=== PATIENT | female | born 1950 | race Caucasian/White ===

== ENCOUNTER 2016-09-27 13:22 | Emergency (ER) | payer MEDICARE, OTHER ==
[~2016-09-27] VITALS: Ht 160 cm; Wt 57.2 kg
[~2016-09-27 13:22] MED LIST: ACYC400T PO; ACYLOVIR PO; ASPI325T4 PO; BIMA2.5D EACHEYE; CARV3.12 PO; CEPH500C PO; CETI10CA PO; CRESTOR5 MG PO; CYAN10005 PO; DICL112S2 TP; DIPH25CA58 PO; ERYT250T14 PO; ESCI5TAB PEG; ESOM40CA PO; ESTR50GE TD; FENO160T PO; FENT1PAT17 TD; FENT1PAT19 TD; FLUO20CA16 PO; FLUT16SP NS; GABA100C6 PEG; HYDR-2680 PO; ISOS30TA4 PO; L GA1CAP2 PO; LAMO25TA PEG; LATA2.5D3 EACHEYE; LEVO100T5 PO; LEVO75TA5 PO; LORA0.5T PO; LOSA50TA6 PO; MELA5TAB4 PO; METO10TA81 PO; METO25TA4 PO; MULT-246 PO; MUPI22OI2 TP; ONDA4TAB10 PO; ONDA4TAB7 PO; PANT40TA3 PO; PRAV40TA2 PO; RANI300C PO; RANI300T PO; RANI50VI IJ; STOOL SOFTERNER PO; SUCR1TAB29 PO; TIZA4CAP3 PO; TRAZ50TA15 PO; [UNRECOGNIZED DRUG - OTHER] OU; lortab; lortab PO; renexa; resperidone
[2016-09-27 14:00] VITALS: BP 120/69
[2016-09-27] MEDS ORDERED: FENTANYL PF 100 MCG/2 ML VIAL. IV PRN (14:00)
--- NOTE | 2016-09-27 14:10 | PHYS DOC ---
Past Medical History Past Medical History: Arthritis, Arrhythmia, Fibromyalgia, Glaucoma, Hypertension, Hypothyroid, [place], TIA, Other Additional Past Medical Histor: 2 bulging discs, tremors, ULCERS, gastroparesis Past Surgical History: Cholecystectomy, Hysterectomy, Pacemaker, Other Additional Past Surgical Histo: L breast bx, fibroma L posterior knee, cardiac cath X 4 Alcohol Use: None Drug Use: None Adult General Chief Complaint Chief Complaint: GTUBE REPLACEMENT/MALFUNCTION HPI HPI 66-year-old female presenting to the emergency department after her G-tube fell out. She reports happened around 12:30. She also feels her J-tube is further out than normal. Location GI tract. Duration once. Timing this morning/ afternoon. No alleviating factors present. She denies nausea or vomiting. Review of Systems Review of Systems ROS negative for fevers chills nausea vomiting chest pain shortness of breath. All other review of systems is negative unless otherwise noted in history of present illness. Current Medications Current Medications Current Medications Medications (Trade) Dose Ordered Sig/Chantell Start Time Stop Time Status Last Admin Dose Admin Fentanyl Citrate (Fentanyl 2ml Vial) 50 mcg PRN Q30MIN PRN 09/27/16 14:00 09/27/16 14:57 DC Lidocaine HCl (Glydo (Lidocaine) Jelly) 1 donya 1X ONCE 09/27/16 14:30 09/27/16 14:31 DC 09/27/16 14:25 1 DONYA Allergies Allergies Allergies Coded Allergies Type Severity Reaction Last Updated Verified Penicillins Allergy Severe Rash 07/23/15 Yes Sulfa (Sulfonamide Antibiotics) Allergy Severe Rash 07/23/15 Yes benzocaine Allergy Severe SHORTNESS OF BREATH LOCAL ANESTHETICS 07/23/15 Yes lidocaine Allergy Severe SHORTNESS OF BREATH- LOCAL ANESTHESIA 07/23/15 Yes sulfite Allergy Severe Rash 07/23/15 Yes thimerosal Allergy Severe Anaphylaxis 07/23/15 Yes yellow dye Allergy Severe Rash 07/23/15 Yes Iodine and Iodide Containing Produc Allergy Intermediate Hives--Premedication does not work per patient 10/26/15 Yes barium sulfate Allergy Intermediate rash 10/26/15 Yes monosodium glutamate Allergy Intermediate Rash 07/23/15 Yes nickel Allergy Intermediate SEE COMMENT 07/23/15 Yes NSAIDS (Non-Steroidal Anti-Inflamma Adverse Reaction Intermediate Nausea and Vomiting 07/23/15 Yes Physical Exam Physical Exam Constitutional: Well developed, well nourished, no acute distress, non-toxic appearance. HENT: Normocephalic, atraumatic, bilateral external ears normal, oropharynx moist, no oral exudates, nose normal. [] Eyes: PERRLA, EOMI, conjunctiva normal, no discharge. [] Neck: Normal range of motion, no tenderness, supple, no stridor. Cardiovascular:Heart rate regular rhythm, no murmur [] Lungs & Thorax: Bilateral breath sounds clear to auscultation Abdomen: Abdomen has 2 ostomy sites in the epigastric region. The one in the more caudal direction is the G-tube ostomy. There is no surrounding evidence of infection. The caudal ostomy has the J tube in place currently. Skin: Warm, dry, no erythema, no rash. Back: No tenderness, no CVA tenderness. [] Extremities: No tenderness, no cyanosis, no clubbing, ROM intact, no edema. [] Neurologic: Alert and oriented X 3, normal motor function, normal sensory function, no focal deficits noted. Psychologic: Affect normal, judgement normal, mood normal. [] Current Patient Data Vital Signs Vital Signs Date Time Temp Pulse Resp B/P Pulse Ox O2 Delivery O2 Flow Rate FiO2 09/27/16 14:00 84 18 120/69 96 Room Air 09/27/16 13:32 98.2 98.2 EKG EKG [] Radiology/Procedures Radiology/Procedures [] Course & Med Decision Making Course & Med Decision Making Pertinent Labs and Imaging studies reviewed. (See chart for details) 66-year-old female presenting to the emergency department today after her gastrostomy tube fell out. On evaluation the patient's vital signs showed mild tachycardia likely secondary to pain. Otherwise afebrile. Physical exam showed both ostomy sites without any evidence of infection. The patient's G-tube was replaced in the emergency department. With a 22 [place]. Patient tolerated the procedure well. She was then subsequent discharged home to follow up with her GI doctor on Thursday or Thursday as she was concerned about her J-tube. Dragon Disclaimer Dragon Disclaimer This electronic medical record was generated, in whole or in part, using a voice recognition dictation system. Departure Departure Impression: Primary Impression: Malfunction of gastrostomy tube Disposition: HOME, SELF-CARE Condition: STABLE Referrals: LUCIANA RODRIGUEZ MD (PCP) Patient Instructions: Gastrostomy Tube, Adult Additional Instructions: Thank you for allowing us to participate in your care today. Followup with your GI if your symptoms do not improve. If you do not have a primary care provider you can ask for a list of our primary care providers. Return to the emergency department you have any new or concerning findings. This should be evaluated by the primary care physician and any necessary consulting services for continued management within a few days after discharge. Return to emergency room if you have any new or concerning symptoms including but not limited to fever, chills, nausea, vomiting, intractable pain, any new rashes, chest pain, shortness of air, uncontrolled bleeding, difficulty breathing, and/or vision loss. EILEEN DNAIELS MD Sep 27, 2016 14:10
[2016-09-27] MEDS ORDERED: LIDOCAINE 2% JELLY 6ML IN APPLICATOR. MM ONE (14:30)
== END 2016-09-27 14:57 | disposition home or self-care (01) ==
LOC: ER 13:22
DX: K94.23 Gastrostomy malfunction (principal); E03.9 Hypothyroidism, unspecified; I25.2 Old myocardial infarction; M79.7 Fibromyalgia; H40.9 Unspecified glaucoma; I10 Essential (primary) hypertension; M19.90 Unspecified osteoarthritis, unspecified site; Z86.73 Personal history of transient ischemic attack (TIA), and cerebral infarction without residual deficits; Z90.49 Acquired absence of other specified parts of digestive tract; Z90.710 Acquired absence of both cervix and uterus; Z95.0 Presence of cardiac pacemaker; Z88.0 Allergy status to penicillin; Z88.2 Allergy status to sulfonamides; Z88.4 Allergy status to anesthetic agent; Z88.1 Allergy status to other antibiotic agents; Z88.8 Allergy status to other drugs, medicaments and biological substances; Y84.8 Other medical procedures as the cause of abnormal reaction of the patient, or of later complication, without mention of misadventure at the time of the procedure; Y92.89 Other specified places as the place of occurrence of the external cause
CPT/HCPCS: 43760; 96374; 99284-25; 99285-25

== ENCOUNTER 2016-09-27 21:57 | Emergency (ER) | payer MEDICARE, OTHER ==
[~2016-09-27] VITALS: Ht 160 cm; Wt 57.2 kg
[2016-09-27 22:03] VITALS: BP 144/77
--- NOTE | 2016-09-27 22:18 | PHYS DOC ---
Past Medical History Past Medical History: Arthritis, Arrhythmia, Fibromyalgia, Glaucoma, Hypertension, Hypothyroid, [place], TIA, Other Additional Past Medical Histor: 2 bulging discs, tremors, ULCERS, gastroparesis Past Surgical History: Cholecystectomy, Hysterectomy, Pacemaker, Other Additional Past Surgical Histo: L breast bx, fibroma L posterior knee, cardiac cath X 4 Alcohol Use: None Drug Use: None Adult General Chief Complaint Chief Complaint: ABDOMINAL PAIN HPI HPI Patient is a 66 year old female who presents with pain at site of G-tube. Patient was in the emergency department earlier today with gastrostomy tube problem. It was replaced and she was discharged. She presents again tonight with pain at the site of the G-tube insertion. No fever. She has taken Lortab at home with insufficient relief. No other acute complaints. Review of Systems Review of Systems Constitutional: Denies fever or chills Eyes: Denies change in visual acuity or eye pain HENT: Denies nasal congestion or sore throat Respiratory: Denies cough or shortness of breath Cardiovascular: Denies chest pain GI: Pain at site of G-tube insertion. Denies nausea, vomiting, bloody stools or diarrhea : Denies dysuria or hematuria Musculoskeletal: Denies back pain or joint pain Integument: Denies rash or skin lesions Neurologic: Denies headache, focal weakness or sensory changes Current Medications Current Medications Current Medications Medications (Trade) Dose Ordered Sig/Chantell Start Time Stop Time Status Last Admin Dose Admin Fentanyl Citrate (Fentanyl 2ml Vial) 50 mcg 1X ONCE 09/27/16 22:30 09/27/16 22:31 DC 09/27/16 22:44 50 MCG Allergies Allergies Allergies Coded Allergies Type Severity Reaction Last Updated Verified Penicillins Allergy Severe Rash 07/23/15 Yes Sulfa (Sulfonamide Antibiotics) Allergy Severe Rash 07/23/15 Yes benzocaine Allergy Severe SHORTNESS OF BREATH LOCAL ANESTHETICS 07/23/15 Yes lidocaine Allergy Severe SHORTNESS OF BREATH- LOCAL ANESTHESIA 07/23/15 Yes sulfite Allergy Severe Rash 07/23/15 Yes thimerosal Allergy Severe Anaphylaxis 07/23/15 Yes yellow dye Allergy Severe Rash 07/23/15 Yes Iodine and Iodide Containing Produc Allergy Intermediate Hives--Premedication does not work per patient 10/26/15 Yes barium sulfate Allergy Intermediate rash 10/26/15 Yes monosodium glutamate Allergy Intermediate Rash 11/9/15 Yes nickel Allergy Intermediate SEE COMMENT 07/23/15 Yes NSAIDS (Non-Steroidal Anti-Inflamma Adverse Reaction Intermediate Nausea and Vomiting 07/23/15 Yes Physical Exam Physical Exam Constitutional: Well developed, well nourished, no acute distress, non-toxic appearance HENT: Normocephalic, atraumatic, bilateral external ears normal Eyes: EOMI, conjunctiva normal, no discharge Neck: Normal range of motion, no stridor Cardiovascular: Heart rate normal, regular rhythm, no murmur Lungs & Thorax: Bilateral breath sounds clear to auscultation Abdomen: Bowel sounds normal, soft, non-distended, TTP around site of G-tube insertion; no erythema, swelling, or warmth to touch at site; small amount serous drainage around tube Skin: Warm, dry, no erythema, no rash Extremities: No obvious deformity, no edema Neurologic: Alert and oriented X 3, no gross deficits noted Current Patient Data Vital Signs Vital Signs Date Time Temp Pulse Resp B/P Pulse Ox O2 Delivery O2 Flow Rate FiO2 09/27/16 22:44 18 98 09/27/16 22:03 98.9 82 144/77 Room Air 98.9 Lab Values Laboratory Tests Test 09/27/16 22:30 White Blood Count 7.6x10^3/uL (4.0-11.0) Red Blood Count 4.27x10^6/uL (3.50-5.40) Hemoglobin 12.1g/dL (12.0-15.5) Hematocrit 36.1% (36.0-47.0) Mean Corpuscular Volume 85fL (79-100) Mean Corpuscular Hemoglobin 28pg (25-35) Mean Corpuscular Hemoglobin Concent 33g/dL (31-37) Red Cell Distribution Width 14.3% (11.5-14.5) Platelet Count 189x10^3/uL (140-400) Neutrophils (%) (Auto) 45% (31-73) Lymphocytes (%) (Auto) 36% (24-48) Monocytes (%) (Auto) 11% (0-9) H Eosinophils (%) (Auto) 7% (0-3) H Basophils (%) (Auto) 1% (0-3) Neutrophils # (Auto) 3.4x10^3uL (1.8-7.7) Lymphocytes # (Auto) 2.7x10^3/uL (1.0-4.8) Monocytes # (Auto) 0.9x10^3/uL (0.0-1.1) Eosinophils # (Auto) 0.5x10^3/uL (0.0-0.7) Basophils # (Auto) 0.1x10^3/uL (0.0-0.2) Sodium Level 139mmol/L (136-145) Potassium Level 3.6mmol/L (3.5-5.1) Chloride Level 100mmol/L (98-107) Carbon Dioxide Level 30mmol/L (21-32) Anion Gap 9 (6-14) Blood Urea Nitrogen 15mg/dL (7-20) Creatinine 0.8mg/dL (0.6-1.0) Estimated GFR (Cockcroft-Gault) 72.2 Glucose Level 103mg/dL (70-99) H Calcium Level 9.0mg/dL (8.5-10.1) Laboratory Tests 09/27/16 22:30 Laboratory Tests 09/27/16 22:30 EKG EKG [] Radiology/Procedures Radiology/Procedures CT A/P: IMPRESSION 1. There is gastrostomy, also jejunostomy present. There is no significant free fluid or free air. There is a ventral hernia of the superior abdomen containing partial wall of the anterior stomach. Course & Med Decision Making Course & Med Decision Making Pertinent Labs and Imaging studies reviewed. (See chart for details) Patient is 66-year-old female presents with pain side of gastrostomy tube insertion which was replaced today. Will obtain CT abdomen/pelvis to evaluate placement. Labs ordered. IV pain medication ordered for patient comfort. Imaging results as above; I confirmed with radiology that G-tube in correct place. Labs unremarkable. No fever, no leukocytosis, no evidence of infectious processes at site on physical exam. Per my chart review, patient has been seen at least a dozen times during the past year with complaints related to her feeding tube. Discussed results with patient, as well as need to follow up with specialist. Patient given return precautions. Discharged home. Dragon Disclaimer Dragon Disclaimer This electronic medical record was generated, in whole or in part, using a voice recognition dictation system. Departure Departure Impression: Primary Impression: Complication of gastrostomy tube Disposition: HOME, SELF-CARE Condition: STABLE Referrals: LUCIANA RODRIGUEZ MD (PCP) Patient Instructions: Gastrostomy Tube, Adult Additional Instructions: Thank you for allowing us to provide care today in the Emergency Department. Schedule a follow up appointment with your dialysis biomed technician and surgeon as soon as possible. Return promptly to the Emergency Department if you develop any new or concerning symptoms, such as fever or worsening pain. ANGELINE SALGADO MD Sep 27, 2016 22:18
[2016-09-27] MEDS ORDERED: FENTANYL PF 100 MCG/2 ML VIAL. IV ONE (22:30)
[2016-09-27 22:40] LABS: BASO # 0.1 x10^3/uL (0.0-0.2); BASO % 1 % (0-3); EOS % 7 % (0-3); HEMATOCRIT 36.1 % (36.0-47.0); HEMOGLOBIN 12.1 g/dL (12.0-15.5); LYMPH # 2.7 x10^3/uL (1.0-4.8); LYMPH % 36 % (24-48); MEAN CORPUSCULAR HEMOGLOBIN 28 pg (25-35); MEAN CORPUSCULAR HGB CONC 33 g/dL (31-37); MEAN CORPUSCULAR VOLUME 85 fL (79-100); MONO % 11 % (0-9); NEUT % 45 % (31-73); PLATELET COUNT 189 x10^3/uL (140-400); RED BLOOD COUNT 4.27 x10^6/uL (3.50-5.40); RED CELL DISTRIBUTION WIDTH 14.3 % (11.5-14.5); WHITE BLOOD COUNT 7.6 x10^3/uL (4.0-11.0)
[2016-09-27 22:50] LABS: CREATININE 0.8 mg/dL (0.6-1.0); GFR 72.2; POTASSIUM 3.6 mmol/L (3.5-5.1)
--- NOTE | 2016-09-27 23:02 | RAD ---
PROCEDURE CT abdomen pelvis without contrast. HISTORY Pain and drainage to abdomen after G-tube replaced today TECHNIQUE Noncontrast CT imaging was performed of the abdomen and pelvis, multiplanar reconstruction images submitted. Exposure: One or more of the following individualized dose reduction techniques were utilized for this exam: 1. Automated exposure control. 2. Adjustment of the mA and/or kV according to patient size. 3. Use of iterative reconstruction technique. COMPARISON None FINDINGS There are leads from electronic cardiac device, not fully included. There is no significant abnormality of the limited visualized lung bases. Accurate evaluation of the abdominal visceral organs is limited without intravenous contrast. There is no obvious focal abnormality of the liver, spleen, or slightly fat replaced pancreas. There is no adrenal nodularity. There has been cholecystectomy. There is no renal or ureteral calculus or hydronephrosis. There is gastrostomy present. There is also jejunostomy present. Accurate evaluation of bowel is limited without oral contrast. There is no significant bowel dilatation, free air, free fluid. There is a broad ventral hernia of the superior abdomen, neck on the order of 4.8 centimeters transverse, partial wall of the anterior stomach involved. There are a few small subcentimeter inguinal lymph nodes bilaterally. Urinary bladder morphology is within normal limits. There is mild dextroscoliosis of the inferior lumbar spine. There is degenerative disc disease greatest at L2-3. There is grade 1 anterior spondylolisthesis at L4-5. IMPRESSION 1. There is gastrostomy, also jejunostomy present. There is no significant free fluid or free air. There is a ventral hernia of the superior abdomen containing partial wall of the anterior stomach. Electronically signed by: Cesar Waller MD (Sep 27, 2016 23:00:36)
== END 2016-09-27 23:45 | disposition home or self-care (01) ==
LOC: ER 21:57
DX: K94.29 Other complications of gastrostomy (principal); K43.9 Ventral hernia without obstruction or gangrene; I10 Essential (primary) hypertension; E03.9 Hypothyroidism, unspecified; K31.84 Gastroparesis; M79.7 Fibromyalgia; H40.9 Unspecified glaucoma; I25.2 Old myocardial infarction; Z86.73 Personal history of transient ischemic attack (TIA), and cerebral infarction without residual deficits; Z95.0 Presence of cardiac pacemaker; M19.90 Unspecified osteoarthritis, unspecified site; Z90.710 Acquired absence of both cervix and uterus; Z90.49 Acquired absence of other specified parts of digestive tract; Z87.19 Personal history of other diseases of the digestive system; Z88.0 Allergy status to penicillin; Z88.2 Allergy status to sulfonamides; Z88.8 Allergy status to other drugs, medicaments and biological substances; Z88.4 Allergy status to anesthetic agent; Z91.041 Radiographic dye allergy status; Y83.3 Surgical operation with formation of external stoma as the cause of abnormal reaction of the patient, or of later complication, without mention of misadventure at the time of the procedure; Y92.89 Other specified places as the place of occurrence of the external cause
CPT/HCPCS: 36415; 43760; 74176; 80048; 85027; 96374; 99285; J3010

== ENCOUNTER 2016-09-30 09:59 | Outpatient (CLI) | payer MEDICARE, OTHER ==
[2016-09-30 10:30] LABS: BASO % 1 % (0-3); EOS % 8 % (0-3); HEMATOCRIT 35.3 % (36.0-47.0); HEMOGLOBIN 11.7 g/dL (12.0-15.5); LYMPH # 2.1 x10^3/uL (1.0-4.8); LYMPH % 45 % (24-48); MEAN CORPUSCULAR HEMOGLOBIN 28 pg (25-35); MEAN CORPUSCULAR HGB CONC 33 g/dL (31-37); MEAN CORPUSCULAR VOLUME 85 fL (79-100); MONO % 9 % (0-9); NEUT % 37 % (31-73); PLATELET COUNT 174 x10^3/uL (140-400); RED BLOOD COUNT 4.18 x10^6/uL (3.50-5.40); RED CELL DISTRIBUTION WIDTH 14.3 % (11.5-14.5); WHITE BLOOD COUNT 4.6 x10^3/uL (4.0-11.0)
[2016-09-30 10:37] LABS: PROTHROMBIN TIME PATIENT 12.6 SEC (11.7-14.0)
[2016-09-30 10:38] VITALS: BP 109/58
[2016-09-30] MEDS ORDERED: FENTANYL PF 100 MCG/2 ML VIAL. ONE (13:12)
[2016-09-30] MEDS ORDERED: MIDAZOLAM HCL 2 MG/2 ML VIAL. ONE (13:12)
[2016-09-30] MEDS ORDERED: FENTANYL PF 100 MCG/2 ML VIAL. IV ONE (13:30)
[2016-09-30] MEDS ORDERED: MIDAZOLAM HCL 2 MG/2 ML VIAL. IV ONE (13:30)
[2016-09-30] MEDS ORDERED: LIDOCAINE 1% / SOD BICARB 8.4% 20 ML VIAL. IJ ONE (13:30)
[2016-09-30 13:31] VITALS: BP 134/64
[2016-09-30 13:50] VITALS: BP 120/64
[2016-09-30 14:30] VITALS: BP 130/62
--- NOTE | 2016-09-30 14:59 | PDOC ---
BRIEF OPERATIVE NOTE Pre-Op Diagnosis G and J tube dependent Post-Op Diagnosis same Procedure Performed G and J tube exchanges under fluoroscopy Surgeon Lilian Anesthesia Type: Conscious Sedation Findings G and J tubes in good position and suitable for use Complications No immediate SERGEI JUNIOR MD Sep 30, 2016 14:59
--- NOTE | 2016-09-30 14:59 | PDOC ---
MODERATE SEDATION ASSESSMENT RISKS/ALTERNATIVES Risks/Alternatives Risks and alternatives of this type of sedation and procedure discussed with: RISK/ALTERNATIVES: Patient H & P ON CHART H & P H & P on chart and reviewed for co-morbid conditions and appropriate labs. H&P ON CHART: Yes STATUS PREG STATUS ASSESSED: Yes MEDS/ALLERGIES REVIEWED Meds/Allergies Reviewed Medications and Allergies including time and route of recently administered narcotics and sedatives. MEDS/ALLERGIES REVIEWED: Yes ASA RATING ASA RATING: II AIRWAY ASSESSMENT Airway Assessment Airway patency, oral function limitations, presence of caps, crowns, dentures, partials, and ability to extend neck assessed. AIRWAY ASSESSMENT: Yes MALLAMPATI SCORE MALLAMPATI SCORE: II PRE-SEDATION ASSESSMENT PRE-SEDATION ASSESSMENT: Yes SERGEI JUNIOR MD Sep 30, 2016 14:58
--- NOTE | 2016-10-01 08:58 | RAD ---
Procedure: Fluoroscopic guided gastrostomy tube exchange and fluoroscopic guided jejunostomy tube exchange. Clinical Indication: 66-year-old with chronic indwelling percutaneous gastrostomy tube, and separate chronic indwelling percutaneous jejunostomy ostomy tube, requiring routine exchange. Sedation: Conscious sedation was administered for 27 minutes. The patient was monitored by a qualified independent observer throughout the time of sedation. Please refer to the medical record for exact doses of medications utilized to achieve moderate sedation. Antibiotics: None Exposure: Fluoro Time: 1.0 minutes Images: 2 Contrast: Air contrast was utilized Sterility: All elements of maximal sterile barrier technique including the use of a cap, mask, sterile gown, sterile gloves, large sterile sheet, appropriate hand hygiene, and 2% chlorhexidine for cutaneous antisepsis (or acceptable alternative antiseptic per current guidelines) were followed for this procedure. Consent: The procedure was explained in its entirety to the patient or the patients designated sales representative supervisor by a member of the treatment team, including a discussion of the risks, benefits and commonly accepted alternatives to the procedure, as well as the expected consequences of no therapy whatsoever. Discussion of the risks included, but was not limited to, those that are most frequent and those that are rare but possibly severe or life-threatening, as well as the possibility of unforeseen complications. Technique and Findings: Following informed consent, the patient was prepped and draped in usual sterile fashion. The balloon on the jejunostomy tube was deflated. The entirety of the tube was then removed over a stiff wire, and a new 18 Iranian jejunal tube was advanced over the wire and positioned deep within the jejunum. The balloon was inflated and the tube was pulled taut against the abdominal wall. Air was then injected confirming good position within the jejunum. The balloon on the gastrostomy tube was then deflated and the gastrostomy tube was removed under fluoroscopic guidance over wire. A new 22 Iranian gastrostomy tube was advanced over the wire and the balloon was inflated and the catheter was pulled taut against anterior abdominal wall. Air was then injected confirming good location of this gastrostomy tube within the gastric lumen. Complications: No immediate Impression: 1. Fluoroscopic guided exchange of a percutaneous jejunostomy tube as described. 2. Fluoroscopic guided exchange of a percutaneous gastrostomy tube as described.
== END 2016-09-30 14:45 | disposition home or self-care (01) ==
LOC: INTRAD 09:59
PROVIDERS: ATTEND Pediatrics
DX: Z93.1 Gastrostomy status (principal); H40.9 Unspecified glaucoma; G45.9 Transient cerebral ischemic attack, unspecified; I50.9 Heart failure, unspecified; Z95.0 Presence of cardiac pacemaker; E78.00 Pure hypercholesterolemia, unspecified; I48.91 Unspecified atrial fibrillation; I10 Essential (primary) hypertension; Z90.49 Acquired absence of other specified parts of digestive tract; K21.9 Gastro-esophageal reflux disease without esophagitis; Z90.710 Acquired absence of both cervix and uterus; Z90.721 Acquired absence of ovaries, unilateral; M19.90 Unspecified osteoarthritis, unspecified site; E16.2 Hypoglycemia, unspecified; E03.9 Hypothyroidism, unspecified; F41.9 Anxiety disorder, unspecified; F32.9 Major depressive disorder, single episode, unspecified
CPT/HCPCS: 36415; 49450; 49451; 85027; 85610; J2250; J3010

== ENCOUNTER 2016-10-03 13:36 | Emergency (ER) | payer MEDICARE, OTHER | END 2016-10-03 14:11 | disposition left against medical advice (07) | LOC: ER 14:02 | DX: K94.23 Gastrostomy malfunction (principal); Z53.21 Procedure and treatment not carried out due to patient leaving prior to being seen by health care provider ==

== ENCOUNTER 2016-10-03 14:44 | Emergency (ER) | payer MEDICARE, OTHER ==
[2016-10-03 16:00] VITALS: BP 152/72
--- NOTE | 2016-10-03 16:34 | PHYS DOC ---
Past Medical History Past Medical History: Arthritis, Arrhythmia, Fibromyalgia, Glaucoma, Hypertension, Hypothyroid, [place], TIA, Other Additional Past Medical Histor: 2 bulging discs, tremors, ULCERS, gastroparesis Past Surgical History: Cholecystectomy, Hysterectomy, Pacemaker, Other Additional Past Surgical Histo: L breast bx, fibroma L posterior knee, cardiac cath X 4 Alcohol Use: None Drug Use: None Adult General Chief Complaint Chief Complaint: GI PROBLEM HPI HPI Patient is a 66 year old female with history of G-tube and J-tube who presents with leaking from her G-tube. She states one of the ports has been broken recently. Of note, this was just changed out within the past week. She has otherwise been getting all of her fluid intake otherwise. She denies increased abdominal pain, nausea or vomiting, fever or chills. She has no other acute complaints at this time. Review of Systems Review of Systems Constitutional: Denies fever or chills [] Eyes: Denies change in visual acuity, redness, or eye pain [] HENT: Denies nasal congestion or sore throat [] Respiratory: Denies cough or shortness of breath [] Cardiovascular: No additional information not addressed in HPI [] GI: Denies abdominal pain, nausea, vomiting, bloody stools or diarrhea [] : Denies dysuria or hematuria [] Musculoskeletal: Denies back pain or joint pain [] Integument: Denies rash or skin lesions [] Neurologic: Denies headache, focal weakness or sensory changes [] Endocrine: Denies polyuria or polydipsia [] Allergies Allergies Allergies Coded Allergies Type Severity Reaction Last Updated Verified Penicillins Allergy Severe Rash 07/23/15 Yes Sulfa (Sulfonamide Antibiotics) Allergy Severe Rash 07/23/15 Yes benzocaine Allergy Severe SHORTNESS OF BREATH LOCAL ANESTHETICS 07/23/15 Yes lidocaine Allergy Severe SHORTNESS OF BREATH- LOCAL ANESTHESIA 07/23/15 Yes sulfite Allergy Severe Rash 07/23/15 Yes thimerosal Allergy Severe Anaphylaxis 07/23/15 Yes yellow dye Allergy Severe Rash 07/23/15 Yes Iodine and Iodide Containing Produc Allergy Intermediate Hives--Premedication does not work per patient 10/26/15 Yes barium sulfate Allergy Intermediate rash 10/26/15 Yes monosodium glutamate Allergy Intermediate Rash 07/23/15 Yes nickel Allergy Intermediate SEE COMMENT 07/23/15 Yes NSAIDS (Non-Steroidal Anti-Inflamma Adverse Reaction Intermediate Nausea and Vomiting 07/23/15 Yes Physical Exam Physical Exam Constitutional: Well developed, well nourished, no acute distress, non-toxic appearance. [] HENT: Normocephalic, atraumatic, bilateral external ears normal, oropharynx moist, nose normal. [] Eyes: PERRLA, EOMI. [] Neck: Normal range of motion, supple. [] Cardiovascular:Heart rate regular rhythm [] Lungs & Thorax: Bilateral breath sounds clear to auscultation [] Abdomen: Bowel sounds normal, soft. G and J-tube to left upper quadrant. G-tube with broken port with surrounding tape. Clear gastric liquids in tubes. [] Skin: Warm, dry, no erythema, no rash. [] Back: Normal range of motion. [] Extremities: ROM intact, no edema. [] Neurologic: Alert and oriented X 3, normal motor function, normal sensory function, no focal deficits noted. [] Psychologic: Affect normal, judgement normal, mood normal. [] Current Patient Data Vital Signs Vital Signs Date Time Temp Pulse Resp B/P Pulse Ox O2 Delivery O2 Flow Rate FiO2 10/03/16 16:00 98.3 79 18 152/72 98 Room Air 98.3 Course & Med Decision Making Course & Med Decision Making Pertinent Labs and Imaging studies reviewed. (See chart for details) G-tube exchange without difficulty using jelly lubricant. Bulb was inflated to 8 mL, resulting in firm seating. G-tube was flushed without incident. She tolerated the procedure well. Return precautions given. She understands and agrees with plan. Dragon Disclaimer Dragon Disclaimer This electronic medical record was generated, in whole or in part, using a voice recognition dictation system. Departure Departure Impression: Primary Impression: Malfunction of gastrostomy tube Disposition: HOME, SELF-CARE Condition: STABLE Referrals: LUCIANA RODRIGUEZ MD (PCP) Patient Instructions: Gastrostomy Tube, Adult Additional Instructions: Follow-up in clinic. Return for any concerns. Ross BENITEZ MD Oct 03, 2016 16:34
== END 2016-10-03 16:46 | disposition home or self-care (01) ==
LOC: ER 14:44
DX: K94.23 Gastrostomy malfunction (principal); I10 Essential (primary) hypertension; E03.9 Hypothyroidism, unspecified; M79.7 Fibromyalgia; I25.2 Old myocardial infarction; Z86.73 Personal history of transient ischemic attack (TIA), and cerebral infarction without residual deficits; H40.9 Unspecified glaucoma; M19.90 Unspecified osteoarthritis, unspecified site; Z90.49 Acquired absence of other specified parts of digestive tract; Z90.710 Acquired absence of both cervix and uterus; Z95.0 Presence of cardiac pacemaker; Z98.890 Other specified postprocedural states; Z88.0 Allergy status to penicillin; Z88.2 Allergy status to sulfonamides; Z88.8 Allergy status to other drugs, medicaments and biological substances; Z88.4 Allergy status to anesthetic agent; Z91.041 Radiographic dye allergy status; Y83.8 Other surgical procedures as the cause of abnormal reaction of the patient, or of later complication, without mention of misadventure at the time of the procedure; Y92.89 Other specified places as the place of occurrence of the external cause
CPT/HCPCS: 43760; 99284-25

== ENCOUNTER → 2016-10-06 | Outpatient (CLI) | payer MEDICARE, OTHER ==
[2016-10-03 16:00] VITALS: BP 152/72
--- NOTE | 2016-10-06 10:39 | RAD ---
Indication: Sitzmarks marker study and gastric comparison is. Time of exam 0958 hours. Day 4 of Sitzmarks ingestion demonstrates numerous Sitzmarks markers throughout the transverse colon and in the region of the splenic flexure. There appears to be a single Sitzmarks are in the midline of the pelvis, likely within the rectum. There is a single Sitzmarks marker are noted in the mid ascending colon. Impression: Sitzmarks marker study demonstrating the majority of the markers to be located throughout the transverse colon, as described.
== END | disposition home or self-care (01) ==
LOC: RAD 09:11
PROVIDERS: ATTEND Internal Medicine Gastroenterology
DX: R19.7 Diarrhea, unspecified (principal); K31.84 Gastroparesis
CPT/HCPCS: 74000

== ENCOUNTER → 2016-10-10 | Outpatient (CLI) | payer MEDICARE, OTHER ==
[2016-10-03 16:00] VITALS: BP 152/72
[~2016-10-10] MED LIST changes: -RANI50VI IJ; +RANI50VI5 IJ
--- NOTE | 2016-10-10 12:29 | RAD ---
STANLEY, 10/10/2016: History: Sitzmarks study Comparison is made to a study from 10/06/2016. Reportedly this is day 7 of a Sitzmarks exam. Radiopaque markers evident in the colon on the 10/06/2016 study have cleared. The abdominal gas pattern is unremarkable. A tube in the left upper quadrant is probably a gastrostomy tube. An additional tube extending into the right lower quadrant may represent a jejunostomy tube. Correlation with the patient's surgical history is suggested. IMPRESSION: The Sitzmarks markers have cleared from the GI tract since 10/06/2016.
== END | disposition home or self-care (01) ==
LOC: RAD 08:00
PROVIDERS: ATTEND Pediatrics
DX: K31.84 Gastroparesis (principal); R19.7 Diarrhea, unspecified
CPT/HCPCS: 74000

== ENCOUNTER → 2016-12-05 | Outpatient (CLI) | payer MEDICARE, OTHER ==
[~2016-12-05] VITALS: Ht 160 cm; Wt 57.2 kg
[2016-12-05] VITALS (7 sets, daily range): BP systolic 112–161; BP diastolic 58–101
[~2016-12-05] MED LIST changes: +CALC600T4 PO; +CIPR500T94 PO; +FENTANYL PF 250 MCG/5 ML VIAL. IV ONE; +FENTANYL PF 250 MCG/5 ML VIAL. ONE; +LACT1CAP29 PO; +LAMO200T PO; +LIDOCAINE 1% / SOD BICARB 8.4% 20 ML VIAL. IJ ONE; +MIDAZOLAM HCL/PF 5 MG/5 ML VIAL IV ONE; +MIDAZOLAM HCL/PF 5 MG/5 ML VIAL ONE; +MULT-496 PO; +NYST15CR2 TP; +QUET50TA5 PO
--- NOTE | 2016-12-05 10:05 | PDOC ---
BRIEF OPERATIVE NOTE Pre-Op Diagnosis J-tube dependent Post-Op Diagnosis same Procedure Performed J-tube exchange Surgeon Lilian Anesthesia Type: Conscious Sedation Findings 18F j-tube exchange Complications No immediate SERGEI JUNIOR MD Dec 05, 2016 10:05
--- NOTE | 2016-12-05 10:05 | PDOC ---
MODERATE SEDATION ASSESSMENT RISKS/ALTERNATIVES Risks/Alternatives Risks and alternatives of this type of sedation and procedure discussed with: RISK/ALTERNATIVES: Patient H & P ON CHART H & P H & P on chart and reviewed for co-morbid conditions and appropriate labs. H&P ON CHART: Yes STATUS PREG STATUS ASSESSED: Yes MEDS/ALLERGIES REVIEWED Meds/Allergies Reviewed Medications and Allergies including time and route of recently administered narcotics and sedatives. MEDS/ALLERGIES REVIEWED: Yes ASA RATING ASA RATING: II AIRWAY ASSESSMENT Airway Assessment Airway patency, oral function limitations, presence of caps, crowns, dentures, partials, and ability to extend neck assessed. AIRWAY ASSESSMENT: Yes MALLAMPATI SCORE MALLAMPATI SCORE: II PRE-SEDATION ASSESSMENT PRE-SEDATION ASSESSMENT: Yes SERGEI JUNIOR MD Dec 05, 2016 10:05
--- NOTE | 2016-12-05 10:14 | RAD ---
Procedure: Fluoroscopic guided jejunostomy tube replacement Clinical Indication: 66-year-old female with J-tube dependence requiring routine exchange. Sedation: Conscious sedation was administered for 15 minutes. The patient was monitored by a qualified independent observer throughout the time of sedation. Please refer to the medical record for exact doses of medications utilized to achieve moderate sedation. Antibiotics: None Exposure: Kerma-Area Product: 2 Gycm2 Contrast: None. Air contrast was used to confirm intraluminal position of the new jejunostomy tube. Sterility: The procedure was performed in its entirety using appropriate elements of sterile technique. Consent: The procedure was explained in its entirety to the patient or the patients designated union representative by a member of the treatment team, including a discussion of the risks, benefits and commonly accepted alternatives to the procedure, as well as the expected consequences of no therapy whatsoever. Discussion of the risks included, but was not limited to, those that are most frequent and those that are rare but possibly severe or life-threatening, as well as the possibility of unforeseen complications. Technique and Findings: Following informed consent, the patient was prepped and draped in usual sterile fashion. Fluoroscopy of the abdomen revealed an intact degenerative ostomy tube. 1% lidocaine was used to achieve local anesthesia around the ostomy site. The balloon was then deflated and the existing tube was removed over a stiff Glidewire. A new 18 Micronesian jejunostomy tube was advanced over the wire and positioned deep within the jejunum. The balloon was inflated with 10 cc of sterile water and pulled taut against the anterior abdomen. The retention disc was then slid into place to prevent mobility of the tube. The tube was then injected with air and found to be intraluminal. Complications: No immediate Impression: 1. Fluoroscopic guided jejunostomy tube exchange as described
== END | disposition home or self-care (01) ==
LOC: INTRAD 08:15
PROVIDERS: ATTEND Surgery
DX: K94.13 Enterostomy malfunction (principal); E78.00 Pure hypercholesterolemia, unspecified; I48.91 Unspecified atrial fibrillation; I10 Essential (primary) hypertension; K21.9 Gastro-esophageal reflux disease without esophagitis; M19.90 Unspecified osteoarthritis, unspecified site; F41.9 Anxiety disorder, unspecified; F32.9 Major depressive disorder, single episode, unspecified; E03.9 Hypothyroidism, unspecified; E16.2 Hypoglycemia, unspecified; Z87.39 Personal history of other diseases of the musculoskeletal system and connective tissue; Z90.710 Acquired absence of both cervix and uterus; Z90.49 Acquired absence of other specified parts of digestive tract
CPT/HCPCS: 49451; J2250; J3010

== ENCOUNTER → 2016-12-19 | Outpatient (CLI) | payer MEDICARE, OTHER ==
[~2016-12-19] VITALS: Ht 160 cm; Wt 53.1 kg
[~2016-12-19] MED LIST changes: +FENTANYL PF 100 MCG/2 ML VIAL. IV ONE; +FENTANYL PF 100 MCG/2 ML VIAL. ONE; -FENTANYL PF 250 MCG/5 ML VIAL. IV ONE; -FENTANYL PF 250 MCG/5 ML VIAL. ONE; +IOHEXOL 300 MG/ML 50 ML VIAL. ONE; -LIDOCAINE 1% / SOD BICARB 8.4% 20 ML VIAL. IJ ONE; +MIDAZOLAM HCL/PF 2 MG/2 ML VIAL. IV ONE; +MIDAZOLAM HCL/PF 2 MG/2 ML VIAL. ONE; -MIDAZOLAM HCL/PF 5 MG/5 ML VIAL IV ONE; -MIDAZOLAM HCL/PF 5 MG/5 ML VIAL ONE
[2016-12-19 12:37] VITALS: BP 152/76
[2016-12-19 12:51] VITALS: BP 123/70
--- NOTE | 2016-12-19 12:53 | PDOC ---
MODERATE SEDATION ASSESSMENT RISKS/ALTERNATIVES Risks/Alternatives Risks and alternatives of this type of sedation and procedure discussed with: RISK/ALTERNATIVES: Patient H & P ON CHART H & P H & P on chart and reviewed for co-morbid conditions and appropriate labs. H&P ON CHART: Yes STATUS PREG STATUS ASSESSED: N/A MEDS/ALLERGIES REVIEWED Meds/Allergies Reviewed Medications and Allergies including time and route of recently administered narcotics and sedatives. MEDS/ALLERGIES REVIEWED: Yes ASA RATING ASA RATING: II AIRWAY ASSESSMENT Airway Assessment Airway patency, oral function limitations, presence of caps, crowns, dentures, partials, and ability to extend neck assessed. AIRWAY ASSESSMENT: Yes MALLAMPATI SCORE MALLAMPATI SCORE: II PRE-SEDATION ASSESSMENT PRE-SEDATION ASSESSMENT: Yes CRISSY CONTEH MD Dec 19, 2016 12:53
--- NOTE | 2016-12-19 12:58 | PDOC1 ---
History and Physical Date of Procedure Date of Admission 12/19/16 Procedure Procedure Fluoro guided J tube replacement Indication Indication 66 YO female with gastroparesis and leaking J-tube. Past Medical History Past Medical History See Nursing Pre procedure PMH Past Surgical History Past Surgical History See Nursing Pre procedure PSH Current Medications Current Medications Current Medications Iohexol (Omnipaque 300 Mg/ml) 50 ml STK-MED ONCE .ROUTE ; Start 12/19/16 at 11:43 ; Stop 12/19/16 at 11:44; Status DC Fentanyl Citrate (Fentanyl 2ml Vial) 100 mcg STK-MED ONCE .ROUTE ; Start at 12:15; Stop 12/19/16 at 12:16; Status DC Midazolam HCl (Versed) 2 mg STK-MED ONCE .ROUTE ; Start 12/19/16 at 12:15; Stop 12/19/16 at 12:16; Status DC Midazolam HCl (Versed) 2 mg 1X ONCE IV Last administered on 12/19/16t 12:37; Start 12/19/16 at 12:30; Stop 12/19/16 at 12:33; Status DC Fentanyl Citrate (Fentanyl 2ml Vial) 100 mcg 1X ONCE IV Last administered on t 12:37; Start 12/19/16 at 12:30; Stop 12/19/16 at 12:33; Status DC Active Scripts Active Reported Probiotic (Lactobacillus Combo No.10) 1 Each Capsule 1 Each PO Daily Value (Multivitamin) 1 Each Tablet 1 Each PO Calcium (Calcium Carbonate) 600 Mg Tablet 600 Mg PO BID Lumigan (Bimatoprost) 2.5 Ml Drops 1 Drop EACHEYE QHS Lamotrigine 200 Mg Tablet 200 Mg PO DAILY Seroquel (Quetiapine Fumarate) 50 Mg Tablet 50-100 Mg PO HS Seroquel (Quetiapine Fumarate) 50 Mg Tablet 50 Mg PO BID Zofran Odt (Ondansetron) 4 Mg Tab.rapdis 4 Mg PO QID PRN Nystatin-Triamcinolone Cream (Nystatin/Triamcin) 15 Gm Cream..g. 1 [place] TP BID Cipro (Ciprofloxacin Hcl) 500 Mg Tablet 500 Mg PO BID 7 Days Pravastatin Sodium 40 Mg Tablet 40 Mg PO DAILY FENTANYL 75mcg/hr (Fentanyl) 1 Each Patch.td72 1 Patch TD Q72H Gabapentin 100 Mg Capsule 300 Mg PEG TID Nexium Capsule (Esomeprazole Magnesium) 40 Mg Capsule.dr 80 Mg PO DAILYAC Losartan Potassium 50 Mg Tablet 100 Mg PO DAILY Zanaflex (Tizanidine Hcl) 4 Mg Capsule 1 Cap PO QHS Ranitidine Hcl 300 Mg Capsule 1 Cap PO BID Lorazepam 0.5 Mg Tablet 0.5 Mg PO DAILY PRN Levothyroxine Sodium 100 Mcg Tablet 100 Mcg PO DAILYAC Acyclovir 400 Mg Tablet 400 Mg PO DAILY Lortab 10-325 mg Tablet (Hydrocodone/Acetaminophen) 1 Each Tablet 1 Tab PO Q4HRS PRN Zanaflex (Tizanidine Hcl) 4 Mg Capsule 1 Cap PO BID PRN Allergies Allergies: Coded Allergies: Penicillins (Verified Allergy, Severe, Rash, 07/23/15) Sulfa (Sulfonamide Antibiotics) (Verified Allergy, Severe, Rash, 07/23/15) benzocaine (Verified Allergy, Severe, SHORTNESS OF BREATH LOCAL ANESTHETICS, 07/23/15) sulfite (Verified Allergy, Severe, Rash, 07/23/15) thimerosal (Verified Allergy, Severe, Anaphylaxis, 07/23/15) and rash yellow dye (Verified Allergy, Severe, Rash, 07/23/15) Iodine and Iodide Containing Produc (Verified Allergy, Intermediate, Hives --Premedication does not work per patient, 10/26/15) pt stated that she had a rash with PO contrast post premedication, Rn looked at her and did not see a rash. pt stated that she would feel more comfortable to not take iodine contrast in the future. barium sulfate (Verified Allergy, Intermediate, rash, 10/26/15) monosodium glutamate (Verified Allergy, Intermediate, Rash, 07/23/15) nickel (Verified Allergy, Intermediate, SEE COMMENT, 07/23/15) pt said the metal decomposes on her skin - itching NSAIDS (Non-Steroidal Anti-Inflamma (Verified Adverse Reaction, Intermediate, Nausea and Vomiting, 07/23/15) Physical Exam Vital Signs Vital Signs Date Time Temp Pulse Resp B/P Pulse Ox O2 Delivery O2 Flow Rate FiO2 12/19/16 12:37 16 97 Room Air 12/19/16 12:37 61 Lungs: Clear to auscultation Heart: Regular rate Psych/Mental Status: Mental status NL Other Significant leakage along J-tube tract----Since insertion, the patient has advanced J-tube such that retention balloon does not oppose jejunal wall---this may well result in tract leakage. Assessment Assessment Gastroparesis with leaking J-tube. Problems: Plan Plan Fluoro guided J-tube replacement. Instruct patient to leave new J-tube in place as repositioned by IRCRISSY OLIVIER MD Dec 19, 2016 12:58
--- NOTE | 2016-12-19 13:13 | PDOC ---
Exam Supervisor Baking Supervisor Baking Willie Rod Bending Machine Operator Rod Bending Machine Operator John Vela Pre-Procedure Diagnosis Pre-Procedure Diagnosis Gastroparesis. Leaking J-tube, which has been advanced so that retention balloon does not oppose jejunal wall. Post-Procedure Diagnosis Post-Procedure Diagnosis Same. Procedure Performed Procedure Performed Fluoro guided J-tube replacement Type of Anesthesia Type of Anesthesia Moderate sedation Estimated Blood Loss EBL: None Specimens Specimans 18F ADDI J-tube removed and discarded Drain/Tubes Drains/Tubes New 18F ADDI J-tube inserted---OK to use Condition of Patient Condition of Patient No apparent complication. Disposition Disposition Discharge from [facility] post recovery, if no problems. F/u with referring physician. OK to use new J tube. Leave J tube as positioned by IR. Full report to follow. CRISSY CONTEH MD Dec 19, 2016 13:13
--- NOTE | 2016-12-20 10:41 | RAD ---
Fluoroscopy guided jejunostomy tube replacement Indication: 66-year-old female with gastroparesis. Leaking jejunostomy tube. J-tube replacement has been requested. Fluoroscopy time: 0.5 minutes Kerma-area Product: 1 Gycm2 Contrast material: Room air Anesthesia: 16 minutes moderate sedation was provided utilizing a total of 2 mg Versed and 100 mcg fentanyl, IV. The patient was appropriately monitored by a qualified independent observer throughout the time of moderate sedation. Sterility: All elements of maximal sterile barrier technique were utilized, including cap, mask, sterile gown, sterile gloves, large sterile sheet, appropriate hand hygiene, and 2% chlorhexidine for cutaneous antisepsis. Procedure: Informed consent was obtained from the patient. She was placed supine on the angiography table. Using aseptic technique, room air was injected through her indwelling 18 English ADDI jejunostomy tube, confirming intraluminal position of the J-tube tip. Retention balloon of the indwelling J-tube was deflated. The jejunostomy tube was removed over a Roadrunner guidewire. A new 18 English ADDI J-tube was then advanced over the Roadrunner wire under fluoroscopic guidance. Room air was injected, confirming intraluminal position of the catheter tip. This was recorded with a fluoroscopic spot image. Retention balloon was inflated with 8 cc of sterile water. A sterile dressing was applied. Patient tolerated the procedure well without apparent complication. Impression: Successful, uneventful fluoroscopy guided jejunostomy tube replacement, as described.
== END | disposition home or self-care (01) ==
LOC: INTRAD 10:42
PROVIDERS: ATTEND Surgery
DX: T85.598A Other mechanical complication of other gastrointestinal prosthetic devices, implants and grafts, initial encounter (principal); K31.84 Gastroparesis; E66.9 Obesity, unspecified
CPT/HCPCS: 49451; C1769; J2250; J3010

== ENCOUNTER → 2016-12-25 | Outpatient (CLI) | payer MEDICARE, OTHER ==
[2016-12-19 12:51] VITALS: BP 123/70
[~2016-12-25] MED LIST changes: -FENTANYL PF 100 MCG/2 ML VIAL. IV ONE; -FENTANYL PF 100 MCG/2 ML VIAL. ONE; +HYDR-971 PO; -IOHEXOL 300 MG/ML 50 ML VIAL. ONE; +METR500T PO; -MIDAZOLAM HCL/PF 2 MG/2 ML VIAL. IV ONE; -MIDAZOLAM HCL/PF 2 MG/2 ML VIAL. ONE; +ONDA4TAB10 SL
--- NOTE | 2016-12-25 11:40 | RAD ---
Abdominal ultrasound, 12/25/2016: History: Right upper quadrant pain The gallbladder is surgically absent. The common hepatic duct is of normal caliber. There is no evidence of a hepatic mass. The visualized portions of the pancreas, spleen and both kidneys are unremarkable. The abdominal aorta is of normal caliber. The inferior vena cava is unremarkable. No free fluid is evident in the abdomen. IMPRESSION: 1. Status post cholecystectomy. 2. No acute abdominal abnormality is detected.
== END | disposition home or self-care (01) ==
LOC: US 06:04
PROVIDERS: ATTEND Internal Medicine Gastroenterology
DX: R10.11 Right upper quadrant pain (principal); Z90.49 Acquired absence of other specified parts of digestive tract
CPT/HCPCS: 76700

== ENCOUNTER 2016-12-26 07:30 | Emergency (ER) | payer MEDICARE, OTHER ==
[~2016-12-26] VITALS: Ht 160 cm; Wt 57.6 kg
[~2016-12-26 07:30] MED LIST changes: -HYDR-971 PO; -METR500T PO; -ONDA4TAB10 SL
[2016-12-26] MEDS ORDERED: IV NORMAL SALINE 1000ML BAG 1,000 ML IV SCH (08:02)
[2016-12-26] MEDS ORDERED: ONDANSETRON PF 4 MG/2 ML VIAL. IV ONE (08:15)
[2016-12-26] MEDS ORDERED: MORPHINE SULFATE 4 MG/ML DISP.SYRIN. IV/SQ PRN (08:15)
--- NOTE | 2016-12-26 08:16 | PHYS DOC ---
Past Medical History Past Medical History: Arthritis, Arrhythmia, Fibromyalgia, Glaucoma, Hypertension, Hypothyroid, [place], TIA, Other Additional Past Medical Histor: 2 bulging discs, tremors, ULCERS, gastroparesis Past Surgical History: Cholecystectomy, Hysterectomy, Pacemaker, Other Additional Past Surgical Histo: L breast bx, fibroma L posterior knee, cardiac cath X 4, J-tube Additional Information: nonsmoker Alcohol Use: None Drug Use: None Adult General Chief Complaint Chief Complaint: ABDOMINAL PAIN HPI HPI Patient is a 66 year old female with history of severe gastroparesis requiring placement of a J-tube who presents with 3 days of diarrhea. She reports lower abdominal pain and nausea with occasional vomiting. She denies fevers. There has not been blood in the stool. She had an outpatient RUQ ultrasound done here yesterday that was unremarkable. She has been taking Imodium at home without relief of the diarrhea. She was prescribed antibiotics last month for a J-tube site skin infection. She has been seeing wound care at for some skin breakdown around the J-tube insertion site as well. Her PCP is Dr. Zoila Rodriguez and her cultured marble products maker is Dr. Escobedo. Review of Systems Review of Systems Constitutional: Denies fever or chills. [] Eyes: Denies change in visual acuity, redness, or eye pain. [] HENT: Denies ear pain, nasal congestion or sore throat. [] Respiratory: Denies cough or shortness of breath. [] Cardiovascular: Denies chest pain, palpitations or edema. [] GI: Denies bloody stools. Reports diarrhea, nausea, vomiting, and lower abdominal pain. : Denies dysuria, hematuria or urinary frequency. [] Musculoskeletal: Denies back pain or joint pain. [] Integument: Denies rash or skin lesions. [] Neurologic: Denies headache, focal weakness or sensory changes. [] Endocrine: Denies polyuria or polydipsia. [] Psych: Denies anxiety or depression. [] All systems reviewed and negative unless otherwise stated in the HPI. Current Medications Current Medications Current Medications Medications (Trade) Dose Ordered Sig/Chantell Start Time Stop Time Status Last Admin Dose Admin Info (Do NOT chart on this entry -- for MONITORING) 1 each PRN DAILY PRN 12/26/16 08:45 12/26/16 11:03 DC Iohexol (Omnipaque 300 Mg/ml) 75 ml 1X ONCE 12/26/16 08:45 12/26/16 08:46 DC 12/26/16 08:45 75 ML Morphine Sulfate 4 mg 4 mg PRN Q15MIN PRN 12/26/16 08:15 12/26/16 11:03 DC 12/26/16 09:02 4 MG Ondansetron HCl (Zofran) 4 mg 1X ONCE 12/26/16 08:15 12/26/16 08:16 DC 12/26/16 09:00 4 MG Sodium Chloride (Iv Sodium Chloride 0.9% 1000ml Bag) 1,000 ml @ 1,000 mls/hr Q1H 12/26/16 08:02 12/26/16 09:01 DC 12/26/16 08:41 1,000 MLS/HR Allergies Allergies Allergies Coded Allergies Type Severity Reaction Last Updated Verified Penicillins Allergy Severe Rash 07/23/15 Yes Sulfa (Sulfonamide Antibiotics) Allergy Severe Rash 07/23/15 Yes benzocaine Allergy Severe SHORTNESS OF BREATH LOCAL ANESTHETICS 07/23/15 Yes sulfite Allergy Severe Rash 07/23/15 Yes thimerosal Allergy Severe Anaphylaxis 07/23/15 Yes yellow dye Allergy Severe Rash 07/23/15 Yes Iodine and Iodide Containing Produc Allergy Intermediate Hives--Premedication does not work per patient 10/26/15 Yes barium sulfate Allergy Intermediate rash 10/26/15 Yes monosodium glutamate Allergy Intermediate Rash 07/23/15 Yes nickel Allergy Intermediate SEE COMMENT 07/23/15 Yes NSAIDS (Non-Steroidal Anti-Inflamma Adverse Reaction Intermediate Nausea and Vomiting 07/23/15 Yes Physical Exam Physical Exam Constitutional: Well developed, well nourished, no acute distress, non-toxic appearance. [] HENT: Normocephalic, atraumatic, oropharynx moist. [] Eyes: PERRLA, EOMI, conjunctiva normal, no discharge. [] Neck: Normal range of motion, no tenderness, supple, no stridor. [] Cardiovascular: Heart rate regular rhythm, no murmur. [] Lungs & Thorax: Bilateral breath sounds clear to auscultation without wheezes, rales, or rhonchi. [] Abdomen: Bowel sounds normal, soft, diffuse lower abdominal tenderness, no masses, no pulsatile masses. J-tube in place in the left mid-abdomen. Skin: Warm, dry, no erythema, no rash. There is mild excoriation of the skin around the J-tube insertion without evidence of cellulitis or induration. There is no purulent drainage from the site. Back: No midline tenderness, no CVA tenderness. [] Extremities: No tenderness, ROM intact, no edema. Distal pulses equal bilaterally. [] Neurologic: Alert and oriented X 3, normal motor function, normal sensory function, no focal deficits noted. [] Psychologic: Affect normal, judgement normal, mood normal. [] Current Patient Data Vital Signs Vital Signs Date Time Temp Pulse Resp B/P Pulse Ox O2 Delivery O2 Flow Rate FiO2 12/26/16 10:30 54 13 94 Room Air 12/26/16 10:00 144/61 12/26/16 07:35 98.4 98.4 Lab Values Laboratory Tests Test 12/26/16 08:45 12/26/16 08:50 White Blood Count 4.9x10^3/uL (4.0-11.0) Red Blood Count 4.16x10^6/uL (3.50-5.40) Hemoglobin 12.1g/dL (12.0-15.5) Hematocrit 36.6% (36.0-47.0) Mean Corpuscular Volume 88fL (79-100) Mean Corpuscular Hemoglobin 29pg (25-35) Mean Corpuscular Hemoglobin Concent 33g/dL (31-37) Red Cell Distribution Width 14.6% (11.5-14.5) H Platelet Count 175x10^3/uL (140-400) Neutrophils (%) (Auto) 40% (31-73) Lymphocytes (%) (Auto) 39% (24-48) Monocytes (%) (Auto) 10% (0-9) H Eosinophils (%) (Auto) 10% (0-3) H Basophils (%) (Auto) 1% (0-3) Neutrophils # (Auto) 2.0x10^3uL (1.8-7.7) Lymphocytes # (Auto) 1.9x10^3/uL (1.0-4.8) Monocytes # (Auto) 0.5x10^3/uL (0.0-1.1) Eosinophils # (Auto) 0.5x10^3/uL (0.0-0.7) Basophils # (Auto) 0.0x10^3/uL (0.0-0.2) Sodium Level 143mmol/L (136-145) Potassium Level 4.3mmol/L (3.5-5.1) Chloride Level 104mmol/L (98-107) Carbon Dioxide Level 31mmol/L (21-32) Anion Gap 8 (6-14) Blood Urea Nitrogen 18mg/dL (7-20) Creatinine 0.8mg/dL (0.6-1.0) Estimated GFR (Cockcroft-Gault) 72.2 BUN/Creatinine Ratio 23 (6-20) H Glucose Level 99mg/dL (70-99) Calcium Level 9.3mg/dL (8.5-10.1) Total Bilirubin 0.3mg/dL (0.2-1.0) Aspartate Amino Transferase (AST) 20U/L (15-37) Alanine Aminotransferase (ALT) 23U/L (14-59) Alkaline Phosphatase 66U/L (46-116) Total Protein 7.5g/dL (6.4-8.2) Albumin 3.9g/dL (3.4-5.0) Albumin/Globulin Ratio 1.1 (1.0-1.7) Lipase 195U/L (73-393) Urine Collection Type Unknown Urine Color Yellow Urine Clarity Clear Urine pH 7.0 Urine Specific [place] 1.010 Urine Protein Negativemg/dL (NEG-TRACE) Urine Glucose (UA) Negativemg/dL (NEG) Urine Ketones (Stick) Negativemg/dL (NEG) Urine Blood Negative (NEG) Urine Nitrite Negative (NEG) Urine Bilirubin Negative (NEG) Urine Urobilinogen Dipstick 1.0mg/dL (0.2 mg/dL) Urine Leukocyte Esterase Trace (NEG) Urine RBC 0/HPF (0-2) Urine WBC 0/HPF (0-4) Urine Bacteria 0/HPF (0-FEW) Laboratory Tests 12/26/16 08:45 Laboratory Tests 12/26/16 08:45 EKG EKG [] Radiology/Procedures Radiology/Procedures REASON: diarrhea, recent abx, PT ALLERGIC TO IODINE CONTRAST PROCEDURE: CT ABDOMEN PELVIS WO CONTRAST CT scan of the abdomen and pelvis without contrast 12/26/2016 Clinical history: Right lower quadrant abdominal pain. Findings: Comparison study is dated 09/27/2016. Images through the lung bases demonstrate minimal dependent subsegmental atelectasis bilaterally. The liver, spleen, pancreas, adrenal glands and kidneys are within normal limits. Atherosclerotic calcification of the abdominal aorta is seen. The abdominal aorta tapers normally. Surgical clips are seen within the right upper quadrant abdomen consistent with a cholecystectomy. No free fluid or free air is seen within the abdomen. A jejunostomy tube is seen. Contrast is seen within the colon likely related to recent jejunostomy tube placement. The abdominal bowel gas pattern is nonobstructive. The appendix is not visualized. No inflammatory changes are seen surrounding the cecum. Images through the pelvis demonstrate the urinary bladder distended with urine. Calcifications are seen within the pelvis consistent with phleboliths. The patient appears to be status post hysterectomy. No adnexal mass is seen. No free fluid is noted. The osseous structures are unchanged. Impression: No acute abnormality is seen. Course & Med Decision Making Course & Med Decision Making Pertinent Labs and Imaging studies reviewed. (See chart for details) Patient is a 66 year female history of J-tube who presents with 3 days of diarrhea and lower abdominal pain. On exam, her abdomen is soft and nonsurgical with diffuse lower abdominal tenderness. Laboratory evaluation does not reveal any significant abnormalities. CT of the abdomen and pelvis does not show any evidence of colitis, diverticulitis, or other acute pathology. Her symptoms improved with IV fluids, morphine, and Zofran. Stool studies were ordered to evaluate for C. difficile, as she was on antibiotics within the last month. The patient was unable to produce a sample while in the emergency department. The patient is discharged home with prescription for Cipro, Flagyl, [place], and Zofran. She is instructed to follow-up with her GI doctor within the next 2-3 days. Return precautions were discussed. She verbalizes understanding and agrees with plan. Dragon Disclaimer Dragon Disclaimer This electronic medical record was generated, in whole or in part, using a voice recognition dictation system. Departure Departure Impression: Primary Impression: Diarrhea Additional Impression: Abdominal pain Disposition: 01 HOME, SELF-CARE Condition: IMPROVED Referrals: ZOILA RODRIGUEZ MD (PCP) VIJAY ESCOBEDO MD Patient Instructions: Abdominal Pain, [id number], Diarrhea, [id number] Additional Instructions: Your labs, urine, and CT scan did not show any concerning abnormalities. Please complete all of the prescribed antibiotics. This will cover for possible infectious diarrhea. Please take the prescribed pain medication as directed. Do not drive or operate heavy machinery while taking pain medication. Please follow-up with your GI doctor within the next 2-3 days if your symptoms continue, sooner if concerns. Return to the emergency department if you have severe pain, blood in the stool, fever, excessive vomiting, or other new or concerning symptoms. Scripts Ciprofloxacin Hcl (Cipro)500 Mg Tablet1 Tab PO BID #14 TAB Prov:CHRISTIANO JOHNSON 12/26/16 Metronidazole (Flagyl)500 Mg Tablet1 Tab PO BID #14 TAB Prov:CHRISTIANO JOHNSON 12/26/16 Ondansetron (Zofran Odt)4 Mg Tab.rapdis1 Tab SL Q8HRS #10 TAB Prov:CHRISTIANO JOHNSON 12/26/16 Hydrocodone/Apap 5-325 ([place] 5-325 Tablet)1 Each Tablet1 Tab PO PRN Q6HRS PRN PAIN #20 TAB Prov:CHRISTIANO JOHNSON 12/26/16 Problem Qualifiers Primary Impression: Diarrhea Diarrhea type: unspecified type Qualified Code: R19.7 - Diarrhea, unspecified Additional Impression: Abdominal pain Abdominal location: lower abdomen, unspecified Qualified Code: R10.30 - Lower abdominal pain, unspecified CHRISTIANO JOHNSON Dec 26, 2016 08:16
[2016-12-26] MEDS ORDERED: IOHEXOL 300 MG/ML 75 ML VIAL IV ONE (08:45)
[2016-12-26] MEDS ORDERED: CONTRAST GIVEN MC PRN (08:45)
[2016-12-26 09:00] LABS: BASO % 1 % (0-3); EOS % 10 % (0-3); HEMATOCRIT 36.6 % (36.0-47.0); HEMOGLOBIN 12.1 g/dL (12.0-15.5); LYMPH # 1.9 x10^3/uL (1.0-4.8); LYMPH % 39 % (24-48); MEAN CORPUSCULAR HEMOGLOBIN 29 pg (25-35); MEAN CORPUSCULAR HGB CONC 33 g/dL (31-37); MEAN CORPUSCULAR VOLUME 88 fL (79-100); MONO % 10 % (0-9); NEUT % 40 % (31-73); PLATELET COUNT 175 x10^3/uL (140-400); RED BLOOD COUNT 4.16 x10^6/uL (3.50-5.40); RED CELL DISTRIBUTION WIDTH 14.6 % (11.5-14.5); WHITE BLOOD COUNT 4.9 x10^3/uL (4.0-11.0)
[2016-12-26 09:02] LABS: CALCIUM 9.3 mg/dL (8.5-10.1); CREATININE 0.8 mg/dL (0.6-1.0); GFR 72.2; POTASSIUM 4.3 mmol/L (3.5-5.1)
[2016-12-26 09:02] LABS: BILIRUBIN,URINE NEGATIVE (NEG); GLUCOSE,URINE NEGATIVE (NEG); NITRITE,URINE NEGATIVE (NEG); PROTEIN,URINE NEGATIVE (NEG-TRACE)
[2016-12-26 09:08] LABS: ALBUMIN 3.9 g/dL (3.4-5.0); ALBUMIN/GLOBULIN RATIO 1.1 (1.0-1.7); TOTAL BILIRUBIN 0.3 mg/dL (0.2-1.0); TOTAL PROTEIN 7.5 g/dL (6.4-8.2)
[2016-12-26 09:12] LABS: BACTERIA,URINE 0 /HPF (0-FEW); RBC,URINE 0 /HPF (0-2); WBC,URINE 0 /HPF (0-4)
--- NOTE | 2016-12-26 09:53 | RAD ---
CT scan of the abdomen and pelvis without contrast 12/26/2016 Clinical history: Right lower quadrant abdominal pain. Technique: Unenhanced, contiguous, 5 mm axial sections were obtained through the abdomen and pelvis. One or more of the following individualized dose reduction techniques were utilized for this study: 1. Automated exposure control. 2. Adjustment of the mA and/or kV according to patient size. 3. Use of iterative reconstruction technique. Findings: Comparison study is dated 09/27/2016. Images through the lung bases demonstrate minimal dependent subsegmental atelectasis bilaterally. The liver, spleen, pancreas, adrenal glands and kidneys are within normal limits. Atherosclerotic calcification of the abdominal aorta is seen. The abdominal aorta tapers normally. Surgical clips are seen within the right upper quadrant abdomen consistent with a cholecystectomy. No free fluid or free air is seen within the abdomen. A jejunostomy tube is seen. Contrast is seen within the colon likely related to recent jejunostomy tube placement. The abdominal bowel gas pattern is nonobstructive. The appendix is not visualized. No inflammatory changes are seen surrounding the cecum. Images through the pelvis demonstrate the urinary bladder distended with urine. Calcifications are seen within the pelvis consistent with phleboliths. The patient appears to be status post hysterectomy. No adnexal mass is seen. No free fluid is noted. The osseous structures are unchanged. Impression: No acute abnormality is seen.
[2016-12-26 10:00] VITALS: BP 144/61
[2016-12-26] MEDS ORDERED: METR500T PO (10:30)
[2016-12-26] MEDS ORDERED: ONDA4TAB10 SL (10:30)
[2016-12-26] MEDS ORDERED: HYDR-971 PO (10:30)
[2016-12-26] MEDS ORDERED: CIPR500T94 PO (10:30)
== END 2016-12-26 11:03 | disposition home or self-care (01) ==
LOC: ER 07:30
DX: R19.7 Diarrhea, unspecified (principal); R10.31 Right lower quadrant pain; R11.2 Nausea with vomiting, unspecified; M19.90 Unspecified osteoarthritis, unspecified site; M79.7 Fibromyalgia; I10 Essential (primary) hypertension; E03.9 Hypothyroidism, unspecified; H40.9 Unspecified glaucoma; I25.2 Old myocardial infarction; K31.84 Gastroparesis; Z86.73 Personal history of transient ischemic attack (TIA), and cerebral infarction without residual deficits; Z90.49 Acquired absence of other specified parts of digestive tract; Z90.710 Acquired absence of both cervix and uterus; Z96.89 Presence of other specified functional implants; Z88.0 Allergy status to penicillin; Z88.2 Allergy status to sulfonamides; Z88.4 Allergy status to anesthetic agent; Z88.8 Allergy status to other drugs, medicaments and biological substances; Z91.048 Other nonmedicinal substance allergy status
CPT/HCPCS: 36415; 74176; 80053; 81001; 83690; 85027; 87086; 87186; 96361; 96374; 96375; 99285; J2270; J2405; J7030; Q9967

== ENCOUNTER 2017-04-03 07:12 | Outpatient (CLI) | payer MEDICARE ==
[~2017-04-03] VITALS: Ht 162.6 cm; Wt 53.1 kg
[~2017-04-03 07:12] MED LIST changes: -ASPI325T4 PO; +ASPI325T8 PO; -ESCI5TAB PEG; +ESCITALOPRAM OXA5 M1 PEG; +HYDR-971 PO; +MELA5TAB20 PO; -MELA5TAB4 PO; +METR500T PO; +ONDA4TAB10 SL; -SUCR1TAB29 PO; +SUCR1TAB35 PO
[2017-04-03 07:38] LABS: BASO # 0.1 x10^3/uL (0.0-0.2); BASO % 1 % (0-3); EOS % 4 % (0-3); HEMOGLOBIN 13.4 g/dL (12.0-15.5); LYMPH # 2.6 x10^3/uL (1.0-4.8); LYMPH % 47 % (24-48); MEAN CORPUSCULAR HEMOGLOBIN 31 pg (25-35); MEAN CORPUSCULAR HGB CONC 34 g/dL (31-37); MEAN CORPUSCULAR VOLUME 92 fL (79-100); MONO % 9 % (0-9); NEUT % 39 % (31-73); PLATELET COUNT 163 x10^3/uL (140-400); RED BLOOD COUNT 4.36 x10^6/uL (3.50-5.40); WHITE BLOOD COUNT 5.5 x10^3/uL (4.0-11.0)
[2017-04-03 08:02] LABS: INR 0.9 (0.8-1.1); PROTHROMBIN TIME PATIENT 11.8 SEC (11.7-14.0)
[2017-04-03] MEDS ORDERED: IOHEXOL 300 MG/ML 100ML VIAL. ONE (08:04)
[2017-04-03] MEDS ORDERED: LIDOCAINE 1% / SOD BICARB 8.4% 20 ML VIAL. IJ ONE ×2 (08:04→09:00)
[2017-04-03 08:08] VITALS: BP 140/80
[2017-04-03] MEDS ORDERED: diphenhydrAMINE 50 MG/ML VIAL ONE (08:18)
[2017-04-03] MEDS ORDERED: diphenhydrAMINE 50 MG/ML VIAL IVP ONE (08:20)
[2017-04-03] MEDS ORDERED: IOHEXOL 300 MG/ML 50 ML VIAL. ONE (08:23)
[2017-04-03] MEDS ORDERED: MIDAZOLAM HCL/PF 5 MG/5 ML VIAL. ONE (08:31)
[2017-04-03] MEDS ORDERED: fentaNYL PF VIAL 250 MCG/5 ML VIAL ONE (08:31)
[2017-04-03] MEDS ORDERED: MIDAZOLAM HCL/PF 5 MG/5 ML VIAL. IV ONE (09:00)
[2017-04-03] MEDS ORDERED: fentaNYL PF VIAL 250 MCG/5 ML VIAL IV ONE (09:00)
[2017-04-03] MEDS ORDERED: IOHEXOL 300 MG/ML 50 ML VIAL. IART ONE (09:00)
[2017-04-03] MEDS ORDERED: VITA400C36 PO (09:01)
[2017-04-03] MEDS ORDERED: CYAN10005 PO (09:01)
[2017-04-03] MEDS ORDERED: ASCO10002 PO (09:01)
[2017-04-03] MEDS ORDERED: DIPH25CA58 PO (09:01)
[2017-04-03] MEDS ORDERED: TRAM50TA PO (09:01)
[2017-04-03] MEDS ORDERED: biotin PO (09:01)
[2017-04-03] MEDS ORDERED: SUCR1TAB35 PO (09:01)
[2017-04-03 09:08] VITALS: BP 151/67
[2017-04-03 09:26] VITALS: BP 162/71
[2017-04-03 09:41] VITALS: BP 141/69
[2017-04-03 09:56] VITALS: BP 136/70
--- NOTE | 2017-04-03 13:56 | RAD ---
Per case placement of the jejunostomy tube 04/03/2017 Indication: 66-year-old female with history of left jejunostomy tube. 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 Discussion: The risks and benefits of the procedure including limited to bleeding infection were discussed patient. Informed consent was obtained. A sinus tract is seen in the left upper abdomen. Small amount of contrast was administered through this tract via an MPA catheter. Small bowel was delineated. The MPA catheter and a guidewire was advanced into the small bowel lumen. The tract was dilated with an 8 mm balloon. Subsequently an 18 Iraqi jejunostomy tube was advanced to the small bowel which was confirmed by the administration of a small amount of contrast. No immediate complications are identified. Sutures performed for conscious sedation including continuous cardiopulmonary monitoring via a dedicated sedation nurse. Sedation time: 30 minutes Fluoroscopy time 4.4 minutes Dose area product 3 Gycm2 Pression: Successful placement of a 18 Iraqi jejunostomy tube through pre-existing tract.
== END 2017-04-03 10:30 | disposition home or self-care (01) ==
LOC: INTRAD 07:12
PROVIDERS: ATTEND Surgery
DX: Z46.59 Encounter for fitting and adjustment of other gastrointestinal appliance and device (principal); Z79.01 Long term (current) use of anticoagulants; Z86.69 Personal history of other diseases of the nervous system and sense organs; Z86.73 Personal history of transient ischemic attack (TIA), and cerebral infarction without residual deficits; E78.00 Pure hypercholesterolemia, unspecified; Z95.0 Presence of cardiac pacemaker; I48.91 Unspecified atrial fibrillation; I10 Essential (primary) hypertension; M19.90 Unspecified osteoarthritis, unspecified site; E03.9 Hypothyroidism, unspecified; F41.9 Anxiety disorder, unspecified; F32.9 Major depressive disorder, single episode, unspecified; Z90.710 Acquired absence of both cervix and uterus; Z90.49 Acquired absence of other specified parts of digestive tract; Z83.3 Family history of diabetes mellitus; Z87.440 Personal history of urinary (tract) infections; Z86.39 Personal history of other endocrine, nutritional and metabolic disease; Z82.49 Family history of ischemic heart disease and other diseases of the circulatory system
CPT/HCPCS: 36415; 49451; 85027; 85610; 99152; 99153; C1725; C1769; C1887; J1200; J2250; J3010; Q9967

== ENCOUNTER 2017-04-11 10:44 | Emergency (ER) | payer MEDICARE ==
[~2017-04-11] VITALS: Ht 160 cm; Wt 54.0 kg
[~2017-04-11 10:44] MED LIST changes: +ASCO10002 PO; +TRAM50TA PO; +VITA400C36 PO; +biotin PO
[2017-04-11 11:00] VITALS: BP 188/91
--- NOTE | 2017-04-11 11:25 | ED.ADGEN ---
Past Medical History Past Medical History: Arthritis, Arrhythmia, Fibromyalgia, Glaucoma, Hypertension, Hypothyroid, [place], TIA, Other Additional Past Medical Histor: 2 bulging discs, tremors, ULCERS, gastroparesis Past Surgical History: Cholecystectomy, Hysterectomy, Pacemaker, Other Additional Past Surgical Histo: L breast bx, fibroma L posterior knee, cardiac cath X 4, J-tube Alcohol Use: None Drug Use: None Adult General Chief Complaint Chief Complaint: GTUBE REPLACEMENT/MALFUNCTION HPI HPI Patient is a 66 year old woman, with history of gastroparesis, for which she has a jejunostomy tube for drainage, hypertension, hypothyroidism, fibromyalgia , who presents emergency department after accidentally cutting her jejunostomy tube. Patient states that she was attempting to the dressing and placed on Thursday, states that there was a more complicated tube dressing than usual, and accidentally cut the tube close to the insertion point her abdomen. Patient states this occurred this morning, has been draining since that time. She denies any receding symptoms, any fevers, chills, chest pain, shortness breath or other complaints. States she does take by mouth intake, and the tube is there primarily for drainage and healing via irritation of the jejunum. Dr. Saxena is her surgeon, the J-tube was replaced last week by interventional radiology. Review of Systems Review of Systems Constitutional: Denies fever or chills. [] Eyes: Denies change in visual acuity. [] HENT: Denies nasal congestion or sore throat. [] Respiratory: Denies cough or shortness of breath. [] Cardiovascular: Denies chest pain or edema. [] GI: Denies abdominal pain, nausea, vomiting, bloody stools or diarrhea. [] : Denies dysuria. [] Musculoskeletal: Denies back pain or joint pain. [] Integument: Denies rash. [] Neurologic: Denies headache, focal weakness or sensory changes. [] Endocrine: Denies polyuria or polydipsia. [] Lymphatic: Denies swollen glands. [] Psychiatric: Denies depression or anxiety. [] No complaints, drainage from the cut end of the jejunostomy tube. Allergies Allergies Allergies Coded Allergies Type Severity Reaction Last Updated Verified Penicillins Allergy Severe Rash 07/23/15 Yes Sulfa (Sulfonamide Antibiotics) Allergy Severe Rash 07/23/15 Yes benzocaine Allergy Severe SHORTNESS OF BREATH LOCAL ANESTHETICS 07/23/15 Yes sulfite Allergy Severe Rash 07/23/15 Yes thimerosal Allergy Severe Anaphylaxis 07/23/15 Yes yellow dye Allergy Severe Rash 07/23/15 Yes Iodine and Iodide Containing Produc Allergy Intermediate Hives--Premedication does not work per patient 10/26/15 Yes barium sulfate Allergy Intermediate rash 10/26/15 Yes monosodium glutamate Allergy Intermediate Rash 07/23/15 Yes nickel Allergy Intermediate SEE COMMENT 07/23/15 Yes NSAIDS (Non-Steroidal Anti-Inflamma Adverse Reaction Intermediate Nausea and Vomiting 07/23/15 Yes Physical Exam Physical Exam Constitutional: Well developed, well nourished, no acute distress, non-toxic appearance. [] HENT: Normocephalic, atraumatic, bilateral external ears normal, oropharynx moist, no oral exudates, nose normal. [] Eyes: PERRLA, EOMI, conjunctiva normal, no discharge. [] Neck: Normal range of motion, no tenderness, supple, no stridor. [] Cardiovascular:Heart rate regular rhythm, no murmur, S1, S2, rubs or gallops. [] Lungs & Thorax: Bilateral breath sounds clear to auscultation, no wheezing, rhonchi, rales. No chest wall crepitus or tenderness. [] Abdomen: Bowel sounds normal, soft, no tenderness, no masses, no pulsatile masses. Patient with jejunostomy in place, noted to be cut shortly past the insertion site, noted to have yellow material into, no active drainage at this time. Site is clean dry and intact. Patient with healing G-tube site above, which also appears to be intact. Skin: Warm, dry, no erythema, no rash. [] Back: No tenderness, no CVA tenderness. [] Extremities: No tenderness, no cyanosis, no clubbing, ROM intact, no edema. [] Neurologic: Alert and oriented X 3, normal motor function, normal sensory function, no focal deficits noted. [] Psychologic: Affect normal, judgement normal, mood normal. [] Current Patient Data Vital Signs Vital Signs Date Time Temp Pulse Resp B/P (MAP) Pulse Ox O2 Delivery O2 Flow Rate FiO2 04/11/17 11:00 97.9 72 24 188/91 (123) Room Air 97.9 EKG EKG Not indicated. [] Radiology/Procedures Radiology/Procedures Not indicated. [] Course & Med Decision Making Course & Med Decision Making Pertinent Labs and Imaging studies reviewed. (See chart for details) Above discussed with Dr. Saxena, the patient's surgeon. At this time he recommends either clamping the tube, or with any tube in the ED and have the patient follow-up with him in the office. I did discuss this with patient. Due to her previous difficulties and complications, she opted to have the tube clamped in the ED, with a plan to follow-up with Dr. Saxean on Thursday for additional assessment. Importance of keeping the tube clamps to prevent the tube from sliding into the intestinal tract discussed with patient in detail, she voiced understanding and agreement. Mariela clamps were applied with good effect, area was secured with dressing and take. Patient discharged home in stable condition with plan as above, along with clear return precautions and instructions. Dragon Disclaimer Dragon Disclaimer This electronic medical record was generated, in whole or in part, using a voice recognition dictation system. Departure Impression: Primary Impression: Jejunostomy malfunction Disposition: 01 HOME, SELF-CARE Condition: STABLE CHRISTIANO STRANGE DO Apr 11, 2017 11:25
== END 2017-04-11 12:08 | disposition home or self-care (01) ==
LOC: ER 10:44
DX: K94.13 Enterostomy malfunction (principal); E03.9 Hypothyroidism, unspecified; I10 Essential (primary) hypertension; Z86.73 Personal history of transient ischemic attack (TIA), and cerebral infarction without residual deficits; M79.7 Fibromyalgia; M19.90 Unspecified osteoarthritis, unspecified site; Z90.710 Acquired absence of both cervix and uterus; Z90.49 Acquired absence of other specified parts of digestive tract; Z95.0 Presence of cardiac pacemaker; Z98.890 Other specified postprocedural states; Z88.0 Allergy status to penicillin; Z88.2 Allergy status to sulfonamides; Z88.6 Allergy status to analgesic agent; Z91.041 Radiographic dye allergy status; Z88.8 Allergy status to other drugs, medicaments and biological substances; Y83.8 Other surgical procedures as the cause of abnormal reaction of the patient, or of later complication, without mention of misadventure at the time of the procedure; Y92.89 Other specified places as the place of occurrence of the external cause
CPT/HCPCS: 99284

== ENCOUNTER 2017-04-11 19:11 | Emergency (ER) | payer MEDICARE ==
[~2017-04-11] VITALS: Ht 160 cm; Wt 54.0 kg
[2017-04-11] MEDS ORDERED: LIDOCAINE 2% JELLY 6ML IN APPLICATOR. MM ONE (20:00)
[2017-04-11] MEDS ORDERED: LANSOPRAZOLE 30 MG TAB.RAP.DR FT ONE (20:30)
[2017-04-11] MEDS ORDERED: NYSTATIN/TRIAMCIN TOPICAL CREAM 15GM TUBE. TP ONE (20:30)
[2017-04-11] MEDS ORDERED: ZINC OXIDE 20% TOPICAL OINTMENT 28GM TUBE. TP ONE (20:30)
[2017-04-11 20:51] VITALS: BP 162/98
--- NOTE | 2017-04-11 23:03 | ED.ADGEN ---
Past Medical History Past Medical History: Arthritis, Arrhythmia, Fibromyalgia, Glaucoma, Hypertension, Hypothyroid, [place], TIA, Other Additional Past Medical Histor: 2 bulging discs, tremors, ULCERS, gastroparesis Past Surgical History: Cholecystectomy, Hysterectomy, Pacemaker, Other Additional Past Surgical Histo: L breast bx, fibroma L posterior knee, cardiac cath X 4, J-tube Alcohol Use: None Drug Use: None Adult General Chief Complaint Chief Complaint: GTUBE REPLACEMENT/MALFUNCTION HPI HPI Patient is a 66 year old woman, history of CAD, status post MA, hypothyroidism , fibromyalgia, gastroparesis, with history of G-tube which is now removed, and a J-tube in place for drainage inherent in of a fistula. Patient presents to the emergency department with a complaint of persistent leaking from her J-tube site. Patient was seen in the emergency department earlier this morning after accidentally cutting off the end of her J-tube, at that time she is evaluated, the tube and was clamped and she was instructed to follow-up with her [facility] surgeon, Dr. Saxena for additional evaluation. Patient states that she's had persistent leakage from the site, no the balloon is down, and that she is expressing increasing skin irritation at the site. Denies any other symptoms or complaints. Review of Systems Review of Systems Constitutional: Denies fever or chills. [] Eyes: Denies change in visual acuity. [] HENT: Denies nasal congestion or sore throat. [] Respiratory: Denies cough or shortness of breath. [] Cardiovascular: Denies chest pain or edema. [] GI: Denies abdominal pain, nausea, vomiting, bloody stools or diarrhea. [] : Denies dysuria. [] Musculoskeletal: Denies back pain or joint pain. [] Integument: Denies rash. [] Soreness and irritation at the J-tube site secondary to leakage of contents. Neurologic: Denies headache, focal weakness or sensory changes. [] Endocrine: Denies polyuria or polydipsia. [] Lymphatic: Denies swollen glands. [] Psychiatric: Denies depression or anxiety. [] Current Medications Current Medications Current Medications Medications (Trade) Dose Ordered Sig/Chantell Start Time Stop Time Status Last Admin Dose Admin Lansoprazole (Prevacid) 30 mg 1X ONCE 04/11/17 20:30 04/11/17 20:31 DC 04/11/17 20:13 30 MG Lidocaine HCl (Glydo (Lidocaine) Jelly) 1 donya 1X ONCE 04/11/17 20:00 04/11/17 20:01 DC 04/11/17 20:12 1 DONYA Nystatin/ Triamcinolone Acetonide (Mycolog Ii) 1 donya 1X ONCE 04/11/17 20:30 04/11/17 20:31 DC 04/11/17 20:13 1 DONYA Zinc Oxide 1 donya 1X ONCE 04/11/17 20:30 04/11/17 20:31 DC 04/11/17 20:13 1 DONYA Allergies Allergies Allergies Coded Allergies Type Severity Reaction Last Updated Verified Penicillins Allergy Severe Rash 07/23/15 Yes Sulfa (Sulfonamide Antibiotics) Allergy Severe Rash 07/23/15 Yes benzocaine Allergy Severe SHORTNESS OF BREATH LOCAL ANESTHETICS 07/23/15 Yes sulfite Allergy Severe Rash 07/23/15 Yes thimerosal Allergy Severe Anaphylaxis 07/23/15 Yes yellow dye Allergy Severe Rash 07/23/15 Yes Iodine and Iodide Containing Produc Allergy Intermediate Hives--Premedication does not work per patient 10/26/15 Yes barium sulfate Allergy Intermediate rash 10/26/15 Yes monosodium glutamate Allergy Intermediate Rash 07/23/15 Yes nickel Allergy Intermediate SEE COMMENT 07/23/15 Yes NSAIDS (Non-Steroidal Anti-Inflamma Adverse Reaction Intermediate Nausea and Vomiting 07/23/15 Yes Physical Exam Physical Exam Constitutional: Well developed, well nourished, no acute distress, non-toxic appearance. [] HENT: Normocephalic, atraumatic, bilateral external ears normal, oropharynx moist, no oral exudates, nose normal. [] Eyes: PERRLA, EOMI, conjunctiva normal, no discharge. [] Neck: Normal range of motion, no tenderness, supple, no stridor. [] Cardiovascular:Heart rate regular rhythm, no murmur, S1, S2, rubs or gallops. [] Lungs & Thorax: Bilateral breath sounds clear to auscultation, no wheezing, rhonchi, rales. No chest or crepitus or tenderness. [] Abdomen: Bowel sounds normal, soft, no tenderness, no masses, no pulsatile masses. [Patient with well-healed G-tube site with mild irritation which is chronic, patient with J-tube site with J-tube in place, with Jo Ann clamps over the short in and of the tube, patient noted to have irritation that is localized around the stoma, with a small amount of yellow drainage. No evidence of induration or abscess formation,no skin breakdown. Skin: Warm, dry, no erythema, no rash. [] Back: No tenderness, no CVA tenderness. [] Extremities: No tenderness, no cyanosis, no clubbing, ROM intact, no edema. [] Neurologic: Alert and oriented X 3, normal motor function, normal sensory function, no focal deficits noted. [] Psychologic: Affect normal, judgement normal, mood normal. [] Current Patient Data Vital Signs Vital Signs Date Time Temp Pulse Resp B/P (MAP) Pulse Ox O2 Delivery O2 Flow Rate FiO2 04/11/17 20:51 60 18 162/98 (119) 98 Room Air 04/11/17 19:27 98.0 98.0 EKG EKG Not indicated. [] Radiology/Procedures Radiology/Procedures Not indicated. [] Course & Med Decision Making Course & Med Decision Making Pertinent Labs and Imaging studies reviewed. (See chart for details) I did initially discuss with patient on her previous evaluation that we could potentially remove the G-tube, however I stated to the patient that the leakage issue will not be resolved by removal, to potentially be worsened. Patient states understanding, does not wish for the J-tube removed at this time, she is not having any pain involved with the J-tube, aside from the localized skin irritation. Patient states that she has used antifungals and topical medications such as zinc oxide previously, but is currently staying with her daughter and does not have these medications with her. A slurry of zinc oxide, 2 % lidocaine gel, nystatin, and a dissolving Prevacid tablet was prepared in the emergency department, and a thin layer was applied to the affected area surrounding the G-tube site, with good effect. Sterile dressing was then applied over this area, with stabilization of the Jo Ann clamp and residual end of the J-tube. Patient states that she is feeling better after the application of this dressing and topical solution. Patient was given a container with a residual solution which she can apply as needed after dressing changes, as leakage will continue to occur, to help prevent worsening skin breakdown and to treat irritation. We did discuss concerning symptoms that prompt return to the emergency department, patient voices understanding and agreement, plan at this time to follow-up with her surgeon as directed, and return to the ED for any concerning symptoms as discussed. Dragon Disclaimer Dragon Disclaimer This electronic medical record was generated, in whole or in part, using a voice recognition dictation system. Departure Departure Impression: Primary Impression: Jejunostomy malfunction Additional Impression: Skin irritation Disposition: HOME, SELF-CARE Condition: IMPROVED Problem Qualifiers CHRISTIANO STRANGE DO Apr 11, 2017 23:03
== END 2017-04-11 21:27 | disposition home or self-care (01) ==
LOC: ER 19:11
DX: K94.13 Enterostomy malfunction (principal); E03.9 Hypothyroidism, unspecified; I10 Essential (primary) hypertension; I25.2 Old myocardial infarction; M79.7 Fibromyalgia; Z93.1 Gastrostomy status; Z95.0 Presence of cardiac pacemaker; Z90.710 Acquired absence of both cervix and uterus; Z90.49 Acquired absence of other specified parts of digestive tract; I25.10 Atherosclerotic heart disease of native coronary artery without angina pectoris; Z86.73 Personal history of transient ischemic attack (TIA), and cerebral infarction without residual deficits; Z98.890 Other specified postprocedural states; Z88.0 Allergy status to penicillin; Z88.2 Allergy status to sulfonamides; Z88.8 Allergy status to other drugs, medicaments and biological substances; Z88.6 Allergy status to analgesic agent; Z88.4 Allergy status to anesthetic agent; Z91.041 Radiographic dye allergy status; Y83.8 Other surgical procedures as the cause of abnormal reaction of the patient, or of later complication, without mention of misadventure at the time of the procedure; Y92.89 Other specified places as the place of occurrence of the external cause
CPT/HCPCS: 99284

== ENCOUNTER 2017-05-02 17:12 | Emergency (ER) | payer MEDICARE ==
[2017-05-02 17:20] VITALS: BP 196/90
[2017-05-02] MEDS ORDERED: HYDR-971 PO (18:04)
--- NOTE | 2017-05-02 18:04 | PHYS DOC ---
Past Medical History Past Medical History: Arthritis, Arrhythmia, Fibromyalgia, Glaucoma, Hypertension, Hypothyroid, [place], TIA, Other Additional Past Medical Histor: 2 bulging discs, tremors, ULCERS, gastroparesis Past Surgical History: Cholecystectomy, Hysterectomy, Pacemaker, Other Additional Past Surgical Histo: L breast bx, fibroma L posterior knee, cardiac cath X 4, J-tube Alcohol Use: None Drug Use: None Adult General Chief Complaint Chief Complaint: OTHER COMPLAINTS HPI HPI Patient is a 66 year old female presenting to the [facility] department for evaluation of leakage around her J-tube site. She says that she was picking tomatoes and pickling them and the drainage has increased since that time. Patient says it duong around her site and she is tired of the drainage coming out. She denies any abdominal pain fevers chills nausea vomiting rather she just has pain at the skin. She is scheduled to go to interventional radiology on Thursday to have the J-tube replaced which she is very anxious and like to have it done today of possible as she is taking a long road trip tomorrow. Review of Systems Review of Systems Constitutional: Denies fever or chills [] Cardiovascular: No additional information not addressed in HPI [] GI: Denies abdominal pain, nausea, vomiting, bloody stools or diarrhea [] Integument: + Skin irritation around stoma site Allergies Allergies Allergies Coded Allergies Type Severity Reaction Last Updated Verified Penicillins Allergy Severe Rash 07/23/15 Yes Sulfa (Sulfonamide Antibiotics) Allergy Severe Rash 07/23/15 Yes benzocaine Allergy Severe SHORTNESS OF BREATH LOCAL ANESTHETICS 07/23/15 Yes sulfite Allergy Severe Rash 07/23/15 Yes thimerosal Allergy Severe Anaphylaxis 07/23/15 Yes yellow dye Allergy Severe Rash 07/23/15 Yes Iodine and Iodide Containing Produc Allergy Intermediate Hives--Premedication does not work per patient 10/26/15 Yes barium sulfate Allergy Intermediate rash 10/26/15 Yes monosodium glutamate Allergy Intermediate Rash 07/23/15 Yes nickel Allergy Intermediate SEE COMMENT 07/23/15 Yes NSAIDS (Non-Steroidal Anti-Inflamma Adverse Reaction Intermediate Nausea and Vomiting 07/23/15 Yes Physical Exam Physical Exam Constitutional: Well developed, well nourished, no acute distress, non-toxic appearance. [] Cardiovascular:Heart rate regular rhythm, no murmur [] Lungs & Thorax: Bilateral breath sounds clear to auscultation [] Abdomen: Bowel sounds normal, soft, no tenderness, no masses, no pulsatile masses. [] Skin: Around J-tube site there is skin irritation but no cellulitis warmth or purulent drainage. If I push on it clear yellowish fluid can be expressed. Current Patient Data Vital Signs Vital Signs Date Time Temp Pulse Resp B/P (MAP) Pulse Ox O2 Delivery O2 Flow Rate FiO2 05/02/17 17:20 98.7 84 16 196/90 (125) 98 Room Air 98.7 EKG EKG [] Radiology/Procedures Radiology/Procedures [] Course & Med Decision Making Course & Med Decision Making I spoke to Dr. Wade who is on-call for interventional radiology and he said there is no indication to emergently changed her J-tube site but said she could call Thursday morning to try and get a sooner follow-up appointment but to take it easy for now. Patient says that she is not like the pain and is asking for pain medication so I will give her [place] for pain to go home with but told her to take a stool softener with it. Patient aware and agreeable with plan for discharge and verbalized understanding of the need for short-term follow-up in the strict ER return precautions discussed worsening pain fevers vomiting or other general concerns. Dragon Disclaimer Dragon Disclaimer This electronic medical record was generated, in whole or in part, using a voice recognition dictation system. Departure Departure Impression: Primary Impression: Jejunostomy malfunction Additional Impression: Skin irritation Disposition: 01 HOME, SELF-CARE Condition: GOOD Referrals: LUCIANA RODRIGUEZ MD (PCP) Patient Instructions: Care of a Feeding Tube Site Scripts Hydrocodone/Apap 5-325 (NORCO 5-325 TABLET) 1 Each Tablet 1 TAB PO PRN Q6HRS Y for PAIN, #20 TAB 0 Refills Prov: JOAO PATRICK DO 05/02/17 Problem Qualifiers JOAO PATRICK DO May 02, 2017 18:04
== END 2017-05-02 19:05 | disposition home or self-care (01) ==
LOC: ER 17:12
DX: K94.13 Enterostomy malfunction (principal); Z88.0 Allergy status to penicillin; Z88.2 Allergy status to sulfonamides; Z91.041 Radiographic dye allergy status; Z88.6 Allergy status to analgesic agent; Z88.4 Allergy status to anesthetic agent; E03.9 Hypothyroidism, unspecified; I10 Essential (primary) hypertension; M79.7 Fibromyalgia; Z86.73 Personal history of transient ischemic attack (TIA), and cerebral infarction without residual deficits; Z95.0 Presence of cardiac pacemaker; M19.90 Unspecified osteoarthritis, unspecified site; Z90.49 Acquired absence of other specified parts of digestive tract; Z90.710 Acquired absence of both cervix and uterus; Z98.890 Other specified postprocedural states; Y83.8 Other surgical procedures as the cause of abnormal reaction of the patient, or of later complication, without mention of misadventure at the time of the procedure; Y92.89 Other specified places as the place of occurrence of the external cause
CPT/HCPCS: 99283

== ENCOUNTER 2017-05-04 09:32 | Outpatient (CLI) | payer MEDICARE ==
[~2017-05-04] VITALS: Ht 161.3 cm; Wt 54.0 kg
[2017-05-04 10:16] VITALS: BP 155/101
[2017-05-04] MEDS ORDERED: LIDOCAINE 1% / SOD BICARB 8.4% 20 ML VIAL. IJ ONE ×2 (10:47→11:15)
[2017-05-04] MEDS ORDERED: fentaNYL PF VIAL 100 MCG/2 ML VIAL ONE (10:49)
[2017-05-04] MEDS ORDERED: MIDAZOLAM HCL/PF 2 MG/2 ML VIAL. ONE (10:49)
[2017-05-04] MEDS ORDERED: fentaNYL PF VIAL 100 MCG/2 ML VIAL IV ONE (11:15)
[2017-05-04] MEDS ORDERED: MIDAZOLAM HCL/PF 2 MG/2 ML VIAL. IV ONE (11:15)
[2017-05-04 11:30] VITALS: BP 120/60
[2017-05-04 11:45] VITALS: BP 116/67
[2017-05-04 12:00] VITALS: BP 139/103
[2017-05-04 12:15] VITALS: BP 158/99
--- NOTE | 2017-05-04 13:26 | RAD ---
Procedure: Fluoroscopic guided gastrostomy tube exchange and fluoroscopic guided jejunostomy tube exchange. Clinical Indication: 66-year-old with chronic indwelling percutaneous jejunostomy tube, requiring exchange. Sedation: Conscious sedation was administered for16 minutes. The patient was monitored by a qualified independent observer throughout the time of sedation. Please refer to the medical record for exact doses of medications utilized to achieve moderate sedation. Antibiotics: None Exposure: Fluoro Time: 3.8 min exposures:: 2 Contrast: Air contrast was utilized Sterility: All elements of maximal sterile barrier technique including the use of a cap, mask, sterile gown, sterile gloves, large sterile sheet, appropriate hand hygiene, and 2% chlorhexidine for cutaneous antisepsis (or acceptable alternative antiseptic per current guidelines) were followed for this procedure. Consent: The procedure was explained in its entirety to the patient or the patients designated corporate sales representative by a member of the treatment team, including a discussion of the risks, benefits and commonly accepted alternatives to the procedure, as well as the expected consequences of no therapy whatsoever. Discussion of the risks included, but was not limited to, those that are most frequent and those that are rare but possibly severe or life-threatening, as well as the possibility of unforeseen complications. Technique and Findings: Following informed consent, the patient was prepped and draped in usual sterile fashion. The balloon on the jejunostomy tube was deflated. The entirety of the tube was then removed over a stiff wire, and a new 20 Serbian jejunal tube was advanced over the wire and positioned deep within the jejunum. The balloon was inflated and the tube was pulled taut against the abdominal wall. Air was then injected confirming good position within the jejunum. Complications: No immediate Impression: Fluoroscopic guided exchange of a percutaneous jejunostomy tube as described.
== END 2017-05-04 12:15 | disposition home or self-care (01) ==
LOC: INTRAD 09:32
PROVIDERS: ATTEND Surgery
DX: K94.13 Enterostomy malfunction (principal); Y84.8 Other medical procedures as the cause of abnormal reaction of the patient, or of later complication, without mention of misadventure at the time of the procedure; E78.00 Pure hypercholesterolemia, unspecified; I48.91 Unspecified atrial fibrillation; I10 Essential (primary) hypertension; E03.9 Hypothyroidism, unspecified; F41.9 Anxiety disorder, unspecified; F32.9 Major depressive disorder, single episode, unspecified; Z90.710 Acquired absence of both cervix and uterus; Z86.69 Personal history of other diseases of the nervous system and sense organs; Z87.39 Personal history of other diseases of the musculoskeletal system and connective tissue; Z86.73 Personal history of transient ischemic attack (TIA), and cerebral infarction without residual deficits; Z90.49 Acquired absence of other specified parts of digestive tract; Z86.39 Personal history of other endocrine, nutritional and metabolic disease; Z87.440 Personal history of urinary (tract) infections; Z88.0 Allergy status to penicillin; Z88.2 Allergy status to sulfonamides; Z91.041 Radiographic dye allergy status
CPT/HCPCS: 49451; 99152; C1769; J1644; J2250; J3010

== ENCOUNTER 2017-05-11 14:26 | Emergency (ER) | payer MEDICARE ==
[2017-05-11 14:35] VITALS: BP 174/80
--- NOTE | 2017-05-11 15:32 | PHYS DOC ---
Past Medical History Past Medical History: Arthritis, Arrhythmia, Fibromyalgia, Glaucoma, Hypertension, Hypothyroid, ME, TIA, Other Additional Past Medical Histor: 2 bulging discs, tremors, ULCERS, gastroparesis Past Surgical History: Cholecystectomy, Hysterectomy, Pacemaker, Other Additional Past Surgical Histo: L breast bx, fibroma L posterior knee, cardiac cath X 4, J-tube Alcohol Use: None Drug Use: None Adult General Chief Complaint Chief Complaint: j-tube leaking HPI HPI Patient is a 66 year old female who presents with leaking from her J-tube. This has been a chronic problem since the j-tube was placed several months ago. The tube has since been moved and replaced and pt continues to have problems. She came today because she feels the leaking has increased. She was supposed to schedule follow-up with Dr. Luo on outpt basis. Pt is not relying on the j-tube for nutrition. It was placed due to gastroparesis. Review of Systems Review of Systems Constitutional: Denies fever or chills [] Eyes: Denies change in visual acuity, redness, or eye pain [] HENT: Denies nasal congestion or sore throat [] Respiratory: Denies cough or shortness of breath [] Cardiovascular:denies chest pain GI: per hpi : Denies dysuria or hematuria [] Musculoskeletal: Denies back pain or joint pain [] Integument: Denies rash or skin lesions [] Neurologic: Denies headache, focal weakness or sensory changes [] Endocrine: Denies polyuria or polydipsia [] Allergies Allergies Allergies Coded Allergies Type Severity Reaction Last Updated Verified Penicillins Allergy Severe Rash 07/23/15 Yes Sulfa (Sulfonamide Antibiotics) Allergy Severe Rash 07/23/15 Yes benzocaine Allergy Severe SHORTNESS OF BREATH LOCAL ANESTHETICS 07/23/15 Yes sulfite Allergy Severe Rash 07/23/15 Yes thimerosal Allergy Severe Anaphylaxis 07/23/15 Yes yellow dye Allergy Severe Rash 07/23/15 Yes Iodine and Iodide Containing Produc Allergy Intermediate Hives--Premedication does not work per patient 10/26/15 Yes barium sulfate Allergy Intermediate rash 10/26/15 Yes monosodium glutamate Allergy Intermediate Rash 07/23/15 Yes nickel Allergy Intermediate SEE COMMENT 07/23/15 Yes NSAIDS (Non-Steroidal Anti-Inflamma Adverse Reaction Intermediate Nausea and Vomiting 07/23/15 Yes Physical Exam Physical Exam Constitutional: Well developed, well nourished, no acute distress, non-toxic appearance. [] HENT: Normocephalic, atraumatic, bilateral external ears normal, oropharynx moist, no oral exudates, nose normal. [] Eyes: PERRLA, EOMI, conjunctiva normal, no discharge. [] Neck: Normal range of motion, no tenderness, supple, no stridor. [] Cardiovascular:Heart rate regular with regular rhythm, no murmur [] Lungs & Thorax: Bilateral breath sounds clear to auscultation, no wheeze or crackles Abdomen: Bowel sounds normal, soft, no tenderness, mild ttp of the skin around J - tube, trace leaking around the tube, abdomen nondistended. Skin: Warm, dry, no erythema, no rash. [] Back: No tenderness, no CVA tenderness. [] Extremities: No tenderness, no cyanosis, no clubbing, ROM intact, no edema. [] Neurologic: Alert and oriented X 3, normal motor function, normal sensory function, no focal deficits noted. [] Psychologic: Affect normal, judgement normal, mood normal. [] Current Patient Data Vital Signs Vital Signs Date Time Temp Pulse Resp B/P (MAP) Pulse Ox O2 Delivery O2 Flow Rate FiO2 05/11/17 14:35 98.2 95 16 174/80 (111) 93 Room Air 98.2 EKG EKG [] Radiology/Procedures Radiology/Procedures [] Course & Med Decision Making Course & Med Decision Making Pertinent Labs and Imaging studies reviewed. (See chart for details) contacted Dr. Luo who recommends pt f/u in clinic for further treatment of j- tube. Explained this to the pt. Ashley Disclaimer Ashley Disclaimer This electronic medical record was generated, in whole or in part, using a voice recognition dictation system. Departure Departure Impression: Primary Impression: Jejunostomy malfunction Disposition: 01 HOME, SELF-CARE Condition: STABLE Referrals: LUCIANA RODRIGUEZ MD (PCP) Patient Instructions: Care of a Feeding Tube Site SHELDON LEWIS MD May 11, 2017 15:32
== END 2017-05-11 15:07 | disposition home or self-care (01) ==
LOC: ER 14:26
DX: K94.13 Enterostomy malfunction (principal); E03.9 Hypothyroidism, unspecified; I10 Essential (primary) hypertension; M79.7 Fibromyalgia; K31.84 Gastroparesis; Z86.73 Personal history of transient ischemic attack (TIA), and cerebral infarction without residual deficits; I25.2 Old myocardial infarction; M19.90 Unspecified osteoarthritis, unspecified site; Z95.0 Presence of cardiac pacemaker; Z90.49 Acquired absence of other specified parts of digestive tract; Z90.710 Acquired absence of both cervix and uterus; Z88.0 Allergy status to penicillin; Z88.2 Allergy status to sulfonamides; Z91.041 Radiographic dye allergy status; Z88.8 Allergy status to other drugs, medicaments and biological substances; Y83.8 Other surgical procedures as the cause of abnormal reaction of the patient, or of later complication, without mention of misadventure at the time of the procedure; Y92.89 Other specified places as the place of occurrence of the external cause
CPT/HCPCS: 99281

== ENCOUNTER → 2017-06-23 | Outpatient (CLI) | payer MEDICARE ==
--- NOTE | 2017-06-23 13:35 | RAD ---
DATE: 06/23/17 EXAM: DIGITAL DIAGNOSTIC BILATERAL, BREAST BILATERAL HISTORY: Bilateral breast pain COMPARISON: Bilateral mammogram from 03/19/16 This study was interpreted with the benefit of Computerized Aided Detection (CAD). TECHNIQUE: CC and MLO views of both breasts are obtained. Sonographic evaluation of bilateral breasts were obtained. FINDINGS: Mammogram: Breast Density: SCATTERED The breast parenchyma shows scattered fibroglandular densities. Breast parenchyma level B. . No suspicious clustered microcalcifications, focal asymmetric densities or masses are seen. Skin and nipples are intact. Catheter benign calcifications are present in breasts Bilateral breast Ultrasound: Sonographic evaluation of bilateral breasts is performed and images are obtained. Normal fibroglandular densities are seen. No solid or cystic mass lesions are identified. Occasional dilated ducts are seen IMPRESSION: Benign findings. Patient may be followed up clinically for symptoms of breast pain BI-RADS CATEGORY: 2 BENIGN FINDING(S) RECOMMENDED FOLLOW-UP: 12M 12 MONTH FOLLOW-UP. Clinical follow-up for symptoms of breast pain. PQRS compliance statement: Patient information was entered into a reminder system with a target due date for the next mammogram. Mammography is a sensitive method for finding small breast cancers, but it does not detect them all and is not a substitute for careful clinical examination. A negative mammogram does not negate a clinically suspicious finding and should not result in delay in biopsying a clinically suspicious abnormality. "Our facility is accredited by the [employer] Mammography Program."
== END | disposition home or self-care (01) ==
LOC: MAMMO 12:41
PROVIDERS: ATTEND Obstetrics & Gynecology
DX: N64.4 Mastodynia (principal)
CPT/HCPCS: 76641; G0204; 77066

== ENCOUNTER → 2017-10-14 | Outpatient (CLI) | payer MEDICARE | END | disposition home or self-care (01) | LOC: SPEC 13:07 | DX: L89.90 Pressure ulcer of unspecified site, unspecified stage (principal) | CPT/HCPCS: 88305 ==

== ENCOUNTER 2017-12-22 14:17 | Inpatient (IN) | payer MEDICARE ==
[2017-12-22 14:56] LABS: ADD MAN DIFF? NO
[2017-12-22 15:02] LABS: BASO % 1 % (0-3); EOS # 0.3 x10^3/uL (0.0-0.7); EOS % 4 % (0-3); HEMATOCRIT 42.1 % (36.0-47.0); HEMOGLOBIN 14.1 g/dL (12.0-15.5); LYMPH # 2.4 x10^3/uL (1.0-4.8); LYMPH % 33 % (24-48); MEAN CORPUSCULAR HEMOGLOBIN 30 pg (25-35); MEAN CORPUSCULAR HGB CONC 34 g/dL (31-37); MEAN CORPUSCULAR VOLUME 91 fL (79-100); MONO # 0.5 x10^3/uL (0.0-1.1); MONO % 8 % (0-9); NEUT % 56 % (31-73); PLATELET COUNT 199 x10^3/uL (140-400); RED BLOOD COUNT 4.65 x10^6/uL (3.50-5.40); RED CELL DISTRIBUTION WIDTH 13.5 % (11.5-14.5); WHITE BLOOD COUNT 7.2 x10^3/uL (4.0-11.0)
[2017-12-22 15:13] LABS: ANION GAP 10 (6-14); BLOOD UREA NITROGEN 10 mg/dL (7-20); BUN/CREATININE RATIO 11 (6-20); CALCIUM 9.8 mg/dL (8.5-10.1); CARBON DIOXIDE 29 mmol/L (21-32); CHLORIDE 102 mmol/L (98-107); CREATININE 0.9 mg/dL (0.6-1.0); GFR 62.8; GLUCOSE 104 mg/dL (70-99); POTASSIUM 3.6 mmol/L (3.5-5.1); SODIUM 141 mmol/L (136-145)
[2017-12-22] MEDS: ASPIRIN CHEWABLE 81 MG TABLET. PO (15:15)
[2017-12-22 15:19] LABS: ALK PHOS 61 U/L (46-116); ALT (SGPT) 29 U/L (14-59); AST (SGOT) 24 U/L (15-37); TOTAL BILIRUBIN 0.4 mg/dL (0.2-1.0); TOTAL PROTEIN 8.1 g/dL (6.4-8.2)
[2017-12-22 15:24] LABS: TROPONINI < 0.017 ng/mL (0.000-0.055)
[2017-12-22] MEDS ORDERED: NITROGLYCERIN SUBLINGUAL 0.4 MG BOTTLE OF 25. SL (16:15)
[2017-12-22 20:02] LABS: TROPONINI < 0.017 ng/mL (0.000-0.055)
[2017-12-22] MEDS ORDERED: ONDANSETRON ODT 4 MG TAB.RAPDIS. PO (21:15)
[2017-12-22] MEDS ORDERED: tiZANidine 4 MG TABLET. PO (21:15)
[2017-12-22] MEDS ORDERED: diphenhydrAMINE HCL 25 MG CAPSULE PO (21:15)
[2017-12-22] MEDS: ATORVASTATIN CALCIUM 10 MG TABLET. PO (21:30)
[2017-12-22] MEDS ORDERED: QUEtiapine 25 MG TABLET. PO (21:45)
[2017-12-22] MEDS: LATANOPROST 0.005% OPHTH SOLUTION 2.5ML BOTTLE. OU (22:30)
[2017-12-22] MEDS: GABAPENTIN 100 MG CAPSULE. PO (22:30)
[2017-12-22] MEDS: FAMOTIDINE 20 MG TABLET. PO (22:35)
[2017-12-22] MEDS: tiZANidine 4 MG TABLET. PO (22:37)
[2017-12-22] MEDS: traMADol 50 MG TABLET PO (22:38)
[2017-12-22] MEDS: QUEtiapine 25 MG TABLET. PO (22:42)
[2017-12-22] MEDS: ACETAMINOPHEN 325 MG TABLET. PO (23:17)
[2017-12-22] MEDS: MORPHINE SULFATE 4 MG/ML DISP.SYRIN. IV (23:27)
[2017-12-23] MEDS ORDERED: SIMETHICONE 80 MG TAB.CHEW PO ×2 (00:46→09:00)
[2017-12-23] MEDS: ONDANSETRON PF 4 MG/2 ML VIAL. IV (00:50)
[2017-12-23] MEDS: SIMETHICONE 80 MG TAB.CHEW PO (01:23)
[2017-12-23] MEDS: IV NORMAL SALINE 500ML BAG 500 ML IV (04:15)
[2017-12-23 06:15] LABS: ADD MAN DIFF? NO
[2017-12-23 06:20] LABS: BASO % 1 % (0-3); EOS # 0.3 x10^3/uL (0.0-0.7); EOS % 6 % (0-3); HEMATOCRIT 37.1 % (36.0-47.0); HEMOGLOBIN 12.6 g/dL (12.0-15.5); LYMPH # 1.8 x10^3/uL (1.0-4.8); LYMPH % 34 % (24-48); MEAN CORPUSCULAR HEMOGLOBIN 31 pg (25-35); MEAN CORPUSCULAR HGB CONC 34 g/dL (31-37); MEAN CORPUSCULAR VOLUME 91 fL (79-100); MONO # 0.5 x10^3/uL (0.0-1.1); MONO % 9 % (0-9); NEUT # 2.7 x10^3uL (1.8-7.7); NEUT % 50 % (31-73); PLATELET COUNT 180 x10^3/uL (140-400); RED BLOOD COUNT 4.06 x10^6/uL (3.50-5.40); RED CELL DISTRIBUTION WIDTH 13.6 % (11.5-14.5); WHITE BLOOD COUNT 5.4 x10^3/uL (4.0-11.0)
[2017-12-23] MEDS: LEVOTHYROXINE 75 MCG TABLET PO (06:26)
[2017-12-23 06:39] LABS: LACTIC ACID 1.1 mmol/L (0.4-2.0)
[2017-12-23 06:43] LABS: TROPONINI < 0.017 ng/mL (0.000-0.055)
[2017-12-23 06:46] LABS: ANION GAP 8 (6-14); BLOOD UREA NITROGEN 18 mg/dL (7-20); CALCIUM 8.6 mg/dL (8.5-10.1); CARBON DIOXIDE 28 mmol/L (21-32); CHLORIDE 105 mmol/L (98-107); CREATININE 1.2 mg/dL (0.6-1.0); GFR 45.1; GLUCOSE 103 mg/dL (70-99); SODIUM 141 mmol/L (136-145)
[2017-12-23] MEDS: VITAMIN E 200 UNIT CAPSULE. PO (09:00)
[2017-12-23 09:42] LABS: CHOLESTEROL 247 mg/dL (0-200); HDLC 40 mg/dL (40-60); LDLC 165 mg/dL (0-100); NON-HDL CHOLESTEROL 207 mg/dL (0-129); TRIGLYCERIDES 208 mg/dL (0-150); VLDLC 42 mg/dL (0-40)
[2017-12-23 09:43] LABS: CHOLESTEROL/HDL RATIO 6.2
[2017-12-23] MEDS: ACYCLOVIR 200 MG CAPSULE. PO (09:50)
[2017-12-23] MEDS: ASCORBIC ACID 500 MG TABLET PO (09:51)
[2017-12-23] MEDS: CETIRIZINE HCL 10 MG TABLET. PO (09:51)
[2017-12-23] MEDS: CYANOCOBALAMIN (VITAMIN B-12) 1,000 MCG TABLET. PO (09:51)
[2017-12-23 09:52] LABS: THYROID STIM HORMONE (TSH) 34.552 uIU/mL (0.358-3.74)
[2017-12-23] MEDS: lamoTRIgine 100 MG TABLET. PO (09:52)
[2017-12-23] MEDS: LOSARTAN POTASSIUM 50 MG TABLET. PO (09:53)
[2017-12-23] MEDS: GABAPENTIN 100 MG CAPSULE. PO ×3 (09:53→21:15)
[2017-12-23] MEDS: CALCIUM CARBONATE 500 MG TABLET PO ×2 (09:53→11:48)
[2017-12-23 11:51] LABS: BILIRUBIN,URINE NEGATIVE (NEG); CLARITY,URINE CLEAR; COLOR,URINE YELLOW; GLUCOSE,URINE NEGATIVE (NEG); NITRITE,URINE NEGATIVE (NEG); PH,URINE 7.5; PROTEIN,URINE NEGATIVE (NEG-TRACE); UROBILINOGEN,URINE 0.2 mg/dL (0.2 mg/dL)
[2017-12-23 11:56] LABS: BACTERIA,URINE MOD /HPF (0-FEW); RBC,URINE OCC /HPF (0-2); WBC,URINE 20-40 /HPF (0-4)
[2017-12-23] MEDS: traMADol 50 MG TABLET PO (12:14)
[2017-12-23] MEDS ORDERED: ACETAMINOPHEN 325 MG TABLET. PO (12:15)
[2017-12-23] MEDS ORDERED: traMADol 50 MG TABLET PO (12:15)
[2017-12-23] MEDS ORDERED: DOCUSATE SODIUM 100 MG CAPSULE. PO (12:15)
[2017-12-23] MEDS ORDERED: ONDANSETRON PF 4 MG/2 ML VIAL. IV (12:15)
[2017-12-23] MEDS: ENOXAPARIN 30 MG/0.3 ML SYRINGE. SQ (12:49)
[2017-12-23] MEDS: MORPHINE SULFATE 4 MG/ML DISP.SYRIN. IV (17:15)
[2017-12-23] MEDS ORDERED: QUETIAPINE FUMARATE PO (21:00)
[2017-12-23] MEDS ORDERED: QUEtiapine 25 MG TABLET. PO (21:00)
[2017-12-23] MEDS: FAMOTIDINE 20 MG TABLET. PO (21:15)
[2017-12-23] MEDS: ATORVASTATIN CALCIUM 10 MG TABLET. PO (21:15)
[2017-12-23] MEDS: tiZANidine 4 MG TABLET. PO (21:16)
[2017-12-23] MEDS: QUEtiapine 25 MG TABLET. PO (21:16)
[2017-12-23] MEDS: LATANOPROST 0.005% OPHTH SOLUTION 2.5ML BOTTLE. OU (21:17)
[2017-12-23] MEDS: HYDROcodone/APAP 5/325MG 1 TAB TABLET PO (22:32)
[2017-12-24 04:15] LABS: ADD MAN DIFF? NO
[2017-12-24 04:58] LABS: BASO # 0.1 x10^3/uL (0.0-0.2); BASO % 1 % (0-3); EOS # 0.5 x10^3/uL (0.0-0.7); EOS % 9 % (0-3); HEMATOCRIT 39.8 % (36.0-47.0); HEMOGLOBIN 13.5 g/dL (12.0-15.5); LYMPH # 2.5 x10^3/uL (1.0-4.8); LYMPH % 48 % (24-48); MEAN CORPUSCULAR HEMOGLOBIN 31 pg (25-35); MEAN CORPUSCULAR HGB CONC 34 g/dL (31-37); MEAN CORPUSCULAR VOLUME 92 fL (79-100); MONO # 0.5 x10^3/uL (0.0-1.1); MONO % 10 % (0-9); NEUT # 1.8 x10^3uL (1.8-7.7); NEUT % 33 % (31-73); PLATELET COUNT 196 x10^3/uL (140-400); RED BLOOD COUNT 4.33 x10^6/uL (3.50-5.40); RED CELL DISTRIBUTION WIDTH 13.5 % (11.5-14.5); WHITE BLOOD COUNT 5.4 x10^3/uL (4.0-11.0)
[2017-12-24 05:11] LABS: ANION GAP 7 (6-14); BLOOD UREA NITROGEN 14 mg/dL (7-20); CALCIUM 8.4 mg/dL (8.5-10.1); CARBON DIOXIDE 31 mmol/L (21-32); CHLORIDE 105 mmol/L (98-107); CREATININE 1.1 mg/dL (0.6-1.0); GFR 49.8; GLUCOSE 106 mg/dL (70-99); SODIUM 143 mmol/L (136-145)
[2017-12-24 05:29] LABS: FREE T4 0.54 ng/dL (0.76-1.46)
[2017-12-24] MEDS: LEVOTHYROXINE 75 MCG TABLET PO (07:00)
[2017-12-24] MEDS: CALCIUM CARBONATE 500 MG TABLET PO ×2 (08:00→16:27)
[2017-12-24] MEDS: lamoTRIgine 100 MG TABLET. PO (08:51)
[2017-12-24] MEDS: GABAPENTIN 100 MG CAPSULE. PO ×2 (09:00→14:00)
[2017-12-24] MEDS: CETIRIZINE HCL 10 MG TABLET. PO (09:00)
[2017-12-24] MEDS: CYANOCOBALAMIN (VITAMIN B-12) 1,000 MCG TABLET. PO (09:00)
[2017-12-24] MEDS: ACYCLOVIR 200 MG CAPSULE. PO (09:00)
[2017-12-24] MEDS: LOSARTAN POTASSIUM 50 MG TABLET. PO (09:00)
[2017-12-24] MEDS: ASCORBIC ACID 500 MG TABLET PO (09:00)
[2017-12-24] MEDS: VITAMIN E 200 UNIT CAPSULE. PO (09:00)
[2017-12-24] MEDS: ENOXAPARIN 40 MG/0.4 ML SYRINGE. SQ (11:30)
[2017-12-24] MEDS: REGADENOSON 0.4 MG/5 ML DISP.SYRIN. IV (12:35)
[2017-12-24] MEDS: HYDROcodone/APAP 5/325MG 1 TAB TABLET PO (13:53)
[2017-12-24] MEDS: MORPHINE SULFATE 4 MG/ML DISP.SYRIN. IV (17:57)
[2017-12-24] MEDS ORDERED: ATORVASTATIN CALCIUM 40 MG TABLET. PO (21:00)
[2017-12-25] MEDS ORDERED: LEVOTHYROXINE 100 MCG TABLET PO (07:00)
== END 2017-12-24 19:57 | disposition home or self-care (01) | DRG 313 ==
LOC: ER 14:17 → 2 SOUTH 15:30
DX: R07.89 Other chest pain (principal); I25.110 Atherosclerotic heart disease of native coronary artery with unstable angina pectoris; I48.0 Paroxysmal atrial fibrillation; K31.84 Gastroparesis; I16.0 Hypertensive urgency; E03.9 Hypothyroidism, unspecified; E78.5 Hyperlipidemia, unspecified; H40.9 Unspecified glaucoma; I10 Essential (primary) hypertension; K21.9 Gastro-esophageal reflux disease without esophagitis; F32.9 Major depressive disorder, single episode, unspecified; M79.7 Fibromyalgia; F41.9 Anxiety disorder, unspecified; M19.90 Unspecified osteoarthritis, unspecified site; Z95.0 Presence of cardiac pacemaker; Z81.8 Family history of other mental and behavioral disorders; Z82.49 Family history of ischemic heart disease and other diseases of the circulatory system; Z83.3 Family history of diabetes mellitus; Z86.73 Personal history of transient ischemic attack (TIA), and cerebral infarction without residual deficits; Z90.49 Acquired absence of other specified parts of digestive tract; Z90.710 Acquired absence of both cervix and uterus; Z87.440 Personal history of urinary (tract) infections; I25.2 Old myocardial infarction
CPT/HCPCS: 36415; 71045; 78452; 80048; 80053; 80061; 81001; 83605; 83735; 84439; 84443; 84481; 84484; 85025; 93005; 93017; 93306; 96374; 96375; 96376; 97110-GP; 97116-GP; 97162-GP; 97530-GP; 99285; 99285-25; A9500; J1650; J2270; J2405; J2785; J7040

== ENCOUNTER 2017-12-28 13:27 | Inpatient (IN) | payer MEDICARE ==
[2017-12-28 13:46] LABS: ADD MAN DIFF? NO
[2017-12-28 13:52] LABS: BASO % 1 % (0-3); EOS # 0.4 x10^3/uL (0.0-0.7); EOS % 5 % (0-3); HEMATOCRIT 39.9 % (36.0-47.0); HEMOGLOBIN 13.3 g/dL (12.0-15.5); LYMPH # 1.9 x10^3/uL (1.0-4.8); LYMPH % 23 % (24-48); MEAN CORPUSCULAR HEMOGLOBIN 30 pg (25-35); MEAN CORPUSCULAR HGB CONC 33 g/dL (31-37); MEAN CORPUSCULAR VOLUME 92 fL (79-100); MONO # 0.5 x10^3/uL (0.0-1.1); MONO % 6 % (0-9); NEUT # 5.4 x10^3uL (1.8-7.7); NEUT % 65 % (31-73); PLATELET COUNT 180 x10^3/uL (140-400); RED BLOOD COUNT 4.36 x10^6/uL (3.50-5.40); RED CELL DISTRIBUTION WIDTH 13.1 % (11.5-14.5); WHITE BLOOD COUNT 8.3 x10^3/uL (4.0-11.0)
[2017-12-28 13:58] LABS: PROTHROMBIN TIME PATIENT 12.5 SEC (11.7-14.0)
[2017-12-28 13:59] LABS: ANION GAP 8 (6-14); BLOOD UREA NITROGEN 13 mg/dL (7-20); CALCIUM 9.5 mg/dL (8.5-10.1); CARBON DIOXIDE 29 mmol/L (21-32); CHLORIDE 104 mmol/L (98-107); GFR 55.6; GLUCOSE 99 mg/dL (70-99); POTASSIUM 3.4 mmol/L (3.5-5.1); SODIUM 141 mmol/L (136-145)
[2017-12-28 14:05] LABS: ALBUMIN 3.9 g/dL (3.4-5.0); ALK PHOS 61 U/L (46-116); ALT (SGPT) 28 U/L (14-59); AST (SGOT) 24 U/L (15-37); DIRECT BILIRUBIN 0.1 mg/dL (0.0-0.2); LIPASE 163 U/L (73-393); MAGNESIUM 1.7 mg/dL (1.8-2.4); TOTAL BILIRUBIN 0.4 mg/dL (0.2-1.0); TOTAL PROTEIN 7.6 g/dL (6.4-8.2)
[2017-12-28 14:11] LABS: TROPONINI < 0.017 ng/mL (0.000-0.055)
[2017-12-28 14:12] LABS: THYROID STIM HORMONE (TSH) 20.915 uIU/mL (0.358-3.74)
[2017-12-28 14:13] LABS: NT-PRO BNP 20 pg/mL (0-124)
[2017-12-28 14:13] LABS: CKMB INDEX 1.6 % (0-4); CKMB MASS 1.6 ng/mL (0.0-3.6); CREATINE KINASE 100 U/L (26-192)
[2017-12-28 15:54] LABS: BILIRUBIN,URINE NEGATIVE (NEG); CLARITY,URINE CLOUDY; COLOR,URINE YELLOW; GLUCOSE,URINE NEGATIVE (NEG); NITRITE,URINE NEGATIVE (NEG); PH,URINE 6.5; PROTEIN,URINE NEGATIVE (NEG-TRACE); UROBILINOGEN,URINE 0.2 mg/dL (0.2 mg/dL)
[2017-12-28 15:59] LABS: BARBITURATES NEG (NEG); BENZODIAZEPINES NEG (NEG); CANNABINOIDS NEG (NEG); COCAINE NEG (NEG); METHADONE NEG (NEG); OPIATES NEG (NEG); PHENCYCLIDINE NEG (NEG)
[2017-12-28 16:02] LABS: BACTERIA,URINE FEW /HPF (0-FEW); RBC,URINE OCC /HPF (0-2); WBC,URINE >40 /HPF (0-4)
[2017-12-28 16:04] LABS: AMPHETAMINE/METHAMPHETAMINE NEG (NEG); ETHANOL, URINE NEG (NEG)
[2017-12-28 16:11] LABS: D-DIMER 0.32 ug/mlFEU (0.00-0.50)
[2017-12-28] MEDS ORDERED: ONDANSETRON PF 4 MG/2 ML VIAL. IV (17:00)
[2017-12-28] MEDS ORDERED: NITROGLYCERIN SUBLINGUAL 0.4 MG BOTTLE OF 25. SL (17:00)
[2017-12-28] MEDS ORDERED: C.DIFF MED SCREEN BY RX. MC (18:45)
[2017-12-28 19:28] LABS: LACTIC ACID 0.8 mmol/L (0.4-2.0)
[2017-12-28 19:30] LABS: TROPONINI < 0.017 ng/mL (0.000-0.055)
[2017-12-28] MEDS ORDERED: LACTASE 3,000 UNIT TABLET PO (21:00)
[2017-12-28] MEDS ORDERED: QUEtiapine 25 MG TABLET. PO (21:15)
[2017-12-28] MEDS: LATANOPROST 0.005% OPHTH SOLUTION 2.5ML BOTTLE. OU (21:41)
[2017-12-28] MEDS: FAMOTIDINE 20 MG TABLET. PO (21:41)
[2017-12-28] MEDS: GABAPENTIN 100 MG CAPSULE. PO (21:41)
[2017-12-28] MEDS: tiZANidine 4 MG TABLET. PO (21:41)
[2017-12-28] MEDS: ATORVASTATIN CALCIUM 10 MG TABLET. PO (21:42)
[2017-12-28] MEDS: HYDROcodone/APAP 5/325MG 1 TAB TABLET PO (23:01)
[2017-12-28 23:35] LABS: TROPONINI < 0.017 ng/mL (0.000-0.055)
[2017-12-29] MEDS: GABAPENTIN 100 MG CAPSULE. PO ×3 (09:00→21:33)
[2017-12-29] MEDS ORDERED: BIOTIN 1000 MG PO (09:00)
[2017-12-29 09:45] LABS: ADD MAN DIFF? NO
[2017-12-29 09:56] LABS: BASO # 0.1 x10^3/uL (0.0-0.2); BASO % 1 % (0-3); EOS # 0.5 x10^3/uL (0.0-0.7); EOS % 8 % (0-3); HEMOGLOBIN 13.8 g/dL (12.0-15.5); LYMPH # 2.3 x10^3/uL (1.0-4.8); LYMPH % 37 % (24-48); MEAN CORPUSCULAR HEMOGLOBIN 31 pg (25-35); MEAN CORPUSCULAR HGB CONC 34 g/dL (31-37); MEAN CORPUSCULAR VOLUME 92 fL (79-100); MONO # 0.4 x10^3/uL (0.0-1.1); MONO % 6 % (0-9); NEUT # 2.9 x10^3uL (1.8-7.7); NEUT % 47 % (31-73); PLATELET COUNT 195 x10^3/uL (140-400); RED BLOOD COUNT 4.45 x10^6/uL (3.50-5.40); RED CELL DISTRIBUTION WIDTH 13.6 % (11.5-14.5); WHITE BLOOD COUNT 6.1 x10^3/uL (4.0-11.0)
[2017-12-29 10:15] LABS: ANION GAP 10 (6-14); BLOOD UREA NITROGEN 13 mg/dL (7-20); CALCIUM 8.9 mg/dL (8.5-10.1); CARBON DIOXIDE 31 mmol/L (21-32); CHLORIDE 103 mmol/L (98-107); GFR 55.6; GLUCOSE 121 mg/dL (70-99); POTASSIUM 3.6 mmol/L (3.5-5.1); SODIUM 144 mmol/L (136-145)
[2017-12-29] MEDS: CALCIUM CARBONATE 500 MG TABLET PO ×2 (12:48→17:04)
[2017-12-29] MEDS: lamoTRIgine 100 MG TABLET. PO (12:48)
[2017-12-29] MEDS: MULTIVITAMIN with MINERAL TABLET. PO (12:48)
[2017-12-29] MEDS: CYANOCOBALAMIN (VITAMIN B-12) 1,000 MCG TABLET. PO (12:49)
[2017-12-29] MEDS: ASCORBIC ACID 500 MG TABLET PO (12:49)
[2017-12-29] MEDS: ACYCLOVIR 200 MG CAPSULE. PO (12:52)
[2017-12-29] MEDS: VITAMIN E 200 UNIT CAPSULE. PO (12:53)
[2017-12-29] MEDS: CETIRIZINE HCL 10 MG TABLET. PO (12:53)
[2017-12-29] MEDS: IRON POLYSACCHARIDE COMPLEX 150 MG CAPSULE PO (12:53)
[2017-12-29] MEDS: SIMETHICONE 80 MG TAB.CHEW PO (12:54)
[2017-12-29] MEDS: LOSARTAN POTASSIUM 50 MG TABLET. PO (12:54)
[2017-12-29] MEDS: HYDROcodone/APAP 5/325MG 1 TAB TABLET PO ×2 (13:07→17:11)
[2017-12-29] MEDS ORDERED: CIPROFLOXACIN 200MG PREMIX 100 ML IV (14:00)
[2017-12-29] MEDS: ASPIRIN ENTERIC COATED 81 MG TABLET.DR. PO (17:04)
[2017-12-29] MEDS: ONDANSETRON ODT 4 MG TAB.RAPDIS. PO (20:06)
[2017-12-29] MEDS: LATANOPROST 0.005% OPHTH SOLUTION 2.5ML BOTTLE. OU (21:33)
[2017-12-29] MEDS: ATORVASTATIN CALCIUM 10 MG TABLET. PO (21:33)
[2017-12-29] MEDS: NITROFURANTOIN MONOHYD/M-CRYST 100 MG CAPSULE. PO (21:33)
[2017-12-29] MEDS: FAMOTIDINE 20 MG TABLET. PO (21:33)
[2017-12-29] MEDS: tiZANidine 4 MG TABLET. PO (21:33)
[2017-12-29] MEDS: LACTOBACILLUS RHAMNOSUS GG 1 CAPSULE. PO (21:33)
[2017-12-29] MEDS: QUEtiapine 25 MG TABLET. PO (21:38)
[2017-12-30 04:47] LABS: ADD MAN DIFF? NO
[2017-12-30 04:50] LABS: BASO # 0.1 x10^3/uL (0.0-0.2); BASO % 1 % (0-3); EOS # 0.4 x10^3/uL (0.0-0.7); EOS % 8 % (0-3); HEMATOCRIT 36.6 % (36.0-47.0); HEMOGLOBIN 12.5 g/dL (12.0-15.5); LYMPH # 2.3 x10^3/uL (1.0-4.8); LYMPH % 43 % (24-48); MEAN CORPUSCULAR HEMOGLOBIN 31 pg (25-35); MEAN CORPUSCULAR HGB CONC 34 g/dL (31-37); MEAN CORPUSCULAR VOLUME 91 fL (79-100); MONO # 0.4 x10^3/uL (0.0-1.1); MONO % 7 % (0-9); NEUT # 2.2 x10^3uL (1.8-7.7); NEUT % 40 % (31-73); PLATELET COUNT 176 x10^3/uL (140-400); RED BLOOD COUNT 4.01 x10^6/uL (3.50-5.40); RED CELL DISTRIBUTION WIDTH 13.4 % (11.5-14.5); WHITE BLOOD COUNT 5.4 x10^3/uL (4.0-11.0)
[2017-12-30 05:19] LABS: ALBUMIN 3.4 g/dL (3.4-5.0); ALBUMIN/GLOBULIN RATIO 0.9 (1.0-1.7); ALK PHOS 62 U/L (46-116); ALT (SGPT) 21 U/L (14-59); ANION GAP 7 (6-14); AST (SGOT) 18 U/L (15-37); BLOOD UREA NITROGEN 15 mg/dL (7-20); BUN/CREATININE RATIO 15 (6-20); CARBON DIOXIDE 29 mmol/L (21-32); CHLORIDE 105 mmol/L (98-107); GFR 55.6; GLUCOSE 106 mg/dL (70-99); POTASSIUM 3.3 mmol/L (3.5-5.1); SODIUM 141 mmol/L (136-145); TOTAL BILIRUBIN 0.3 mg/dL (0.2-1.0)
[2017-12-30] MEDS: CYANOCOBALAMIN (VITAMIN B-12) 1,000 MCG TABLET. PO (08:14)
[2017-12-30] MEDS: NITROFURANTOIN MONOHYD/M-CRYST 100 MG CAPSULE. PO ×2 (08:14→21:00)
[2017-12-30] MEDS: IRON POLYSACCHARIDE COMPLEX 150 MG CAPSULE PO (08:14)
[2017-12-30] MEDS: LACTOBACILLUS RHAMNOSUS GG 1 CAPSULE. PO ×2 (08:14→21:00)
[2017-12-30] MEDS: lamoTRIgine 100 MG TABLET. PO (08:15)
[2017-12-30] MEDS: MULTIVITAMIN with MINERAL TABLET. PO (08:15)
[2017-12-30] MEDS: ACYCLOVIR 200 MG CAPSULE. PO (08:15)
[2017-12-30] MEDS: VITAMIN E 200 UNIT CAPSULE. PO (08:15)
[2017-12-30] MEDS: GABAPENTIN 100 MG CAPSULE. PO ×3 (08:15→21:00)
[2017-12-30] MEDS: SIMETHICONE 80 MG TAB.CHEW PO (08:17)
[2017-12-30] MEDS: ASPIRIN ENTERIC COATED 81 MG TABLET.DR. PO (08:17)
[2017-12-30] MEDS: CALCIUM CARBONATE 500 MG TABLET PO ×2 (08:17→17:30)
[2017-12-30] MEDS: CETIRIZINE HCL 10 MG TABLET. PO (08:17)
[2017-12-30] MEDS: ASCORBIC ACID 500 MG TABLET PO (08:17)
[2017-12-30] MEDS ORDERED: HYOSCYAMINE 0.125 MG TAB.RAPDIS PO (13:30)
[2017-12-30] MEDS: LEVOTHYROXINE 100 MCG TABLET PO (15:49)
[2017-12-30] MEDS: LOSARTAN POTASSIUM 50 MG TABLET. PO (16:00)
[2017-12-30] MEDS: PSYLLIUM HUSK (SUGAR FREE) 1 PKT PACKET PO (17:30)
[2017-12-30] MEDS: HYDROcodone/APAP 5/325MG 1 TAB TABLET PO (17:31)
[2017-12-30] MEDS: ONDANSETRON ODT 4 MG TAB.RAPDIS. PO (19:35)
[2017-12-30] MEDS: ATORVASTATIN CALCIUM 10 MG TABLET. PO (21:00)
[2017-12-30] MEDS: FAMOTIDINE 20 MG TABLET. PO (21:00)
[2017-12-30] MEDS: tiZANidine 4 MG TABLET. PO (21:00)
[2017-12-30] MEDS: LATANOPROST 0.005% OPHTH SOLUTION 2.5ML BOTTLE. OU (21:00)
[2017-12-31] MEDS: HYDROcodone/APAP 5/325MG 1 TAB TABLET PO ×2 (02:01→09:29)
[2017-12-31] MEDS: LATANOPROST 0.005% OPHTH SOLUTION 2.5ML BOTTLE. OU (02:01)
[2017-12-31] MEDS ORDERED: SIMETHICONE 80 MG TAB.CHEW PO (03:00)
[2017-12-31] MEDS: SIMETHICONE 80 MG TAB.CHEW PO ×2 (03:03→09:26)
[2017-12-31] MEDS: clonazePAM 0.5 MG TABLET PO (03:03)
[2017-12-31] MEDS: LEVOTHYROXINE 100 MCG TABLET PO (05:51)
[2017-12-31] MEDS: CYANOCOBALAMIN (VITAMIN B-12) 1,000 MCG TABLET. PO (09:25)
[2017-12-31] MEDS: GABAPENTIN 100 MG CAPSULE. PO ×2 (09:25→13:50)
[2017-12-31] MEDS: MULTIVITAMIN with MINERAL TABLET. PO (09:26)
[2017-12-31] MEDS: CALCIUM CARBONATE 500 MG TABLET PO (09:26)
[2017-12-31] MEDS: VITAMIN E 200 UNIT CAPSULE. PO (09:26)
[2017-12-31] MEDS: ASCORBIC ACID 500 MG TABLET PO (09:27)
[2017-12-31] MEDS: CETIRIZINE HCL 10 MG TABLET. PO (09:27)
[2017-12-31] MEDS: LACTOBACILLUS RHAMNOSUS GG 1 CAPSULE. PO (09:27)
[2017-12-31] MEDS: IRON POLYSACCHARIDE COMPLEX 150 MG CAPSULE PO (09:27)
[2017-12-31] MEDS: LOSARTAN POTASSIUM 50 MG TABLET. PO (09:27)
[2017-12-31] MEDS: ASPIRIN ENTERIC COATED 81 MG TABLET.DR. PO (09:27)
[2017-12-31] MEDS: NITROFURANTOIN MONOHYD/M-CRYST 100 MG CAPSULE. PO (09:27)
[2017-12-31] MEDS: lamoTRIgine 100 MG TABLET. PO (09:28)
[2017-12-31] MEDS: ACYCLOVIR 200 MG CAPSULE. PO (09:28)
[2017-12-31] MEDS: ONDANSETRON ODT 4 MG TAB.RAPDIS. PO (09:28)
[2017-12-31] MEDS: PSYLLIUM HUSK (SUGAR FREE) 1 PKT PACKET PO (09:28)
== END 2017-12-31 15:18 | disposition home or self-care (01) | DRG 392 ==
LOC: ER 13:27 → 5 NORTH 16:00
DX: K21.9 Gastro-esophageal reflux disease without esophagitis (principal); I48.0 Paroxysmal atrial fibrillation; I49.5 Sick sinus syndrome; K31.84 Gastroparesis; K81.9 Cholecystitis, unspecified; N39.0 Urinary tract infection, site not specified; K62.5 Hemorrhage of anus and rectum; M19.90 Unspecified osteoarthritis, unspecified site; E78.5 Hyperlipidemia, unspecified; E03.9 Hypothyroidism, unspecified; F32.9 Major depressive disorder, single episode, unspecified; F41.9 Anxiety disorder, unspecified; H40.9 Unspecified glaucoma; I10 Essential (primary) hypertension; I25.10 Atherosclerotic heart disease of native coronary artery without angina pectoris; M79.7 Fibromyalgia; Z82.3 Family history of stroke; Z86.73 Personal history of transient ischemic attack (TIA), and cerebral infarction without residual deficits; Z90.49 Acquired absence of other specified parts of digestive tract; Z90.710 Acquired absence of both cervix and uterus; I25.2 Old myocardial infarction; Z88.0 Allergy status to penicillin; Z88.2 Allergy status to sulfonamides; Z88.8 Allergy status to other drugs, medicaments and biological substances; Z91.041 Radiographic dye allergy status
CPT/HCPCS: 36415; 70450; 71045; 80048; 80053; 80076; 80307; 81001; 82553; 83605; 83690; 83735; 83880; 84443; 84484; 85025; 85379; 85610; 87086; 93005; 93880; 99285; 99285-25; Q0162

== ENCOUNTER 2018-02-09 09:10 | Outpatient (CLI) | payer MEDICARE ==
[~2018-02-09 09:10] MED LIST changes: -ACYC400T PO; -ACYLOVIR PO; -ASCO10002 PO; -ASPI325T8 PO; -BIMA2.5D EACHEYE; -CALC600T4 PO; -CARV3.12 PO; -CEPH500C PO; -CETI10CA PO; -CIPR500T94 PO; -CRESTOR5 MG PO; -CYAN10005 PO; -DICL112S2 TP; -DIPH25CA58 PO; -ERYT250T14 PO; -ESCITALOPRAM OXA5 M1 PEG; -ESOM40CA PO; -ESTR50GE TD; -FENO160T PO; -FENT1PAT17 TD; -FENT1PAT19 TD; -FLUO20CA16 PO; -FLUT16SP NS; -GABA100C6 PEG; -HYDR-2680 PO; -HYDR-971 PO; +IODIXANOL 320 MG/ML 100 ML VIAL.; -ISOS30TA4 PO; -L GA1CAP2 PO; -LACT1CAP29 PO; -LAMO200T PO; -LAMO25TA PEG; -LATA2.5D3 EACHEYE; -LEVO100T5 PO; -LEVO75TA5 PO; -LORA0.5T PO; -LOSA50TA6 PO; -MELA5TAB20 PO; -METO10TA81 PO; -METO25TA4 PO; -METR500T PO; -MULT-246 PO; -MULT-496 PO; -MUPI22OI2 TP; -NYST15CR2 TP; -ONDA4TAB10 PO; -ONDA4TAB10 SL; -ONDA4TAB7 PO; -PANT40TA3 PO; -PRAV40TA2 PO; -QUET50TA5 PO; -RANI300C PO; -RANI300T PO; -RANI50VI5 IJ; -STOOL SOFTERNER PO; -SUCR1TAB35 PO; -TIZA4CAP3 PO; -TRAM50TA PO; -TRAZ50TA15 PO; -VITA400C36 PO; -[UNRECOGNIZED DRUG - OTHER] OU; -biotin PO; -lortab; -lortab PO; -renexa; -resperidone
[2018-02-09 09:36] LABS: HEMATOCRIT 41.8 % (36.0-47.0); HEMOGLOBIN 14.5 g/dL (12.0-15.5); MEAN CORPUSCULAR HEMOGLOBIN 32 pg (25-35); MEAN CORPUSCULAR HGB CONC 35 g/dL (31-37); MEAN CORPUSCULAR VOLUME 92 fL (79-100); PLATELET COUNT 194 x10^3/uL (140-400); RED BLOOD COUNT 4.56 x10^6/uL (3.50-5.40)
[2018-02-09 09:43] LABS: ANION GAP 7 (6-14); BLOOD UREA NITROGEN 11 mg/dL (7-20); CALCIUM 9.6 mg/dL (8.5-10.1); CARBON DIOXIDE 32 mmol/L (21-32); CHLORIDE 103 mmol/L (98-107); CREATININE 0.8 mg/dL (0.6-1.0); GLUCOSE 123 mg/dL (70-99); POTASSIUM 3.3 mmol/L (3.5-5.1); SODIUM 142 mmol/L (136-145)
[2018-02-09 09:50] LABS: INR 0.9 (0.8-1.1); PARTIAL THROMBOPLASTIN TIME 25 SEC (24-38); PROTHROMBIN TIME PATIENT 12.1 SEC (11.7-14.0)
[2018-02-09] MEDS ORDERED: LIDOCAINE 2% 20 ML VIAL. (10:19)
[2018-02-09] MEDS ORDERED: methylPREDNISolone SOD SUCC PF 125 MG/2 ML VIAL. (10:51)
[2018-02-09] MEDS ORDERED: MIDAZOLAM HCL/PF 2 MG/2 ML VIAL. (10:51)
[2018-02-09] MEDS ORDERED: FAMOTIDINE 20 MG/2 ML VIAL (10:51)
[2018-02-09] MEDS ORDERED: fentaNYL PF VIAL 100 MCG/2 ML VIAL (10:51)
[2018-02-09] MEDS ORDERED: diphenhydrAMINE 50 MG/ML VIAL (10:52)
[2018-02-09] MEDS ORDERED: IOHEXOL 300 MG/ML 100ML VIAL. (11:03)
[2018-02-09] MEDS ORDERED: NITROGLYCERIN SUBLINGUAL 0.4 MG BOTTLE OF 25. SL (11:15)
[2018-02-09] MEDS ORDERED: 0.9 % SODIUM CHLORIDE 10 ML DISP.SYRIN. IV (11:15)
[2018-02-09] MEDS: methylPREDNISolone SOD SUCC PF 125 MG/2 ML VIAL. IV (11:19)
[2018-02-09] MEDS: MIDAZOLAM HCL/PF 2 MG/2 ML VIAL. IV (11:19)
[2018-02-09] MEDS: fentaNYL PF VIAL 100 MCG/2 ML VIAL IV (11:19)
[2018-02-09] MEDS ORDERED: NITROGLYCERIN 200 MCG/2 ML SYRINGE FOR CATH/VASC LAB. (11:20)
[2018-02-09] MEDS: LIDOCAINE 2% 20 ML VIAL. IJ (11:30)
[2018-02-09] MEDS: NITROGLYCERIN 200 MCG/2 ML SYRINGE FOR CATH/VASC LAB. ICAR (11:30)
[2018-02-09] MEDS: IOHEXOL 300 MG/ML 100ML VIAL. IART (11:30)
== END 2018-02-09 14:10 ==
LOC: CCL 09:10
DX: I20.0 Unstable angina (principal); H40.9 Unspecified glaucoma; I25.2 Old myocardial infarction; E78.00 Pure hypercholesterolemia, unspecified; I48.91 Unspecified atrial fibrillation; I10 Essential (primary) hypertension; K21.9 Gastro-esophageal reflux disease without esophagitis; M19.90 Unspecified osteoarthritis, unspecified site; E03.9 Hypothyroidism, unspecified; F32.9 Major depressive disorder, single episode, unspecified; F41.9 Anxiety disorder, unspecified; Z90.49 Acquired absence of other specified parts of digestive tract; Z98.890 Other specified postprocedural states; Z90.710 Acquired absence of both cervix and uterus; Z90.721 Acquired absence of ovaries, unilateral; Z87.440 Personal history of urinary (tract) infections; Z81.8 Family history of other mental and behavioral disorders; Z82.49 Family history of ischemic heart disease and other diseases of the circulatory system
CPT/HCPCS: 36415; 80048; 85027; 85610; 85730; 93458; 99152; C1769; C1771; C1892; G0269; J1644; J2250; J2930; J3010; J3490; Q9967

== ENCOUNTER → 2018-05-12 | Outpatient (CLI) | payer MEDICARE ==
[2018-02-09 13:30] VITALS: BP 140/91
[~2018-05-12] MED LIST changes: +ACYC400T PO; +ACYLOVIR PO; +ASCO10002 PO; +ASPI325T8 PO; +BIMA2.5D EACHEYE; +CALC600T4 PO; +CARV3.12 PO; +CEPH500C PO; +CETI10CA PO; +CETI10TA22 PO; +CIPR500T94 PO; +CRESTOR5 MG PO; +CYAN10005 PO; +DICL112S2 TP; +DIPH25CA58 PO; +ERYT250T14 PO; +ESCITALOPRAM OXA5 M1 PEG; +ESOM40CA PO; +ESTR50GE TD; +FENO160T PO; +FENT1PAT17 TD; +FENT1PAT19 TD; +FLUO20CA16 PO; +FLUT16SP NS; +GABA100C6 PO; +HYDR-2680 PO; +HYDR-971 PO; -IODIXANOL 320 MG/ML 100 ML VIAL.; +ISOS30TA4 PO; +L GA1CAP2 PO; +LACT1CAP29 PO; +LAMO200T2 PO; +LAMO25TA PEG; +LATA2.5D3 EACHEYE; +LEVO100T5 PO; +LEVO75TA5 PO; +LORA0.5T PO; +LOSA50TA6 PO; +MELA5TAB20 PO; +METO10TA81 PO; +METO25TA4 PO; +METR500T PO; +MULT-246 PO; +MULT-496 PO; +MUPI22OI2 TP; +NYST15CR2 TP; +ONDA4TAB10 PO; +ONDA4TAB10 SL; +ONDA4TAB7 PO; +PANT40TA3 PO; +PRAV40TA2 PO; +QUET50TA5 PO; +RANI300C PO; +RANI300T PO; +RANI50VI5 IJ; +SELE200T10 PO; +SIME180C16 PO; +STOOL SOFTERNER PO; +SUCR1TAB35 PO; +TIZA4CAP3 PO; +TIZA4TAB8 PO; +TRAM50TA PO; +TRAZ-85 PO; +VITA400C36 PO; +ZINC50TA33 PO; +[UNRECOGNIZED DRUG - OTHER] OU; +biotin PO; +iron; +lortab; +lortab PO; +renexa; +resperidone
--- NOTE | 2018-05-12 14:10 | RAD ---
EXAM: Bilateral feet, 3 views. HISTORY: Pain. COMPARISON: None. FINDINGS: 3 views of both feet are obtained. There is no acute fracture, dislocation or subluxation. There is slight left hallux valgus. There are bilateral accessory navicular bones. There is slight enthesopathy along the right Achilles tendon insertion. IMPRESSION: No acute osseous finding. Mild left hallux valgus deformity. Electronically signed by: Jolene Gao MD (05/12/2018 2:07 PM) [place] [id number]
--- NOTE | 2018-05-12 14:21 | RAD ---
Bilateral hands, 6 views, 05/12/2018: HISTORY: Hand pain There is narrowing of scattered interphalangeal and MCP joints bilaterally with mild to moderate marginal spurring. There is moderate degenerative change at the left first CMC joint. There is mild spurring at the right first CMC joint.. There are degenerative changes involving intracarpal articulations along the radial aspects of both wrists. No bone erosions are seen. No fracture or dislocation is identified. IMPRESSION: 1. Moderate scattered degenerative changes. 2. No acute bony abnormality is detected. Electronically signed by: Denis Mo MD (05/12/2018 2:18 PM) [facility]
== END | disposition home or self-care (01) ==
LOC: RAD 13:29
PROVIDERS: ATTEND Internal Medicine Rheumatology
DX: M20.12 Hallux valgus (acquired), left foot (principal); M77.8 Other enthesopathies, not elsewhere classified
CPT/HCPCS: 73130; 73630

== ENCOUNTER → 2018-09-29 | Outpatient (CLI) | payer MEDICARE ==
[2018-02-09 13:30] VITALS: BP 140/91
[~2018-09-29] MED LIST changes: +ASPI81TA50 PO; +BACL10TA PO; +CELE100C PO; +CONTRAST GIVEN. MC PRN; +GABA600T7 PO; +HYDR-3164 PO; -HYDR-971 PO; +IOHEXOL 240 MG/ML 50ML VIAL. PO ONE; +IOHEXOL 300 MG/ML 100ML VIAL. IV ONE; -LAMO25TA PEG; +LAMO25TA9 PEG; +LOSA-73 PO; -LOSA50TA6 PO; +MULT1TAB52 PO; +OLAN5TAB9 PO; +ONDA4TAB12 PO; +RANO500T2 PO; +TIZA4TAB PO; +TRAZ-118 PO; -TRAZ-85 PO
[2018-09-29 08:44] LABS: CREATININE 0.7 mg/dL (0.6-1.0); GFR 83.7
--- NOTE | 2018-09-29 10:28 | RAD ---
CT of the abdomen and pelvis with contrast, 09/29/2018: HISTORY: Incisional hernia Multidetector CT imaging was performed following oral and IV administration of contrast. The gallbladder is surgically absent. No hepatic abnormality is seen. Mild prominence of the common hepatic duct is compatible with the postcholecystectomy state. No pancreatic abnormality is seen. The spleen is of normal size. There are 2 small subcentimeter lesions in the right kidney which are too small to definitively characterize but are most likely cysts. The kidneys show no evidence of obstruction. There is minimal aortoiliac calcific plaquing. No abdominal or pelvic adenopathy is seen. The uterus is surgically absent. The bowel loops are not dilated. There is interposition of portions of the right colon between the liver and the right hemidiaphragm with the cecum lying in the right upper quadrant anteriorly. No free fluid or free air is evident in the abdomen or pelvis. The rectus abdominis musculature is diastatic with moderate anterior bulging of the intervening fascia. A portion of the stomach bulges into this region. This bulge has worsened slightly since 12/26/2016. In the subxiphoid region there is a small focal defect in the fascia at the midline containing only fat. This was also evident on the previous study. IMPRESSION: 1. Diastases of the rectus abdominis musculature with anterior bulging of the intervening fascia. 2. Tiny subxiphoid midline fascial defect containing only fat. 3. Small right renal cysts. PQRS Compliance Statement: One or more of the following individualized dose reduction techniques were utilized for this examination: 1. Automated exposure control 2. Adjustment of the mA and/or kV according to patient size 3. Use of iterative reconstruction technique Electronically signed by: Denis Mo MD (09/29/2018 10:24 AM) [facility]
== END | disposition home or self-care (01) ==
LOC: CT 07:40
PROVIDERS: ATTEND Surgery
DX: K43.2 Incisional hernia without obstruction or gangrene (principal); M62.08 Separation of muscle (nontraumatic), other site; N28.1 Cyst of kidney, acquired
CPT/HCPCS: 36415; 74177; 82565; 84520; Q9966; Q9967

== ENCOUNTER → 2019-01-24 | Outpatient (CLI) | payer MEDICARE ==
[2018-10-24 11:00] VITALS: BP 98/50
[~2019-01-24] MED LIST changes: -CONTRAST GIVEN. MC PRN
[2019-01-24 08:18] LABS: CREATININE 0.8 mg/dL (0.6-1.0); GFR 71.8
--- NOTE | 2019-01-24 09:18 | RAD ---
CT abdomen pelvis with contrast dated 01/24/2019. Comparison made to 09/29/2018. CLINICAL INDICATION: Generalized abdominal pain. TECHNIQUE: Contiguous axial imaging the abdomen and pelvis performed after the administration of 50 cc Omnipaque 240. Oral contrast administered. One or more of the following individualized dose reduction techniques were utilized for this examination: 1. Automated exposure control 2. Adjustment of the mA and/or kV according to patient size 3. Use of iterative reconstruction technique. FINDINGS: Limited images of lung bases are clear. Heart size within normal limits. No pleural or pericardial effusion. Liver is homogeneous in attenuation. No apparent mass. The intrahepatic biliary tree is within normal limits in caliber. The common bile duct is dilated measuring up to 1.2 cm diameter versus 9 mm previously. No apparent filling defect. Gallbladder is surgically absent. Spleen is normal in size. There is mild fatty atrophy of the pancreas. No apparent pancreatic mass. Adrenal glands and kidneys are unremarkable. No hydronephrosis. Low-density foci at the lower pole right kidney, likely cyst. Partially opacified GI tract normal in caliber and contour. No focal bowel wall thickening. No inflammatory stranding in the mesentery. The appendix is not identified and likely surgically absent. No free fluid or lymphadenopathy. The abdominal aorta normal in caliber. Images of pelvis show nondistended urinary bladder. Uterus is surgically absent. No free fluid or lymphadenopathy. Bone windows show no acute findings. Multilevel spondylosis. Slight anterolisthesis of L4 on L5. IMPRESSION: 1. No acute abnormality of abdomen or pelvis. 2. Dilated extra hepatic biliary tree, similar to slightly increased from prior study. This is most likely related to age and postcholecystectomy state. A distal stricture cannot be excluded. Correlate with laboratory values. 3. Status post cholecystectomy, appendectomy and hysterectomy. Electronically signed by: Eliezer Oropeza MD (01/24/2019 9:15 AM) [id number]
== END | disposition home or self-care (01) ==
LOC: CT 06:57
DX: K86.89 Other specified diseases of pancreas (principal); M47.819 Spondylosis without myelopathy or radiculopathy, site unspecified; M43.16 Spondylolisthesis, lumbar region; Z90.49 Acquired absence of other specified parts of digestive tract; Z90.710 Acquired absence of both cervix and uterus
CPT/HCPCS: 36415; 74177; 82565; 84520; Q9966; Q9967

== ENCOUNTER → 2019-07-14 | Outpatient (CLI) | payer MEDICARE ==
[2018-10-24 11:00] VITALS: BP 98/50
[~2019-07-14] MED LIST changes: +CONTRAST GIVEN. MC PRN; +CYAN-25 PO; -CYAN10005 PO; -PANT40TA3 PO; +PANT40TA77 PO; -TIZA4TAB PO; +TIZA4TAB2 PO
[2019-07-14 09:40] LABS: GFR 55.5
--- NOTE | 2019-07-14 11:09 | RAD ---
CT ABD PELV W/ORAL IV CONTRAST Indication: Abdominal pain Technique: Postcontrast CT imaging was performed of the abdomen pelvis, multiplanar reconstruction images submitted. Oral contrast was also given. One or more of the following individualized dose reduction techniques were utilized for this examination: 1. Automated exposure control 2. Adjustment of the mA and/or kV according to patient size 3. Use of iterative reconstruction technique. Comparison: January 24, 2019 Findings: There is mild dependent atelectasis visualized right lung base. Note is made of leads from electronic cardiac device. No new focal abnormality is identified of the liver, spleen, partially atrophic pancreas. There is again extra-axial biliary ductal dilatation, mild central intrahepatic biliary ductal dilatation. Extra hepatic common bile duct measures about 1.1 cm which is similar. Both kidneys enhance, no hydronephrosis. There is no adrenal nodularity. There is a small 0.6 cm hypodense lesion of the right kidney and also tiny hypodense lesion posteriorly about 0.3 cm which are too small to accurately characterize, similar in size in interval. The colon is not opacified with oral contrast during the exam. There is long segment moderate wall thickening of the more distal transverse colon through proximal sigmoid colon, mild hazy change about the distal descending colon and proximal sigmoid colon. There is also likely mild wall thickening of the cecum. There again has been appendectomy, cholecystectomy, hysterectomy. There is no free air or localized extraluminal fluid collection. There is multilevel lumbar facet degenerative change. There is lumbar degenerative disc disease greatest at L2-3. There is grade 1 anterior spondylolisthesis at L4-5. There is electronic device of the right buttock soft tissues with leads coursing into the right posterior pelvis. IMPRESSION: 1. There is long segment colonic wall thickening, evidence of colitis. Colon screening is recommended after resolution of acute symptoms if this is not been performed. 2. There is stable extrahepatic biliary ductal dilatation. Electronically signed by: Roshan Waller MD (07/14/2019 11:07 AM) [id number]
== END | disposition home or self-care (01) ==
LOC: CT 09:21
PROVIDERS: ATTEND Surgery
DX: J98.11 Atelectasis (principal); M43.16 Spondylolisthesis, lumbar region; M51.36 Other intervertebral disc degeneration, lumbar region; Z90.710 Acquired absence of both cervix and uterus; Z90.49 Acquired absence of other specified parts of digestive tract
CPT/HCPCS: 36415; 74177; 82565; 84520; Q9966; Q9967

== ENCOUNTER → 2020-07-16 | Outpatient (CLI) | payer BC, MEDICARE ==
[2018-10-24 11:00] VITALS: BP 98/50
[~2020-07-16] MED LIST changes: +ASCO100019 PO; -ASCO10002 PO; -CALC600T4 PO; +CALC600T6 PO; -CETI10TA22 PO; +CETI10TA74 PO; -CONTRAST GIVEN. MC PRN; -IOHEXOL 240 MG/ML 50ML VIAL. PO ONE; -IOHEXOL 300 MG/ML 100ML VIAL. IV ONE; -LAMO200T2 PO; +LAMO200T6 PO; +MULT-445 PO; -MULT1TAB52 PO; +VITA-8 PO; -VITA400C36 PO
--- NOTE | 2020-07-17 16:25 | CARD ---
MR#: [id number] Date of Study: 07/16/2020 Ordering Physician: MYRA RAE, Referring Physician: MYRA RAE, Tech: Hanna Moreno [facility] APPROVED REPORT EXAM: Two-dimensional and M-mode echocardiogram with Doppler and color Doppler. Other Information Quality : Fair INDICATION Cardiac Disease: CAD Pacemaker 2D DIMENSIONS RVDd2.9 (2.9-3.5cm)Left Atrium(2D)2.7 (1.6-4.0cm) IVSd0.7 (0.7-1.1cm)Aortic Root(2D)2.7 (2.0-3.7cm) LVDd4.2 (3.9-5.9cm)LVOT Diameter2.0 (1.8-2.4cm) PWd0.7 (0.7-1.1cm)LVDs3.2 (2.5-4.0cm) FS (%) 30.0 %SV39.5 ml LVEF(%)60.0 (>50%) Aortic Valve AoV Peak Mayito.135.7cm/sAoV VTI24.4cm AO Peak GR.7.4mmHgLVOT Peak Mayito.99.1cm/s AO Mean GR.4mmHgAVA (VMAX)2.24cm2 DORIS (VTI)2.90cm2 Mitral Valve MV E Yhkagxqw68.9cm/sMV DECEL [id number] MV A Szdharnb56.8cm/sE/A Ratio0.7 Tricuspid Valve TR P. Eulfqgke554mc/sRAP [id number] TR Peak Gr.86wsIlLTFO70jcOl Pulmonary Vein S1 Eyqkokrh05.1cm/sD2 Vyqctvbn68.8cm/s LEFT VENTRICLE The left ventricle is normal size. There is normal left ventricular wall thickness. The left ventricu lar systolic function is normal and the ejection fraction is within normal range. The Ejection Fracti on is 55-60%. There is normal LV segmental wall motion. RIGHT VENTRICLE The right ventricle is normal size. The right ventricular systolic function is normal. There are swathi ce leads in the right ventricle and atrium. ATRIA The left atrium size is normal. The right atrium size is normal. The interatrial septum is intact wit h no evidence for an atrial septal defect or patent foramen ovale as noted on 2-D or Doppler imaging. AORTIC VALVE The aortic valve is calcified but opens well. Doppler and Color Flow revealed no significant aortic r egurgitation. There is no significant aortic valvular stenosis. MITRAL VALVE The mitral valve is normal in structure and function. There is no evidence of mitral valve prolapse. There is no mitral valve stenosis. Doppler and Color-flow revealed trace mitral regurgitation. TRICUSPID VALVE The tricuspid valve is normal in structure and function. Doppler and Color Flow revealed mild tricusp id regurgitation. The PA pressure was estimated at 34 mmHg. There is no tricuspid valve stenosis. PULMONIC VALVE The pulmonic valve is not well visualized. Doppler and Color Flow revealed trace pulmonic valvular re gurgitation. There is no pulmonic valvular stenosis. GREAT VESSELS The aortic root is normal in size. The ascending aorta is normal in size. The IVC is normal in size a nd collapses >50% with inspiration. PERICARDIAL EFFUSION There is no evidence of significant pericardial effusion. Critical Notification Critical Value: No <Conclusion> The left ventricle is normal size. The left ventricular systolic function is normal and the ejection fraction is within normal range. The Ejection Fraction is 55-60%. There are device leads in the right ventricle and atrium. Doppler and Color Flow revealed no significant aortic regurgitation. There is no significant aortic valvular stenosis. Doppler and Color-flow revealed trace mitral regurgitation. Doppler and Color Flow revealed mild tricuspid regurgitation. The PA pressure was estimated at 34 mmHg. Signed by : Vince Vaca MD Electronically Approved : 07/17/2020 16:24:56
== END ==
LOC: ECHO 10:42
PROVIDERS: ATTEND Internal Medicine Cardiovascular Disease
DX: I08.2 Rheumatic disorders of both aortic and tricuspid valves (principal); I25.10 Atherosclerotic heart disease of native coronary artery without angina pectoris
CPT/HCPCS: 93306

== ENCOUNTER 2021-05-05 12:51 | Observation (INO) | payer BC, MEDICARE ==
[~2021-05-05] VITALS: Ht 157.5 cm; Wt 43.1 kg
[~2021-05-05 12:51] MED LIST changes: +ACYC-12 PO; -ACYC400T PO; -CALC600T6 PO; +CALC600T60 PO; -ISOS30TA4 PO; +ISOS30TA68 PO; -LACT1CAP29 PO; +LACT1CAP37 PO; +OLAN5TAB67 PO; -OLAN5TAB9 PO; -SIME180C16 PO; +SIME180C61 PO
[2021-05-05] MEDS ORDERED: IV NORMAL SALINE 1000ML BAG 1,000 ML IV ONE (13:15)
[2021-05-05 13:42] LABS: BASO % 0 % (0-3); EOS # 0.1 x10^3/uL (0.0-0.7); EOS % 2 % (0-3); HEMATOCRIT 35.9 % (36.0-47.0); HEMOGLOBIN 12.3 g/dL (12.0-15.5); LYMPH % 17 % (24-48); MEAN CORPUSCULAR HEMOGLOBIN 30 pg (25-35); MEAN CORPUSCULAR HGB CONC 34 g/dL (31-37); MEAN CORPUSCULAR VOLUME 88 fL (79-100); MONO # 0.5 x10^3/uL (0.0-1.1); MONO % 9 % (0-9); NEUT # 4.4 x10^3/uL (1.8-7.7); NEUT % 73 % (31-73); PLATELET COUNT 195 x10^3/uL (140-400); RED BLOOD COUNT 4.07 x10^6/uL (3.50-5.40); RED CELL DISTRIBUTION WIDTH 13.9 % (11.5-14.5); WHITE BLOOD COUNT 6.1 x10^3/uL (4.0-11.0)
--- NOTE | 2021-05-05 13:51 | RAD ---
XR CHEST 1V History: Reason: SYNCOPE / Spl. Instructions: / History: Comparison: None. Findings: Hyperinflation. No consolidation or pleural effusion. Normal heart size. No pneumothorax. Left sided pacemaker. Prior granulous disease within the chest. Impression: 1. No acute cardiopulmonary process. Electronically signed by: Glen West DO (05/05/2021 1:49 PM) [id number]
[2021-05-05 13:53] LABS: GFR 55.1; POTASSIUM 4.2 mmol/L (3.5-5.1)
[2021-05-05 13:58] LABS: ALBUMIN 3.4 g/dL (3.4-5.0); MAGNESIUM 1.8 mg/dL (1.8-2.4); TOTAL BILIRUBIN 0.4 mg/dL (0.2-1.0); TOTAL PROTEIN 6.7 g/dL (6.4-8.2)
--- NOTE | 2021-05-05 14:02 | RAD ---
CT Head W/O Contrast: History: Reason: SYNCOPE, FALL / Spl. Instructions: / History: Comparison: none Axial images were obtained without contrast. There is moderate diffuse atrophy. There is no mass effect, extraaxial fluid collections or hydrocep halus. There is no gross bleed. Mild, patchy periventricular and subcortical white matter hypoatten uation is seen. There is no focal loss of pierce-white matter distinction to suggest acute ischemia, i .e. stroke. Impression: No acute findings. End impression CT C-Spine without contrast: Clinical History: Reason: SYNCOPE, FALL / Spl. Instructions: / History: Technique: Axial helical images of the cervical spine were obtained without contrast, axial coronal and sagittal reconstruction was performed. Findings: There is no loss of vertebral body stature. There is no prevertebral soft tissue swelling. There is grade 1 anterolisthesis of C2 on C3 and C4 on C5. There is mild reversal of the normal cervical lordo sis which can be positional or could be chronic. The C1-C2 relationship is normal. The visualized oss eous structures appear normal. Evaluation of the central canal is limited without contrast. There is loss of intervertebral disc height and marginal spurring at endplates at C3-C4 and C5-C6 and C6-C7. The disc osteophytic ridges at these levels results in flattening of the thecal sac. There does not a ppear to be gross flattening of the cervical cord. There is marked narrowing of multiple neuroforamen . Impression: No acute findings. Clinical correlation suggested. End impression PQRS Compliance Statement: One or more of the following individualized dose reduction techniques were utilized for this examinat ion: 1. Automated exposure control 2. Adjustment of the mA and/or kV according to patient size 3. Use of iterative reconstruction technique Electronically signed by: Alexey Lau III, MD (05/05/2021 2:00 PM) [facility]
--- NOTE | 2021-05-05 14:12 | PHYS DOC ---
Past Medical History Past Medical History: Arthritis, Arrhythmia, Fibromyalgia, Glaucoma, Hypertension, Hypothyroid, SC, TIA, Other Additional Past Medical Histor: 2 bulging discs, tremors, ULCERS, gastroparesis Past Surgical History: Cholecystectomy, Hysterectomy, Pacemaker, Other Additional Past Surgical Histo: L breast bx, fibroma L posterior knee, cardiac cath X 4, J-tube Smoking Status: Never Smoker Alcohol Use: None Drug Use: None General Adult EDM: Chief Complaint: SYNCOPE HPI: HPI: Patient is a 70 year old female who presents with was walking in the [place] today with her and her son when she stated that she was dizzy and she lo st consciousness and her son was able to catch her and bring her down to the floor. Blood pressure was very low upon EMS arrival. Patient is currently alert to herself which is normal for her as she has dementia and is on hospice for dementia. Daughter is with the patient in the room. Unable to assess the patient's mental status or pain level due to her confusion. Upon arrival patient laying blood pressure was 123/64 with a heart rate of 60 but when we set her up her blood pressure dropped to 94/53 but heart rate stayed at 60. She is not currently on any blood pressure medications. Patient has a history of arthritis, arrhythmia, bulging disc, tremors, gastroparesis, hypertension, hypo thyroidism, SC, glaucoma, dementia, fibromyalgia, TIA, pacemaker, hysterectomy, cholecystectomy, cardiac cath x4, J-tube, fibroma. She has had a [employer]aine [employer] Blaine Covid vaccine in January. Review of Systems: Review of Systems: Constitutional: Denies fever or chills. [] Eyes: Denies change in visual acuity. [] HENT: Denies nasal congestion or sore throat. [] Respiratory: Denies cough or shortness of breath. [] Cardiovascular: Denies chest pain or edema. [] GI: Denies abdominal pain, nausea, vomiting, bloody stools or diarrhea. [] : Denies dysuria. [] Musculoskeletal: Denies back pain or joint pain. [] Integument: Denies rash. [] Neurologic: Denies headache, focal weakness or sensory changes. [] Endocrine: Denies polyuria or polydipsia. [] Lymphatic: Denies swollen glands. [] Psychiatric: Denies depression or anxiety. [] Heart Score: C/O Chest Pain: No Risk Factors: Risk Factors: DM, Current or recent (<one month) smoker, HTN, HLP, family history of CAD, obesity. Risk Scores: Score 0 - 3: 2.5% MACE over next 6 weeks - Discharge Home Score 4 - 6: 20.3% MACE over next 6 weeks - Admit for Clinical Observation Score 7 - 10: 72.7% MACE over next 6 weeks - Early Invasive Strategies Current Medications: Current Medications Medications (Trade) Dose Ordered Sig/Chantell Start Time Stop Time Status Last Admin Dose Admin Sodium Chloride 1,000 ml @ 1,000 mls/hr 1X ONCE 05/05/21 13:15 05/05/21 14:14 05/05/21 13:36 1,000 MLS/HR Allergies: Allergies: Allergies Coded Allergies Type Severity Reaction Last Updated Verified Penicillins Allergy Severe Rash 10/19/18 Yes Sulfa (Sulfonamide Antibiotics) Allergy Severe Rash 10/19/18 Yes benzocaine Allergy Severe SHORTNESS OF BREATH LOCAL ANESTHETICS 10/19/18 Yes sulfite Allergy Severe Rash 10/19/18 Yes thimerosal Allergy Severe Anaphylaxis 10/19/18 Yes barium sulfate Allergy Intermediate rash 10/19/18 Yes monosodium glutamate Allergy Intermediate Rash 10/19/18 Yes nickel Allergy Intermediate SEE COMMENT 10/19/18 Yes NSAIDS (Non-Steroidal Anti-Inflamma Adverse Reaction Intermediate Nausea and Vomiting 10/19/18 Yes Physical Exam: PE: Constitutional: Well developed, well nourished, no acute distress, non-toxic appearance. [] HENT: Normocephalic, atraumatic, bilateral external ears normal, oropharynx moist, no oral exudates, nose normal. [] Eyes: PERRLA, EOMI, conjunctiva normal, no discharge. [] Neck: Normal range of motion, no tenderness, supple, no stridor. [] Cardiovascular:Heart rate regular rhythm, no murmur [] Lungs & Thorax: Bilateral breath sounds clear to auscultation [] Abdomen: Bowel sounds normal, soft, no tenderness, no masses, no pulsatile masses. [] Skin: Warm, dry, no erythema, no rash. [] Back: No tenderness, no CVA tenderness. [] Extremities: No tenderness, no cyanosis, no clubbing, ROM intact, no edema. [] Neurologic: Alert and oriented X self, normal motor function, normal sensory function, no focal deficits noted. [] Psychologic: Affect normal, judgement normal, mood normal. [] Current Patient Data: Labs: Laboratory Tests Test 05/05/21 13:30 White Blood Count 6.1 x10^3/uL (4.0-11.0) Red Blood Count 4.07 x10^6/uL (3.50-5.40) Hemoglobin 12.3 g/dL (12.0-15.5) Hematocrit 35.9 % (36.0-47.0) L Mean Corpuscular Volume 88 fL (79-100) Mean Corpuscular Hemoglobin 30 pg (25-35) Mean Corpuscular Hemoglobin Concent 34 g/dL (31-37) Red Cell Distribution Width 13.9 % (11.5-14.5) Platelet Count 195 x10^3/uL (140-400) Neutrophils (%) (Auto) 73 % (31-73) Lymphocytes (%) (Auto) 17 % (24-48) L Monocytes (%) (Auto) 9 % (0-9) Eosinophils (%) (Auto) 2 % (0-3) Basophils (%) (Auto) 0 % (0-3) Neutrophils # (Auto) 4.4 x10^3/uL (1.8-7.7) Lymphocytes # (Auto) 1.0 x10^3/uL (1.0-4.8) Monocytes # (Auto) 0.5 x10^3/uL (0.0-1.1) Eosinophils # (Auto) 0.1 x10^3/uL (0.0-0.7) Basophils # (Auto) 0.0 x10^3/uL (0.0-0.2) Sodium Level 144 mmol/L (136-145) Potassium Level 4.2 mmol/L (3.5-5.1) Chloride Level 108 mmol/L (98-107) H Carbon Dioxide Level 30 mmol/L (21-32) Anion Gap 6 (6-14) Blood Urea Nitrogen 13 mg/dL (7-20) Creatinine 1.0 mg/dL (0.6-1.0) Estimated GFR (Cockcroft-Gault) 55.1 BUN/Creatinine Ratio 13 (6-20) Glucose Level 109 mg/dL (70-99) H Calcium Level 9.0 mg/dL (8.5-10.1) Magnesium Level 1.8 mg/dL (1.8-2.4) Total Bilirubin 0.4 mg/dL (0.2-1.0) Aspartate Amino Transferase (AST) 20 U/L (15-37) Alanine Aminotransferase (ALT) 27 U/L (14-59) Alkaline Phosphatase 38 U/L (46-116) L Troponin I Quantitative < 0.017 ng/mL (0.000-0.055) GN-Bts-C-Type Natriuretic Peptide 109 pg/mL (0-124) Total Protein 6.7 g/dL (6.4-8.2) Albumin 3.4 g/dL (3.4-5.0) Albumin/Globulin Ratio 1.0 (1.0-1.7) Laboratory Tests 05/05/21 13:30 Laboratory Tests 05/05/21 13:30 Vital Signs: Vital Signs Date Time Temp Pulse Resp B/P (MAP) Pulse Ox O2 Delivery O2 Flow Rate FiO2 05/05/21 12:55 98.5 60 20 123/64 (66) 98 Room Air 98.5 EKG: EK and read as sinus rhythm and no STEMI [] Radiology/Procedures: Radiology/Procedures: [] Impression: [facility] [address] [place] [address] IMAGING REPORT Signed PATIENT: VENUS SOLIZ ACCOUNT: [id number] : 1950 LOCATION: ER AGE: 70 SEX: F EXAM STATUS: PRE ER ORD. PHYSICIAN: SANDY ALDANA APRN REASON: SYNCOPE, FALL PROCEDURE: CT HEAD AND CERVICAL SPINE WO CT Head W/O Contrast: History: Reason: SYNCOPE, FALL / Spl. Instructions: / History: Comparison: none Axial images were obtained without contrast. There is moderate diffuse atrophy. There is no mass effect, extraaxial fluid collections or hydrocephalus. There is no gross bleed. Mild, patchy periventricular and subcortical white matter hypoattenuation is seen. There is no focal loss of pierce-white matter distinction to suggest acute ischemia, i.e. stroke. Impression: No acute findings. End impression CT C-Spine without contrast: Clinical History: Reason: SYNCOPE, FALL / Spl. Instructions: / History: Technique: Axial helical images of the cervical spine were obtained without contrast, axial coronal and sagittal reconstruction was performed. Findings: There is no loss of vertebral body stature. There is no prevertebral soft tissue swelling. There is grade 1 anterolisthesis of C2 on C3 and C4 on C5. There is mild reversal of the normal cervical lordosis which can be positional or could be chronic. The C1-C2 relationship is normal. The visualized osseous structures appear normal. Evaluation of the central canal is limited without contrast. There is loss of intervertebral disc height and marginal spurring at endplates at C3-C4 and C5-C6 and C6-C7. The disc osteophytic ridges at these levels results in flattening of the thecal sac. There does not appear to be gross flattening of the cervical cord. There is marked narrowing of multiple neuroforamen. Impression: No acute findings. Clinical correlation suggested. End impression PQRS Compliance Statement: One or more of the following individualized dose reduction techniques were utilized for this examination: 1. Automated exposure control 2. Adjustment of the mA and/or kV according to patient size 3. Use of iterative reconstruction technique Electronically signed by: Joseluis Quintanilla III, MD (05/05/2021 2:00 PM) [facility] DICTATED and SIGNED BY: JOSELUIS QUINTANILLA III, MD DATE: 05/05/21 [id number] [facility] [address] [place] [address] IMAGING REPORT Signed PATIENT: VENUS SOLIZ ACCOUNT: [id number] : 1950 LOCATION: ER AGE: 70 SEX: F EXAM STATUS: PRE ER ORD. PHYSICIAN: SANDY ALDANA APRN REASON: SYNCOPE PROCEDURE: PORTABLE CHEST 1V XR CHEST 1V History: Reason: SYNCOPE / Spl. Instructions: / History: Comparison: None. Findings: Hyperinflation. No consolidation or pleural effusion. Normal heart size. No pneumothorax. Left sided pacemaker. Prior granulous disease within the chest. Impression: 1. No acute cardiopulmonary process. Electronically signed by: Glen West DO (05/05/2021 1:49 PM) [id number] DICTATED and SIGNED BY: JESÚSGLEN Duncan DO DATE: 05/05/21 [id number] Course & Med Decision Making: Course & Med Decision Making Pertinent Labs and Imaging studies reviewed. (See chart for details) See HPI. Alert and oriented to herself. Daughter at bedside. Abdomen is soft and nontender. Lungs are clear to all station all lobes. Skin pink warm and dry. Patient received a liter of fluid bolus in the ED. She received 500 fluid bolus from EMS. Patient's blood pressure has improved. Patient is stable. Blood pressure is improving. Patient got up to go to the restroom she did get slightly dizzy but was able to walk with nursing help to the restroom. Due to patient's comorbidities she will be admitted for observation. Patient's daughter did that hospice no that she is being admitted for observation. They agree to observation admission. Chest x-ray showed no acute findings. She did get a Blaine & Blaine vaccine. [] Dragon Disclaimer: Dragon Disclaimer: This electronic medical record was generated, in whole or in part, using a voice recognition dictation system. Departure Departure Impression: Primary Impression: Orthostatic hypotension Additional Impression: Syncope Qualified Codes: R55 - Syncope and collapse Disposition: ADMITTED INPATIENT Admitting Physician: HIMS Referrals: LUCIANA RODRIGUEZ MD (PCP) SANDY ALDANA CERTIFIED REGISTERED LOCKSMITH May 05, 2021 14:12
[2021-05-05 14:46] LABS: BARBITURATES NEG (NEG); BENZODIAZEPINES NEG (NEG); CANNABINOIDS NEG (NEG); COCAINE NEG (NEG); METHADONE NEG (NEG); OPIATES NEG (NEG); PHENCYCLIDINE NEG (NEG)
[2021-05-05 14:47] LABS: AMPHETAMINE/METHAMPHETAMINE NEG (NEG)
[2021-05-05 14:53] LABS: BILIRUBIN,URINE NEGATIVE (NEG); CLARITY,URINE CLEAR; COLOR,URINE YELLOW; HYALINE CASTS, URINE MODERATE /HPF; NITRITE,URINE NEGATIVE (NEG); PH,URINE 6.5 (<5.0-8.0); PROTEIN,URINE NEGATIVE (NEG-TRACE); UROBILINOGEN,URINE 0.2 mg/dL (0.2 mg/dL)
[2021-05-05 14:54] LABS: BACTERIA,URINE 0 /HPF (0-FEW); RBC,URINE 0 /HPF (0-2)
[2021-05-05] MEDS ORDERED: ACETAMINOPHEN 325 MG TABLET. PO ONE (15:15)
--- NOTE | 2021-05-05 15:58 | PDOC1 ---
History and Physical Date of Admission Date of Admission DATE: 05/05/21 TIME: 15:57 Identification/Chief Complaint Chief Complaint Syncope Source Source: Caregiver, Chart review History of Present Illness History of Present Illness Ms Law is a 70 year old female w/ PMHx Tachy-aurora syndrome/PPM in situ ([email or web address]) with 1.5 year battery life, PAFIB, non-obstructive CAD, hypothyroidism, HLD, fibromyalgia, multiple abdominal surgeries who comes to ED via EMS after an episode of dizziness and LOC at [facility] while with her son. She she told him she was dizzy and going to pass out and he caught her and he lped her sit on the floor and noted that she closed her eyes and bystander called EMS and on arrival he noted her blood pressure was 62/50 sitting up and laid her down for blood pressure was 74/56. Her son noted that she has been on hospice for dementia and she is oriented to person only at baseline. Patient is pleasantly confused is oriented to person only on examination. In ED noted with blood pressure was 123/64 with a heart rate of 60 and noted with standing blood pressure dropped to 94/53, HR 60bpm, paced on residential monitor She was given a 1 L bolus in the ED with improvement in her vital signs. She has had a [employer] Covid vaccine in January. Labs with WBC 6.1, Hb 12.3, platelets 195, NA 144, K 42, BUN 13, CR 1, glucose 109, LFTs within normal laboratory limits, troponin 0, NT proBNP 109, urine drug screen negative, urinalysis bland. CT head and cervical spine reviewed with no acute abnormalities no bleeding or fracture noted. Chest radiograph with no acute abnormalities noted pacer in good position. On my arrival daughter and DPOA is with the patient in the room. ED called for observation admission for syncope. Daughters requested that patient is active in hospice and with improvement in vital signs after fluid bolus this was likely orthostatic hypotension due to mild dehydration or vasovagal syncope and she requests no further work-up as this is previously been worked up back in 2019. Past Medical History Cardiovascular: AFIB, CAD, HTN, GA, Syncope, Hyperlipidemia, Other CENTRAL NERVOUS SYSTEM: TIA, Other GI: Irritable bowel disease, Other Heme/Onc: No pertinent hx Hepatobiliary: No pertinent hx Psych: Anxiety, Depression Musculoskeletal: low back pain, Osteoarthritis, Other Rheumatologic: Fibromyalgia Infectious disease: No pertinent hx Renal/: UTI Endocrine: Other Past Surgical History Past Surgical History: Pacemaker, Tonsillectomy, Hysterectomy, Other Family History Family History: Cancer Social History ALCOHOL: none Drugs: None Current Medications Current Medications Current Medications Sodium Chloride 1,000 ml @ 1,000 mls/hr 1X ONCE IV Last administered on at 13:36; Start 05/05/21 at 13:15; Stop 05/05/21 at 14:14; Status DC Acetaminophen (Tylenol) 650 mg 1X ONCE PO Last administered on 05/05/21at 15:14; Start 05/05/21 at 15:15; Stop 05/05/21 at 15:16; Status DC Active Scripts Active Reported Isosorbide Mononitrate Er (Isosorbide Mononitrate) 30 Mg Tab.er.24h 30 Mg PO DAILY Ranexa (Ranolazine) 500 Mg Tab.er.12h 1 Tab PO BID Lamotrigine 200 Mg Tablet 1 Tab PO DAILY Multivitamins (Multivitamin) 1 Each Tablet 1 Tab PO DAILY Selenium (Selenomethionine) 200 Mcg Tablet 200 Mcg PO DAILY Baclofen 10 Mg Tablet 10 Mg PO BID Celebrex (Celecoxib) 100 Mg Capsule 1 Cap PO DAILY Olanzapine 5 Mg Tablet 2.5 Mg PO HS Aspir-Low (Aspirin) 81 Mg Tablet.dr 1 Tab PO DAILY Tizanidine Hcl 4 Mg Tablet 1 Tab PO TID Ondansetron Odt (Ondansetron) 4 Mg Tab.rapdis 0.5 Tab PO PRN Q6-8HRS Levothyroxine Sodium 100 Mcg Tablet 1 Tab PO DAILY Zyrtec (Cetirizine Hcl) 10 Mg Tablet 10 Mg PO DAILY Benadryl (Diphenhydramine Hcl) 25 Mg Capsule 50 Mg PO Q6HRS PRN Tramadol Hcl 50 Mg Tablet 1 Tab PO PRN Q6HRS [biotin] 5,100 Mg PO DAILY Lumigan (Bimatoprost) 2.5 Ml Drops 1 Drop EACHEYE QHS Pravastatin Sodium 40 Mg Tablet 40 Mg PO DAILY Gabapentin 100 Mg Capsule 100 Mg PO TID Losartan Potassium 50 Mg Tablet 100 Mg PO DAILY Acyclovir 400 Mg Tablet 800 Mg PO DAILY Allergies Allergies: Coded Allergies: Penicillins (Verified Allergy, Severe, Rash, 10/19/18) Sulfa (Sulfonamide Antibiotics) (Verified Allergy, Severe, Rash, 10/19/18) benzocaine (Verified Allergy, Severe, SHORTNESS OF BREATH LOCAL ANESTHETICS, 10/19/18) sulfite (Verified Allergy, Severe, Rash, 10/19/18) thimerosal (Verified Allergy, Severe, Anaphylaxis, 10/19/18) and rash barium sulfate (Verified Allergy, Intermediate, rash, 10/19/18) monosodium glutamate (Verified Allergy, Intermediate, Rash, 10/19/18) nickel (Verified Allergy, Intermediate, SEE COMMENT, 10/19/18) pt said the metal decomposes on her skin - itching NSAIDS (Non-Steroidal Anti-Inflamma (Verified Adverse Reaction, Intermediate, Nausea and Vomiting, 10/19/18) ROS Review of System Patient has no complaints for negative review of systems thus unreliable given her advanced dementia. General: No: Chills, Night Sweats, Fatigue, Malaise, Appetite, Other PSYCHOLOGICAL ROS: No: Anxiety, Behavioral Disorder, Concentration difficultie, Decreased libido, Depression, Disorientation, Hallucinations, Hostility, Irrita blity, Memory difficulties, Mood Swings, Obsessive thoughts, Physical abuse, Sexual abuse, Sleep disturbances, Suicidal ideation, Other Eyes: No Blurry vision, No Decreased vision, No Double vision, No Dry eyes, No Excessive tearing, No Eye Pain, No Itchy Eyes, No Loss of vision, No Photophobia, No Scotomata, No Uses contacts, No Uses glasses, No Other HEENT: No: Heacaches, Visual Changes, Hearing change, Nasal congestion, Nasal discharge, Oral lesions, Sinus pain, Sore Throat, Epistaxis, Sneezing, Snoring, Tinnitus, Vertigo, Vocal changes, Other ALLERGY AND IMMUNOLOGY: No: Hives, Insect Bite Sensitivity, Itchy/Watery Eyes, Nasal Congestion, Post Nasal Drip, Seasonal Allergies, Other Hematological and Lymphatic: No: Bleeding Problems, Blood Clots, Blood Transfusions, Brusing, Night Sweats, Pallor, Swollen Lymph Nodes, Other ENDOCRINE: No: Breast Changes, Galactorrhea, Hair Pattern Changes, Hot Flashes, Malaise/lethargy, Mood Swings, Palpitations, Polydipsia/polyuria, Skin Changes, Temperature Intolerance, Unexpected Weight Changes, Other Breast: No New/Changing Breast Lumps, No Nipple changes, No Nipple discharge, No Other Respiratory: No: Cough, Hemoptysis, Orthopnea, Pleuritic Pain, Shortness of breath, SOB with excertion, Sputum Changes, Stridor, Tachypnea, Wheezing, Other Cardiovascular: No Chest Pain, No Palpitations, No Orthopnea, No Paroxysmal Noc. Dyspnea, No Edema, No Lt Headedness, No Other Gastrointestinal: No Nausea, No Vomiting, No Abdominal Pain, No Diarrhea, No Constipation, No Melena, No Hematochezia, No Other Genitourinary: No Dysuria, No Frequency, No Incontinence, No Hematuria, No Retention, No Discharge, No Urgency, No Pain, No Flank Pain, No Other, No , No , No , No , No , No , No Musculoskeletal: No Gait Disturbance, No Joint Pain, No Joint Stiffness, No Joint Swelling, No Muscle Pain, No Muscular Weakness, No Pain In:, No Swelling In:, No Other Neurological: No Behavorial Changes, No Bowel/Bladder ControlChng, No Confusion, No Dizziness, No Gait Disturbance, No Headaches, No Impaired Coord/balance, No Memory Loss, No Numbness/Tingling, No Seizures, No Speech Problems, No Tremors, No Visual Changes, No Weakness, No Other Skin: No Dry Skin, No Eczema, No Hair Changes, No Lumps, No Mole Changes, No Mottling, No Nail Changes, No Pruritus, No Rash, No Skin Lesion Changes, No Other, No Acne Physical Exam General: Alert, Cooperative, No acute distress HEENT: Atraumatic, PERRLA, EOMI, Mucous membr. moist/pink Lungs: Clear to auscultation, Normal air movement Heart: S1S2, RRR, no thrills, no rubs, no gallops, no murmurs Abdomen: Normal bowel sounds, Soft, No tenderness, No hepatosplenomegaly, No masses Rectal Exam: not examined Extremities: No clubbing, No cyanosis, No edema, Normal pulses, No tenderness/swelling Skin: No rashes, No breakdown, No significant lesion Neuro: Normal gait, Normal speech, Strength at 5/5 X4 ext, Normal tone, Sensation intact, Cranial nerves 3-12 NL, Reflexes 2+ Psych/Mental Status: Mood NL, Other (Pleasantly confused, oriented x1 to person) Vitals Vitals Vital Signs Date Time Temp Pulse Resp B/P (MAP) Pulse Ox O2 Delivery O2 Flow Rate FiO2 8/22/21 12:55 98.5 60 20 123/64 (66) 98 Room Air 98.5 Labs Labs Laboratory Tests Test 05/05/21 13:30 05/05/21 14:32 White Blood Count 6.1 x10^3/uL (4.0-11.0) Red Blood Count 4.07 x10^6/uL (3.50-5.40) Hemoglobin 12.3 g/dL (12.0-15.5) Hematocrit 35.9 % (36.0-47.0) Mean Corpuscular Volume 88 fL (79-100) Mean Corpuscular Hemoglobin 30 pg (25-35) Mean Corpuscular Hemoglobin Concent 34 g/dL (31-37) Red Cell Distribution Width 13.9 % (11.5-14.5) Platelet Count 195 x10^3/uL (140-400) Neutrophils (%) (Auto) 73 % (31-73) Lymphocytes (%) (Auto) 17 % (24-48) Monocytes (%) (Auto) 9 % (0-9) Eosinophils (%) (Auto) 2 % (0-3) Basophils (%) (Auto) 0 % (0-3) Neutrophils # (Auto) 4.4 x10^3/uL (1.8-7.7) Lymphocytes # (Auto) 1.0 x10^3/uL (1.0-4.8) Monocytes # (Auto) 0.5 x10^3/uL (0.0-1.1) Eosinophils # (Auto) 0.1 x10^3/uL (0.0-0.7) Basophils # (Auto) 0.0 x10^3/uL (0.0-0.2) Sodium Level 144 mmol/L (136-145) Potassium Level 4.2 mmol/L (3.5-5.1) Chloride Level 108 mmol/L (98-107) Carbon Dioxide Level 30 mmol/L (21-32) Anion Gap 6 (6-14) Blood Urea Nitrogen 13 mg/dL (7-20) Creatinine 1.0 mg/dL (0.6-1.0) Estimated GFR (Cockcroft-Gault) 55.1 BUN/Creatinine Ratio 13 (6-20) Glucose Level 109 mg/dL (70-99) Calcium Level 9.0 mg/dL (8.5-10.1) Magnesium Level 1.8 mg/dL (1.8-2.4) Total Bilirubin 0.4 mg/dL (0.2-1.0) Aspartate Amino Transf (AST/SGOT) 20 U/L (15-37) Alanine Aminotransferase (ALT/SGPT) 27 U/L (14-59) Alkaline Phosphatase 38 U/L (46-116) Troponin I Quantitative < 0.017 ng/mL (0.000-0.055) PN-Rnb-E-Type Natriuretic Peptide 109 pg/mL (0-124) Total Protein 6.7 g/dL (6.4-8.2) Albumin 3.4 g/dL (3.4-5.0) Albumin/Globulin Ratio 1.0 (1.0-1.7) Urine Collection Type Unknown Urine Color Yellow Urine Clarity Clear Urine pH 6.5 (<5.0-8.0) Urine Specific Dwight 1.015 (1.000-1.030) Urine Protein Negative mg/dL (NEG-TRACE) Urine Glucose (UA) Negative mg/dL (NEG) Urine Ketones (Stick) Negative mg/dL (NEG) Urine Blood Negative (NEG) Urine Nitrite Negative (NEG) Urine Bilirubin Negative (NEG) Urine Urobilinogen Dipstick 0.2 mg/dL (0.2 mg/dL) Urine Leukocyte Esterase Small (NEG) Urine RBC 0 /HPF (0-2) Urine WBC 1-4 /HPF (0-4) Urine Bacteria 0 /HPF (0-FEW) Urine Hyaline Casts Moderate /HPF Urine Mucus Marked /LPF Urine Opiates Screen Neg (NEG) Urine Methadone Screen Neg (NEG) Urine Barbiturates Neg (NEG) Urine Phencyclidine Screen Neg (NEG) Urine Amphetamine/Methamphetamine Neg (NEG) Urine Benzodiazepines Screen Neg (NEG) Urine Cocaine Screen Neg (NEG) Urine Cannabinoids Screen Neg (NEG) Urine Ethyl Alcohol Neg (NEG) Laboratory Tests Test 05/05/21 13:30 05/05/21 14:32 White Blood Count 6.1 x10^3/uL (4.0-11.0) Red Blood Count 4.07 x10^6/uL (3.50-5.40) Hemoglobin 12.3 g/dL (12.0-15.5) Hematocrit 35.9 % (36.0-47.0) Mean Corpuscular Volume 88 fL (79-100) Mean Corpuscular Hemoglobin 30 pg (25-35) Mean Corpuscular Hemoglobin Concent 34 g/dL (31-37) Red Cell Distribution Width 13.9 % (11.5-14.5) Platelet Count 195 x10^3/uL (140-400) Neutrophils (%) (Auto) 73 % (31-73) Lymphocytes (%) (Auto) 17 % (24-48) Monocytes (%) (Auto) 9 % (0-9) Eosinophils (%) (Auto) 2 % (0-3) Basophils (%) (Auto) 0 % (0-3) Neutrophils # (Auto) 4.4 x10^3/uL (1.8-7.7) Lymphocytes # (Auto) 1.0 x10^3/uL (1.0-4.8) Monocytes # (Auto) 0.5 x10^3/uL (0.0-1.1) Eosinophils # (Auto) 0.1 x10^3/uL (0.0-0.7) Basophils # (Auto) 0.0 x10^3/uL (0.0-0.2) Sodium Level 144 mmol/L (136-145) Potassium Level 4.2 mmol/L (3.5-5.1) Chloride Level 108 mmol/L (98-107) Carbon Dioxide Level 30 mmol/L (21-32) Anion Gap 6 (6-14) Blood Urea Nitrogen 13 mg/dL (7-20) Creatinine 1.0 mg/dL (0.6-1.0) Estimated GFR (Cockcroft-Gault) 55.1 BUN/Creatinine Ratio 13 (6-20) Glucose Level 109 mg/dL (70-99) Calcium Level 9.0 mg/dL (8.5-10.1) Magnesium Level 1.8 mg/dL (1.8-2.4) Total Bilirubin 0.4 mg/dL (0.2-1.0) Aspartate Amino Transf (AST/SGOT) 20 U/L (15-37) Alanine Aminotransferase (ALT/SGPT) 27 U/L (14-59) Alkaline Phosphatase 38 U/L (46-116) Troponin I Quantitative < 0.017 ng/mL (0.000-0.055) FN-Ufv-Y-Type Natriuretic Peptide 109 pg/mL (0-124) Total Protein 6.7 g/dL (6.4-8.2) Albumin 3.4 g/dL (3.4-5.0) Albumin/Globulin Ratio 1.0 (1.0-1.7) Urine Collection Type Unknown Urine Color Yellow Urine Clarity Clear Urine pH 6.5 (<5.0-8.0) Urine Specific Dwight 1.015 (1.000-1.030) Urine Protein Negative mg/dL (NEG-TRACE) Urine Glucose (UA) Negative mg/dL (NEG) Urine Ketones (Stick) Negative mg/dL (NEG) Urine Blood Negative (NEG) Urine Nitrite Negative (NEG) Urine Bilirubin Negative (NEG) Urine Urobilinogen Dipstick 0.2 mg/dL (0.2 mg/dL) Urine Leukocyte Esterase Small (NEG) Urine RBC 0 /HPF (0-2) Urine WBC 1-4 /HPF (0-4) Urine Bacteria 0 /HPF (0-FEW) Urine Hyaline Casts Moderate /HPF Urine Mucus Marked /LPF Urine Opiates Screen Neg (NEG) Urine Methadone Screen Neg (NEG) Urine Barbiturates Neg (NEG) Urine Phencyclidine Screen Neg (NEG) Urine Amphetamine/Methamphetamine Neg (NEG) Urine Benzodiazepines Screen Neg (NEG) Urine Cocaine Screen Neg (NEG) Urine Cannabinoids Screen Neg (NEG) Urine Ethyl Alcohol Neg (NEG) Images Images CT Head W/O Contrast: There is moderate diffuse atrophy. There is no mass effect, extraaxial fluid collections or hydrocephalus. There is no gross bleed. Mild, patchy periventricular and subcortical white matter hypoattenuation is seen. There is no focal loss of pierce-white matter distinction to suggest acute ischemia, i.e. stroke. Impression: No acute findings. CT C-Spine without contrast: There is no loss of vertebral body stature. There is no prevertebral soft tissue swelling. There is grade 1 anterolisthesis of C2 on C3 and C4 on C5. There is mild reversal of the normal cervical lordosis which can be positional or could be chronic. The C1-C2 relationship is normal. The visualized osseous structures appear normal. Evaluation of the central canal is limited without contrast. There is loss of intervertebral disc height and marginal spurring at endplates at C3-C4 and C5-C6 and C6-C7. The disc osteophytic ridges at these levels results in flattening of the thecal sac. There does not appear to be gross flattening of the cervical cord. There is marked narrowing of multiple neuroforamen. Impression: No acute findings. Clinical correlation suggested. Chest radiograph: left-sided pacemakerhyperinflation good position no acute pulmonary process VTE Prophylaxis Ordered VTE Prophylaxis Devices: Yes VTE Pharmacological Prophylaxi: Yes Assessment/Plan Assessment/Plan A/P: Syncope - likely vasovagal vs orthostatic hypotension from mild dehydration, already improved upon my examination H/o Tachy-aurora syndrome/PPM in situ ([email or web address]) EIR 1.5 yrs. H/o PAFIB - sinus Fibromyalgia - stable Hx of orthostasis - prior w/u in 2019 and prior, daughter wishes for no further w/u Nonobstructive CAD - noted in 2009. In 2019 had EF normal per TTE Hx of multiple abdominal surgery including recent fistula closure and bowel resection: 06/2017 which she tolerated well. Hypothyroidism - on levothyroxine at home HLD - no longer on statin in hospice care FEN - General diet PPX - ambulatory CODE - DNR/DNI DIspo - ok for discharge from ED with hospice care to continue at home Justifications for Admission Other Justification SALENA HOLLINGSWORTH MD May 05, 2021 15:58
[2021-05-05 18:17] VITALS: BP 150/67
--- NOTE | 2021-05-05 18:24 | SNU/HH DC ---
DISCHARGE ORDERS DISCHARGE INFORMATION: DISCHARGE DATE: May 05, 2021 FINAL DIAGNOSIS Problems Medical Problems: (1) Orthostatic hypotension Status: Acute (2) Syncope Status: Acute CONDITION ON DISCHARGE: Stable CODE STATUS: Code Status: DNR/DNI HOSPICE: HOSPICE: Yes POST DISCHARGE ORDERS: ACTIVITY ORDERS: Other, see below WEIGHT BEARING STATUS: As tolerated BATHING ORDERS: No Tub Bath until see DIET AFTER DISCHARGE: Regular WOUND/INCISION CARE: Other, see below CHECKS AFTER DISCHARGE: CHECKS AFTER DISCHARGE: Check blood press - daily TREATMENT/EQUIPMENT ORDERS: ADAPTIVE EQUIPMENT NEEDED: Cane DISCHARGE MEDICATIONS: Home Meds Reported Medications Multivitamin (MULTIVITAMINS) 1 Each Tablet, 1 TAB PO DAILY for supplement, #90 TAB 3 Refills 10/18/18 Selenomethionine (SELENIUM) 200 Mcg Tablet, 200 MCG PO DAILY for supplement, TAB 10/18/18 Celecoxib (CELEBREX) 100 Mg Capsule, 1 CAP PO DAILY for pain, #60 CAP 3 Refills 10/18/18 Tizanidine Hcl (TIZANIDINE HCL) 4 Mg Tablet, 1 TAB PO TID for muscle spasm, #90 TAB 10/18/18 Ondansetron (ONDANSETRON ODT) 4 Mg Tab.rapdis, 0.5 TAB PO PRN Q6-8HRS for nausea, #8 TAB 10/18/18 Levothyroxine Sodium (LEVOTHYROXINE SODIUM) 100 Mcg Tablet, 1 TAB PO DAILY, #30 TAB 5 Refills 02/09/18 Cetirizine Hcl (ZYRTEC) 10 Mg Tablet, 10 MG PO DAILY, TAB 07/13/17 Tramadol Hcl (TRAMADOL HCL) 50 Mg Tablet, 1 TAB PO PRN Q6HRS, #30 TAB 04/03/17 [biotin] No Conflict Check, 5100 MG PO DAILY 04/03/17 Bimatoprost (LUMIGAN) 2.5 Ml Drops, 1 DROP EACHEYE QHS, #2.5 ML 3 Refills 12/05/16 Gabapentin (Gabapentin) 100 Mg Capsule, 100 MG PO TID, #90 04/17/16 Discontinued Reported Medications Isosorbide Mononitrate (ISOSORBIDE MONONITRATE ER) 30 Mg Tab.er.24h, 30 MG PO DAILY for unknown, TAB.SR 10/18/18 Ranolazine (RANEXA) 500 Mg Tab.er.12h, 1 TAB PO BID for unknown, #180 TAB 3 Refills 10/18/18 Lamotrigine (LAMOTRIGINE) 200 Mg Tablet, 1 TAB PO DAILY for depression, #30 TAB 2 Refills 10/18/18 Baclofen (BACLOFEN) 10 Mg Tablet, 10 MG PO BID for MUSCLE RELAXER, #30 TAB 0 Refills 10/18/18 Olanzapine (OLANZAPINE) 5 Mg Tablet, 2.5 MG PO HS for unknown, TAB 10/18/18 Aspirin (ASPIR-LOW) 81 Mg Tablet.dr, 1 TAB PO DAILY for blood thinner, #30 TAB 3 Refills 10/18/18 Diphenhydramine Hcl (BENADRYL) 25 Mg Capsule, 50 MG PO Q6HRS PRN for ALLERGIES, CAP 04/03/17 Pravastatin Sodium (PRAVASTATIN SODIUM) 40 Mg Tablet, 40 MG PO DAILY, TAB 07/15/16 Losartan Potassium (LOSARTAN POTASSIUM) 50 Mg Tablet, 100 MG PO DAILY for hype rtension, TAB 03/13/16 Acyclovir (ACYCLOVIR) 400 Mg Tablet, 800 MG PO DAILY for unknown, TAB 10/29/15 SALENA HOLLINGSWORTH MD May 05, 2021 18:24
--- NOTE | 2021-05-05 21:58 | EKG ---
[facility] [address] [place] [address] Test Date: 2021-05-05 Test Time: 13:34:01 Pat Name: VENUS SOLIZ Department: Room: Gender: F Court Operations Clerk: : [id number] Requested By: SANDY ALDANA Order Number: [id number] Reading MD: Measurements Intervals [place] Rate: 60 P: 52 SC: 206 QRS: 41 QRSD: 90 T: 42 QT: 434 QTc: 438 Interpretive Statements SINUS RHYTHM NORMAL ECG RI6.01 No previous ECG available for comparison
== END 2021-05-05 18:57 | disposition home or self-care (01) ==
LOC: ER 12:51 → INTOOBSV 16:17 → 5 NORTH 16:17
PROVIDERS: ADMIT Internal Medicine; ATTEND Internal Medicine
DX: R55 Syncope and collapse (principal); I48.0 Paroxysmal atrial fibrillation; I25.10 Atherosclerotic heart disease of native coronary artery without angina pectoris; E03.9 Hypothyroidism, unspecified; E78.5 Hyperlipidemia, unspecified; E86.0 Dehydration; F03.90 Unspecified dementia, unspecified severity, without behavioral disturbance, psychotic disturbance, mood disturbance, and anxiety; I10 Essential (primary) hypertension; M43.12 Spondylolisthesis, cervical region; M79.7 Fibromyalgia; Z51.5 Encounter for palliative care; Z66 Do not resuscitate; Z86.73 Personal history of transient ischemic attack (TIA), and cerebral infarction without residual deficits; Z90.710 Acquired absence of both cervix and uterus; Z95.0 Presence of cardiac pacemaker; Z79.01 Long term (current) use of anticoagulants
CPT/HCPCS: 36415; 70450; 71045; 72125; 80053; 80307; 81001; 83735; 83880; 84484; 85025; 87086; 93005; 96360; 99285; G0378; J7030; G0379